=== PATIENT | female | born 1970 | race African-American/Black ===

== ENCOUNTER 2016-10-31 19:56 | Emergency (ER) | payer MEDICAID ==
[~2016-10-31] VITALS: Ht 160 cm; Wt 140.6 kg
[~2016-10-31 19:56] MED LIST: ACETAMINOPHEN-1 EAC1 ORAL; ALBUTEROL SULF8.5 GM INH; ASPIRIN EC81 MG ORAL; AZITHROMYCIN250 MG ORAL; FUROSEMIDE40 MG ORAL; GUAIFENESIN-CO118 M1 ORAL; HYDROCHLOROTHIA25 MG ORAL; K-DUR20 MEQ ORAL; MAALOX MAXIMUM355 M1 PO; METFORMIN HCL1000 M1 ORAL; ROBITUSSIN DM5 ML ORAL; lasix
--- NOTE | 2016-10-31 20:03 | Emergency Room Report ---
History of Present Illness General Chief Complaint: To Be Triaged Source: Patient Present Illness HPI 46YOF walk-in patient with pain in right foot for 1 week. Denies trauma. History of CHF, DM. Compliant with medication. "Doubled up" on Lasix 40mg today. Denies fever/chills, redness to lower extremities. Denies calf pain, swelling. Allergies: Coded Allergies: No Known Allergies (Unverified , 07/11/13) Patient History Past Medical History: DM, HTN, CHF Past Surgical History: none Pertinent Family History: none Social History: Denies: alcohol use, drug use, smoking Now: No Immunizations: UTD Reviewed Nursing Documentation: PMH: Agreed, PSxH: Agreed Nursing Documentation-PMH Hx Hypertension: Yes - Bronchitis Hx Asthma: Yes Hx Diabetes: Yes Review of Systems All Other Systems: negative except mentioned in HPI Physical Exam Sp02 EP Interpretation: reviewed, normal General Appearance: normal inspection, well appearing, no apparent distress, alert, GCS 15, non-toxic Head: normocephalic, atraumatic Eyes: bilateral eye EOMI, bilateral eye PERRL ENT: normal ENT inspection, hearing grossly normal, normal voice Neck: normal inspection, full range of motion, supple, no bony tend Respiratory: normal inspection, lungs clear, normal breath sounds, no respiratory distress, no retraction, no wheezing Cardiovascular #1: regular rate, rhythm, no edema Gastrointestinal: normal inspection, normal bowel sounds, non tender, soft, no guarding, no hernia Genitourinary: no CVA tenderness Neurologic: normal inspection, alert, oriented x3, responsive, allergy physician III-XII nml as tested, motor strength/tone normal, speech normal Psychiatric: normal inspection, judgement/insight normal, mood/affect normal Skin: normal inspection, normal color, no rash, other - Chronic venous stasis dermatitis bilaterally. No pitting edema Medical Decision Making Diagnostic Impression: Primary Impression: Edema, peripheral Additional Impression: Right foot pain ER Course Glucose 141 VS notable for mild tachycardia. Afebrile No acute respiratory distress No tachypnea Difficulty to auscultate lungs sounds d/t habitus but bedside sono does not show pulm edema Right foot pain and bilateral chronic venous stasis dermatitis No sign of cellulitis or signs of infection Atraumatic Advised to STOP ibuprofen if taking lasix Rx Robaxin PMD followup Status: improved Disposition: HOME, SELF-CARE Scripts Methocarbamol* (ROBAXIN-750*) 750 Mg Tablet 750 MG PO TID, #30 TAB 0 Refills Prov: GOYO NO M.D. 10/31/16 GOYO NO M.D. Oct 31, 2016 20:03
[2016-10-31] MEDS ORDERED: ROBAXIN-750750 MG PO (20:26)
[2016-10-31 20:34] VITALS: BP 108/54
== END 2016-10-31 20:38 | disposition home or self-care (01) ==
LOC: EMR 20:16
DX: M25.571 Pain in right ankle and joints of right foot (principal); R60.9 Edema, unspecified; I50.9 Heart failure, unspecified; E11.9 Type 2 diabetes mellitus without complications; I10 Essential (primary) hypertension; J45.909 Unspecified asthma, uncomplicated; R00.0 Tachycardia, unspecified; I83.12 Varicose veins of left lower extremity with inflammation; I83.11 Varicose veins of right lower extremity with inflammation
CPT/HCPCS: 99283

== ENCOUNTER 2016-12-16 10:22 | Inpatient (IN) | payer MEDICAID ==
[~2016-12-16] VITALS: Ht 160 cm; Wt 85.3 kg
[~2016-12-16 10:22] MED LIST changes: +HYDROCODON-ACE1 EA15 ORAL; +INDOMETHACIN50 MG PO; +ROBAXIN-750750 MG PO
[2016-12-16 10:56] VITALS: BP 91/55
[2016-12-16 11:26] LABS: BASOPHILS % (AUTO) 0.4 % (0.0-2.0); MEAN CORPUSCULAR HEMOGLOBIN 20.6 PG (27.0-31.0); MEAN CORPUSCULAR HGB CONC 28.5 G/DL (32.0-36.0); MEAN CORPUSCULAR VOLUME 72 FL (80-99); MEAN PLATELET VOLUME 7.7 FL (6.5-10.1); MONOCYTES % (AUTO) 8.7 % (1.0-10.0); NEUTROPHILS % (AUTO) 73.9 % (45.0-75.0); PLATELET COUNT 279 K/UL (150-450); RED BLOOD COUNT 7.38 M/UL (4.20-5.40); RED CELL DISTRIBUTION WIDTH 21.6 % (11.6-14.8); WHITE BLOOD COUNT 12.7 K/UL (4.8-10.8)
[2016-12-16 11:38] LABS: CALCIUM 8.9 mg/dL (8.6-10.2); CREATININE 1.8 mg/dL (0.5-0.9); GLOMERULAR FILTRATION RATE 36.7 mL/min (>60); POTASSIUM 4.2 mEQ/L (3.4-4.9); TOTAL PROTEIN 7.1 g/dL (6.6-8.7)
[2016-12-16 11:40] LABS: TROPONIN I 0.44 ng/mL (<=0.30)
--- NOTE | 2016-12-16 11:45 | Diagnostic Imaging Report ---
Indication: Dyspnea Comparison: 12/15/16 A single view chest radiograph was obtained. Findings: Moderate cardiomegaly noted. Pulmonary vascularity is again prominent but without significant change. No definite pleural effusions are appreciated. Bones are unremarkable. Impression: Query mild CHF. No change from the prior day
[2016-12-16 11:48] LABS: CKMB 6.6 ng/mL (< 3.8)
[2016-12-16 12:00] VITALS: BP 109/76
[2016-12-16 12:00] LABS: BILIRUBIN,DIRECT 0.5 mg/dL (0.1-0.3)
[2016-12-16 13:00] VITALS: BP 111/85
[2016-12-16 13:40] LABS: INR 1.2 (0.9-1.1); PROTHROMBIN TIME 12.7 SEC (9.30-11.50)
[2016-12-16] MEDS ORDERED: Enoxaparin 100mg Inj SUBQ ONE (13:45)
[2016-12-16] MEDS ORDERED: Ketorolac 30mg Inj IV PRN (14:00)
[2016-12-16] MEDS ORDERED: DuoNeb 0.5-3(2.5)mg/3ml neb HHN PRN (14:00)
[2016-12-16] MEDS ORDERED: Diltiazem 25mg/5ml IV PRN (14:00)
[2016-12-16] MEDS ORDERED: Enalaprilat 2.5mg/2ml Inj IV PRN (14:00)
[2016-12-16] MEDS ORDERED: Nitroglycerin Subl 0.4mg tab (Bottle Of 25) SL PRN (14:00)
[2016-12-16] MEDS ORDERED: Miralax 17gm pkt ORAL PRN (14:00)
--- NOTE | 2016-12-16 14:46 | Emergency Room Report ---
History of Present Illness General Chief Complaint: Headache Source: Patient Present Illness HPI 46-year-old female presents to ED for evaluation. Patient was here yesterday complaining of some chest pain. Had workup done EKG and chest x-ray which was negative. Patient was discharge. Patient is here today because she is feeling fullness in her ears. Denies any pain. Denies any fevers or chills. Denies cough. Per triage, patient O2 sats are in ED and BP is borderline low. Patient denies any chest pain or shortness of breath. Notes history of hypertension. Denies smoking or drug use. No other aggravating relieving factors. Denies any other associated symptoms Allergies: Coded Allergies: No Known Allergies (Unverified , 07/11/13) Patient History Past Medical History: DM, asthma Past Surgical History: none Pertinent Family History: none Social History: Denies: alcohol use, drug use, smoking Now: No Immunizations: UTD Reviewed Nursing Documentation: PMH: Agreed, PSxH: Agreed Nursing Documentation-PMH Past Medical History: No History, Except For Hx Hypertension: Yes - Bronchitis Hx Asthma: Yes Hx Diabetes: Yes - gout Review of Systems All Other Systems: negative except mentioned in HPI Physical Exam Vital Signs Date Time Temp Pulse Resp B/P Pulse Ox O2 Delivery O2 Flow Rate FiO2 12/16/16 10:41 102 18 88/58 89 Room Air 12/16/16 10:56 2.0 12/16/16 10:56 98.3 Sp02 EP Interpretation: reviewed, normal General Appearance: no apparent distress, alert, GCS 15, non-toxic Head: normocephalic, atraumatic Eyes: bilateral eye PERRL, bilateral eye normal inspection ENT: hearing grossly normal, normal pharynx, no angioedema, normal voice Neck: full range of motion, supple/symm/no masses Respiratory: chest non-tender, normal breath sounds, crackles, speaking full sentences Cardiovascular #1: regular rate, rhythm, no edema Cardiovascular #2: 2+ carotid (R), 2+ carotid (L), 2+ radial (R), 2+ radial (L) , 2+ dorsalis pedis (R), 2+ dorsalis pedis (L) Gastrointestinal: normal bowel sounds, non tender, soft, non-distended, no guarding, no rebound Rectal: deferred Genitourinary: normal inspection, no CVA tenderness Musculoskeletal: back normal, gait/station normal, normal range of motion, non- tender Neurologic: alert, oriented x3, responsive, motor strength/tone normal, sensory intact, speech normal Psychiatric: judgement/insight normal, memory normal, mood/affect normal, no suicidal/homicidal ideation Reflexes: 3+ bicep (R), 3+ bicep (L), 3+ tricep (R), 3+ tricep (L), 3+ knee (R) , 3+ knee (L) Skin: normal color, no rash, warm/dry, well hydrated Lymphatic: no adenopathy Procedures Critical Care Time Critical Care Time i. I feel this is a highly complex case requiring extensive working including EKG/Rhythm strip, Xray/CT/US, Blood/urine lab work, repeat exams while in ED, and administration of strong opiates/narcotics for pain control, admission to hospital or close patient follow up. Total time: 30 min bedside evaluation and treatment excludes procedures (EKG). Reason for critical care: Elevated troponin, shortness of breath Possible complications: hypotension, hypertension, WI, shock, arrhythmias, metabolic acidosis, end organ damage, respiratory failure. Interventions: Labs, IV fluids, EKG, chest x-ray, aspirin, Plavix, Lovenox Course: Patient here for fullness behind both ears. O2 saturation low, BP borderline low. History of hypertension. EKG shows no acute ischemic changes. Troponin elevated, BNP elevated. Chest x-ray shows CHF Consultations: nursing staff, EMS, family Performed by: Dr Kahn Tolerated well condition = critical j. because of unstable vital signs this patient had a condition that could potentially threaten life or limb. I feel this is a critical patient who required my full attention while patient was considered critical. Total Critical Care Time excluding procedures was greater than 35 minutes Medical Decision Making Diagnostic Impression: Primary Impression: NSTEMI (non-ST elevated myocardial infarction) Additional Impression: CHF (congestive heart failure) Qualified Codes: I50.9 - Heart failure, unspecified ER Course Hospital Course 46 yo F presents to ED with hypoxia, borderline low BP. seen yesterday in ER for chest pain Differential diagnoses include: WI/unstable angina, contusion, muscle strain, PTX, rib fracture Clinical course patient placed on stretcher, after initial history and physical, I ordered labs , IVFs, EKG, CXR, O2 NC labs reviewed- no leukocytosis, troponins 0.44, BNP elevated compared to yesterday EKG - no ST elevations Chest x-ray- CHF Given aspirin, Plavix, Lovenox. Case discussed with Dr. Buck and he agreed to accept the patient to his service for further care and support I. I feel this is a highly complex case requiring extensive working including EKG/Rhythm strip, Xray/CT/US, Blood/urine lab work, repeat exams while in ED, and administration of strong opiates/narcotics for pain control, admission to hospital or close patient follow up. Diagnosis - NSTEMI, CHF admitted to [facility] in serious condition Labs Test 12/16/16 11:15 12/16/16 13:20 White Blood Count 12.7 K/UL (4.8-10.8) Red Blood Count 7.38 M/UL (4.20-5.40) Hemoglobin 15.2 G/DL (12.0-16.0) Hematocrit 53.3 % (37.0-47.0) Mean Corpuscular Volume 72 FL (80-99) Mean Corpuscular Hemoglobin 20.6 PG (27.0-31.0) Mean Corpuscular Hemoglobin Concent 28.5 G/DL (32.0-36.0) Red Cell Distribution Width 21.6 % (11.6-14.8) Platelet Count 279 K/UL (150-450) Mean Platelet Volume 7.7 FL (6.5-10.1) Neutrophils (%) (Auto) 73.9 % (45.0-75.0) Lymphocytes (%) (Auto) 17.0 % (20.0-45.0) Monocytes (%) (Auto) 8.7 % (1.0-10.0) Eosinophils (%) (Auto) 0.0 % (0.0-3.0) Basophils (%) (Auto) 0.4 % (0.0-2.0) Sodium Level 135 mEQ/L (135-145) Potassium Level 4.2 mEQ/L (3.4-4.9) Chloride Level 91 mEQ/L (98-107) Carbon Dioxide Level 31 mEQ/L (20-30) Anion Gap 13 (5-15) Blood Urea Nitrogen 21 mg/dL (7-23) Creatinine 1.8 mg/dL (0.5-0.9) Estimat Glomerular Filtration Rate 36.7 mL/min (>60) Glucose Level 221 mg/dL (74-106) Calcium Level 8.9 mg/dL (8.6-10.2) Total Bilirubin 1.2 mg/dL (0.0-1.2) Direct Bilirubin 0.5 mg/dL (0.1-0.3) Aspartate Amino Transf (AST/SGOT) 64 U/L (5-40) Alanine Aminotransferase (ALT/SGPT) 33 U/L (3-33) Alkaline Phosphatase 82 U/L (35-104) Total Creatine Kinase 71 U/L (26-140) Creatine Kinase MB 6.6 ng/mL (< 3.8) Creatine Kinase MB Relative Index 9.2 Troponin I 0.44 ng/mL (<=0.30) Pro-B-Type Natriuretic Peptide 1148 pg/mL (0-125) Total Protein 7.1 g/dL (6.6-8.7) Albumin 3.6 g/dL (3.5-5.2) Globulin 3.5 g/dL Albumin/Globulin Ratio 1.0 (1.0-2.7) Prothrombin Time 12.7 SEC (9.30-11.50) Prothromb Time International Ratio 1.2 (0.9-1.1) Activated Partial Thromboplast Time 29 SEC (23-33) EKG Diagnostic Results Rate: normal Rhythm: NSR ST Segments: no acute changes ASA given to the pt in ED: Yes Rhythm Strip Diag. Results EP Interpretation: yes Rhythm: NSR, no PVC's, no ectopy Chest X-Ray Diagnostic Results EP Interpretation: No Findings: no consolidation, no effusion, no pneumothorax, no acute cardiopulmonary disease, other - CHF, cardiomegaly Number of Views: 1 Last Vital Signs Date Time Temp Pulse Resp B/P Pulse Ox O2 Delivery O2 Flow Rate FiO2 12/16/16 14:01 88 20 115/73 97 Nasal Cannula 3.0 12/16/16 13:00 98.3 Status: improved Disposition: ADMITTED INPATIENT Condition: Serious Referrals: NON PHYSICIAN (PCP) MARIVEL KAHN M.D. December 16, 2016 14:46
[2016-12-16 15:08] VITALS: BP 115/74
[2016-12-16] MEDS ORDERED: INDOMETHACIN75 MG ORAL (15:58)
[2016-12-16] MEDS ORDERED: HYDROCHLOROTHIA25 MG ORAL (16:00)
[2016-12-16] MEDS ORDERED: POTASSIUM CHLO20 ME2 ORAL (16:00)
[2016-12-16] MEDS: NovoLOG Insulin Flexpen SUBQ SCH ×2 (16:41→21:40)
[2016-12-16 20:00] VITALS: BP 108/55
--- NOTE | 2016-12-16 20:45 | Cardiology Progress Note ---
Assessment/Plan Assessment/Plan i am unalbel to get any information form thsi pt she is very drowsey and difficult to arouse will have stat abg to ro co2 retention her blake reviewed ekg no st elevation trop min elevated but of [id number] e sig despite renal insuf the renal isnfu appear to be acute since yest will need echo and repeat ekg hold off on diuretic until more data available will reeevlaute tomorrow has polycythemia as well may hav obesity hypoventilation syndrome Objective Last 24 Hour Vital Signs Date Time Temp Pulse Resp B/P Pulse Ox O2 Delivery O2 Flow Rate FiO2 12/16/16 20:26 95 Venturi Mask 50 12/16/16 20:26 Venturi Mask 50 12/16/16 15:16 89 12/16/16 15:08 97.5 90 20 115/74 94 Nasal Cannula 3.0 12/16/16 14:01 88 20 115/73 97 Nasal Cannula 3.0 12/16/16 13:00 98.3 82 18 111/85 95 Nasal Cannula 2.0 12/16/16 12:00 98.0 97 20 109/76 97 Nasal Cannula 2.0 12/16/16 10:56 98.3 95 26 91/55 93 Nasal Cannula 2.0 12/16/16 10:56 95 26 Nasal Cannula 2.0 12/16/16 10:41 102 18 88/58 89 Room Air Laboratory Tests Test 12/16/16 11:15 12/16/16 13:20 White Blood Count 12.7 K/UL (4.8-10.8) H Red Blood Count 7.38 M/UL (4.20-5.40) H Hemoglobin 15.2 G/DL (12.0-16.0) Hematocrit 53.3 % (37.0-47.0) H Mean Corpuscular Volume 72 FL (80-99) L Mean Corpuscular Hemoglobin 20.6 PG (27.0-31.0) L Mean Corpuscular Hemoglobin Concent 28.5 G/DL (32.0-36.0) L Red Cell Distribution Width 21.6 % (11.6-14.8) H Platelet Count 279 K/UL (150-450) # Mean Platelet Volume 7.7 FL (6.5-10.1) Neutrophils (%) (Auto) 73.9 % (45.0-75.0) Lymphocytes (%) (Auto) 17.0 % (20.0-45.0) L Monocytes (%) (Auto) 8.7 % (1.0-10.0) Eosinophils (%) (Auto) 0.0 % (0.0-3.0) Basophils (%) (Auto) 0.4 % (0.0-2.0) Sodium Level 135 mEQ/L (135-145) Potassium Level 4.2 mEQ/L (3.4-4.9) Chloride Level 91 mEQ/L (98-107) L Carbon Dioxide Level 31 mEQ/L (20-30) H Anion Gap 13 (5-15) Blood Urea Nitrogen 21 mg/dL (7-23) Creatinine 1.8 mg/dL (0.5-0.9) #H Estimat Glomerular Filtration Rate 36.7 mL/min (>60) Glucose Level 221 mg/dL (74-106) H Calcium Level 8.9 mg/dL (8.6-10.2) Total Bilirubin 1.2 mg/dL (0.0-1.2) Direct Bilirubin 0.5 mg/dL (0.1-0.3) H Aspartate Amino Transf (AST/SGOT) 64 U/L (5-40) H Alanine Aminotransferase (ALT/SGPT) 33 U/L (3-33) Alkaline Phosphatase 82 U/L (35-104) Total Creatine Kinase 71 U/L (26-140) Creatine Kinase MB 6.6 ng/mL (< 3.8) H Creatine Kinase MB Relative Index 9.2 Troponin I 0.44 ng/mL (<=0.30) *H Pro-B-Type Natriuretic Peptide 1148 pg/mL (0-125) H Total Protein 7.1 g/dL (6.6-8.7) Albumin 3.6 g/dL (3.5-5.2) Globulin 3.5 g/dL Albumin/Globulin Ratio 1.0 (1.0-2.7) Prothrombin Time 12.7 SEC (9.30-11.50) H Prothromb Time International Ratio 1.2 (0.9-1.1) H Activated Partial Thromboplast Time 29 SEC (23-33) CAPO KONG December 16, 2016 20:45
[2016-12-16 21:09] LABS: ABG BASE EXCESS -0.3; ABG PCO2 83.1 mmHg (35.0-45.0)
[2016-12-16 21:10] LABS: ABG ALLEN TEST POSITIVE
[2016-12-16] MEDS: Heparin 5000 units/ml inj SUBQ SCH (21:40)
--- NOTE | 2016-12-17 | History and Physical ---
History of Present Illness General Date patient seen: December 16, 2016 Reason for Hospitalization: chest pain Present Illness HPI 46-year-old female with hx of htn, DM, morbid obesity presented to ED for evaluation of some chest pain. Denies any other associated symptoms. Her troponin was mildly elevated and she was borderline hypoxemic. Allergies: Coded Allergies: No Known Allergies (Unverified , 07/11/13) Medication History Scheduled Furosemide* (Lasix*), 40 MG ORAL DAILY, (Reported) Hydrochlorothiazide* (Hydrochlorothiazide*), 25 MG ORAL DAILY, (Reported) Indomethacin* (Indomethacin*), 25 MG ORAL TID, (Reported) Metformin Hcl* (Metformin Hcl*), 1,000 MG ORAL BID, (Reported) Potassium Chloride (Potassium Chloride), 20 MEQ ORAL DAILY, (Reported) Discontinued Medications Acetaminophen With Codeine (T#3) (Tylenol #3 Tab*), 1 TAB ORAL Q8H PRN for For Pain Discontinued Reason: Therapy completed Acetaminophen With Codeine (T#3) (Tylenol #3 Tab*), 1 TAB ORAL Q8H PRN for For Pain Discontinued Reason: Therapy completed Albuterol Sulfate* (Albuterol Sulfate Mdi*), 2 PUFF INH Q6H Discontinued Reason: Therapy completed Albuterol Sulfate* (Albuterol Sulfate Mdi*), 2 PUFF INH Q4H PRN for cough/ wheezing Discontinued Reason: Therapy completed Aspirin Ec* (Aspirin Ec*), 81 MG ORAL DAILY, (Reported) Discontinued Reason: Pt stopped taking med Azithromycin* (Zithromax*), 250 MG ORAL DAILY Discontinued Reason: Therapy completed Furosemide* (Lasix*), 40 MG ORAL DAILY Discontinued Reason: Therapy completed Furosemide* (Lasix*), 40 MG ORAL BID Discontinued Reason: Therapy completed Guaifenesin/Codeine Phos* (Robitussin Ac*), 5 ML ORAL Q6H PRN for For Cough Discontinued Reason: Therapy completed Guaifenesin/Dextromethorphan (Guaifenesin Dm Syrup), 5 ML ORAL QHS Discontinued Reason: Therapy completed Hydrochlorothiazide* (Hydrochlorothiazide*), 25 MG ORAL DAILY, (Reported) Discontinued Reason: Therapy completed Hydrochlorothiazide* (Hydrochlorothiazide*), 25 MG ORAL DAILY Discontinued Reason: Therapy completed Hydrocodone/Acetaminophen 5-325* (Hydrocodone/Acetaminophen 5-325*), 1 TAB ORAL Q6H PRN for For Pain Discontinued Reason: MD discontinued med Indomethacin (Indomethacin), 50 MG PO TID Discontinued Reason: MD discontinued med Mag Hydrox/Al Hydrox/Simeth (Maalox Maximum Strength Susp), 15 ML PO TID Discontinued Reason: Therapy completed Metformin Hcl* (Metformin Hcl*), 1,000 MG ORAL BID Discontinued Reason: Therapy completed Metformin Hcl* (Metformin Hcl*), 1,000 MG ORAL BID Discontinued Reason: Therapy completed Methocarbamol* (Robaxin-750*), 750 MG PO TID Discontinued Reason: Therapy completed Potassium Chloride (Klor-Con M20), 20 MEQ ORAL DAILY Discontinued Reason: Therapy completed [lasix], (Reported) Discontinued Reason: Therapy completed Patient History Healthcare decision maker Self Resuscitation status Full Code Advanced Directive on File No Review of Systems All Other Systems: negative except mentioned in HPI Physical Exam General Appearance: WD/WN Lines, tubes and drains: peripheral, central line HEENT: normocephalic, atraumatic Neck: non-tender, normal alignment Respiratory/Chest: chest wall non-tender, lungs clear Cardiovascular/Chest: normal peripheral pulses, regular rhythm Abdomen: normal bowel sounds, soft Genitourinary/Rectal: normal genital exam Extremities: normal range of motion Last 24 Hour Vital Signs Date Time Temp Pulse Resp B/P Pulse Ox O2 Delivery O2 Flow Rate FiO2 12/16/16 23:19 94 23 95 Facial 30 12/16/16 21:34 94 21 93 Facial 30 12/16/16 21:15 16.0 30 12/16/16 20:26 95 Venturi Mask 50 12/16/16 20:26 Venturi Mask 50 12/16/16 20:00 98.2 95 24 108/55 95 Venturi Mask 50.0 12/16/16 20:00 95 12/16/16 15:16 89 12/16/16 15:08 97.5 90 20 115/74 94 Nasal Cannula 3.0 12/16/16 14:01 88 20 115/73 97 Nasal Cannula 3.0 12/16/16 13:00 98.3 82 18 111/85 95 Nasal Cannula 2.0 12/16/16 12:00 98.0 97 20 109/76 97 Nasal Cannula 2.0 12/16/16 10:56 98.3 95 26 91/55 93 Nasal Cannula 2.0 12/16/16 10:56 95 26 Nasal Cannula 2.0 12/16/16 10:41 102 18 88/58 89 Room Air Intake and Output 12/16/16 12/17/16 19:00 07:00 Intake Total 600 ml Balance 600 ml Intake Oral 100 ml IV Total 500 ml # Voids 1 Laboratory Tests Test 12/16/16 11:15 12/16/16 13:20 12/16/16 20:46 White Blood Count 12.7 K/UL (4.8-10.8) H Red Blood Count 7.38 M/UL (4.20-5.40) H Hemoglobin 15.2 G/DL (12.0-16.0) Hematocrit 53.3 % (37.0-47.0) H Mean Corpuscular Volume 72 FL (80-99) L Mean Corpuscular Hemoglobin 20.6 PG (27.0-31.0) L Mean Corpuscular Hemoglobin Concent 28.5 G/DL (32.0-36.0) L Red Cell Distribution Width 21.6 % (11.6-14.8) H Platelet Count 279 K/UL (150-450) # Mean Platelet Volume 7.7 FL (6.5-10.1) Neutrophils (%) (Auto) 73.9 % (45.0-75.0) Lymphocytes (%) (Auto) 17.0 % (20.0-45.0) L Monocytes (%) (Auto) 8.7 % (1.0-10.0) Eosinophils (%) (Auto) 0.0 % (0.0-3.0) Basophils (%) (Auto) 0.4 % (0.0-2.0) Sodium Level 135 mEQ/L (135-145) Potassium Level 4.2 mEQ/L (3.4-4.9) Chloride Level 91 mEQ/L (98-107) L Carbon Dioxide Level 31 mEQ/L (20-30) H Anion Gap 13 (5-15) Blood Urea Nitrogen 21 mg/dL (7-23) Creatinine 1.8 mg/dL (0.5-0.9) #H Estimat Glomerular Filtration Rate 36.7 mL/min (>60) Glucose Level 221 mg/dL (74-106) H Calcium Level 8.9 mg/dL (8.6-10.2) Total Bilirubin 1.2 mg/dL (0.0-1.2) Direct Bilirubin 0.5 mg/dL (0.1-0.3) H Aspartate Amino Transf (AST/SGOT) 64 U/L (5-40) H Alanine Aminotransferase (ALT/SGPT) 33 U/L (3-33) Alkaline Phosphatase 82 U/L (35-104) Total Creatine Kinase 71 U/L (26-140) Creatine Kinase MB 6.6 ng/mL (< 3.8) H Creatine Kinase MB Relative Index 9.2 Troponin I 0.44 ng/mL (<=0.30) *H Pro-B-Type Natriuretic Peptide 1148 pg/mL (0-125) H Total Protein 7.1 g/dL (6.6-8.7) Albumin 3.6 g/dL (3.5-5.2) Globulin 3.5 g/dL Albumin/Globulin Ratio 1.0 (1.0-2.7) Prothrombin Time 12.7 SEC (9.30-11.50) H Prothromb Time International Ratio 1.2 (0.9-1.1) H Activated Partial Thromboplast Time 29 SEC (23-33) Arterial Blood pH 7.185 (7.350-7.450) Arterial Blood Partial Pressure CO2 83.1 mmHg (35.0-45.0) *H Arterial Blood Partial Pressure O2 99.6 mmHg (75.0-100.0) Arterial Blood HCO3 30.7 mmol/L (22.0-26.0) H Arterial Blood Oxygen Saturation 96.7 % (92.0-98.0) Arterial Blood Base Excess -0.3 Nir Test Positive Height (Feet): 5 Height (Inches): 3.00 Weight (Pounds): 188 Medications Current Medications Medications (Trade) Dose Ordered Sig/Kiera Route PRN Reason Start Time Stop Time Status Last Admin Dose Admin Acetaminophen (Tylenol) 650 mg Q4H PRN ORAL FEVER 12/16/16 14:00 01/15/17 13:59 12/16/16 17:57 Albuterol/ Ipratropium (DuoNeb 0.5-3(2.5)mg/3ml) 3 ml Q4H PRN HHN Shortness of Breath 12/16/16 14:00 12/21/16 13:59 Aspirin (ASA) 162 mg DAILY ORAL 12/17/16 09:00 01/16/17 08:59 Dextrose (Dextrose 50%) STAT PRN IV Hypoglycemia 12/16/16 14:00 01/15/17 13:59 Diltiazem HCl (Cardizem) 10 mg Q1H PRN IV HR > 120 12/16/16 14:00 01/15/17 13:59 Enalaprilat (Vasotec) 2.5 mg Q6H PRN IV SBP > 160 12/16/16 14:00 01/15/17 13:59 Heparin Sodium (Porcine) (Heparin 5000 units/ml) 5,000 units EVERY 8 HOURS SUBQ 12/16/16 22:00 01/15/17 21:59 12/16/16 21:40 Insulin Aspart (NovoLOG) BEFORE MEALS AND HS SUBQ 12/16/16 16:30 01/15/17 16:29 12/16/16 21:40 Morphine Sulfate (Morphine Sulfate) 2 mg Q4H PRN IVP severe Pain (Pain Scale 7-10) 12/16/16 14:00 12/23/16 13:59 Nitroglycerin (Ntg) 0.4 mg Q5MIN PRN SL Prn Chest Pain 12/16/16 14:00 01/15/17 13:59 Ondansetron HCl (Zofran) 4 mg Q6H PRN IVP Nausea & Vomiting 12/16/16 14:00 01/15/17 13:59 Pantoprazole (Protonix) 40 mg DAILY ORAL 12/17/16 09:00 01/16/17 08:59 Polyethylene Glycol (Miralax) 17 gm DAILYPRN PRN ORAL Constipation 12/16/16 14:00 01/15/17 13:59 Temazepam (Restoril) 15 mg HSPRN PRN ORAL Insomnia 12/16/16 14:00 12/23/16 13:59 Assessment/Plan Problem List: (1) ACS (acute coronary syndrome) ICD Codes: I24.9 - Acute ischemic heart disease, unspecified SNOMED: 637748543 (2) CHF (congestive heart failure) ICD Codes: I50.9 - Heart failure, unspecified SNOMED: 66046962 Qualifiers: Qualified Codes: I50.9 - Heart failure, unspecified (3) NSTEMI (non-ST elevated myocardial infarction) ICD Codes: I21.4 - Non-ST elevation (NSTEMI) myocardial infarction SNOMED: 185064961 Assessment/Plan serial ekg, troponin echo titrate fio2 to sat of 92% cardiology evaluation AFRICA SINGH December 17, 2016 00:00
[2016-12-17 00:37] VITALS: BP 95/61
[2016-12-17 04:00] VITALS: BP 110/68
[2016-12-17 05:24] LABS: BASOPHILS % (AUTO) 0.9 % (0.0-2.0); EOSINOPHILS % (AUTO) 0.1 % (0.0-3.0); LYMPHOCYTES % (AUTO) 32.6 % (20.0-45.0); MEAN CORPUSCULAR HEMOGLOBIN 20.5 PG (27.0-31.0); MEAN CORPUSCULAR HGB CONC 28.6 G/DL (32.0-36.0); MEAN CORPUSCULAR VOLUME 72 FL (80-99); MEAN PLATELET VOLUME 7.5 FL (6.5-10.1); MONOCYTES % (AUTO) 10.9 % (1.0-10.0); NEUTROPHILS % (AUTO) 55.5 % (45.0-75.0); PLATELET COUNT 192 K/UL (150-450); RED BLOOD COUNT 6.99 M/UL (4.20-5.40); RED CELL DISTRIBUTION WIDTH 21.4 % (11.6-14.8)
[2016-12-17 05:43] LABS: CHOLESTEROL/HDL RATIO 3.8 (3.3-4.4); CRP QUANT 5.8 mg/dL (< 0.5)
[2016-12-17 05:54] LABS: TROPONIN I 1.1 ng/mL (<=0.30)
[2016-12-17 05:56] LABS: THYROID STIMULATING HORMONE 0.802 uIU/mL (0.300-4.500)
[2016-12-17 06:08] LABS: INR 1.2 (0.9-1.1); PROTHROMBIN TIME 12.2 SEC (9.30-11.50)
[2016-12-17] MEDS: Heparin 5000 units/ml inj SUBQ SCH ×3 (06:12→21:13)
[2016-12-17] MEDS: NovoLOG Insulin Flexpen SUBQ SCH ×4 (06:13→20:15)
[2016-12-17 08:00] VITALS: BP 124/72
[2016-12-17] MEDS: Aspirin Baby 81mg ORAL SCH (08:52)
[2016-12-17] MEDS: Atenolol 25mg tab ORAL SCH ×2 (08:53→17:54)
[2016-12-17] MEDS: Morphine Sulfate 2mg/ml Inj IVP PRN ×2 (08:54→17:07)
[2016-12-17] MEDS ORDERED: Furosemide 40mg tab ORAL SCH (09:00)
--- NOTE | 2016-12-17 11:29 | Pulmonology Progress Note ---
Assessment/Plan Problems: (1) ACS (acute coronary syndrome) (2) CHF (congestive heart failure) (3) NSTEMI (non-ST elevated myocardial infarction) Assessment/Plan echo noted, EF wnl, moderate pulmonary hypertension V/q scan to evaluate pulmonary hypertension. Creatinine 1.8. can't get CT angio renal evaluation urine for drug testing Subjective ROS Limited/Unobtainable: No Interval Events: still short of breath Allergies: Coded Allergies: No Known Allergies (Unverified , 07/11/13) Objective Last 24 Hour Vital Signs Date Time Temp Pulse Resp B/P Pulse Ox O2 Delivery O2 Flow Rate FiO2 12/17/16 10:19 86 22 99 Facial 40 12/17/16 09:30 97.9 12/17/16 09:22 96 18 98 12/17/16 08:53 96 124/72 12/17/16 08:00 97.9 96 20 124/72 99 Bi-pap 30 12/17/16 08:00 95 12/17/16 07:56 87 18 98 12/17/16 07:25 99 Bi-pap 40 12/17/16 07:25 Bi-pap 40 12/17/16 07:25 82 18 99 Facial 40 12/17/16 05:10 87 21 96 Facial 30 12/17/16 04:00 97.7 99 20 110/68 94 Nasal Cannula 2.0 12/17/16 04:00 98 12/17/16 03:30 92 23 95 Facial 30 12/17/16 01:11 99 22 94 Facial 30 12/17/16 00:37 97.9 97 24 95/61 94 Bi-pap 12/17/16 00:00 30 12/17/16 00:00 97 12/16/16 23:19 94 23 95 Facial 30 12/16/16 21:34 94 21 93 Facial 30 12/16/16 21:15 30 12/16/16 20:26 95 Venturi Mask 50 12/16/16 20:26 Venturi Mask 50 12/16/16 20:00 98.2 95 24 108/55 95 Venturi Mask 50.0 12/16/16 20:00 95 12/16/16 15:16 89 12/16/16 15:08 97.5 90 20 115/74 94 Nasal Cannula 3.0 12/16/16 14:01 88 20 115/73 97 Nasal Cannula 3.0 12/16/16 13:00 98.3 82 18 111/85 95 Nasal Cannula 2.0 12/16/16 12:00 98.0 97 20 109/76 97 Nasal Cannula 2.0 Intake and Output 12/16/16 12/17/16 19:00 07:00 Intake Total 600 ml 300 ml Balance 600 ml 300 ml Intake Oral 100 ml 300 ml IV Total 500 ml # Voids 1 General Appearance: WD/WN HEENT: normocephalic Respiratory/Chest: chest wall non-tender, lungs clear, no respiratory distress Cardiovascular: normal peripheral pulses, normal rate Abdomen: normal bowel sounds, soft, non tender Extremities: no cyanosis Neurologic/Psychiatric: wool 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 II-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 grossly normal, no motor/sensory deficits Lymphatic: no neck adenopathy Laboratory Tests 12/16/16 13:20: Prothrombin Time 12.7H, Prothromb Time International Ratio 1.2H, Activated Partial Thromboplast Time 29 12/16/16 20:46: Arterial Blood pH 7.185*L, Arterial Blood Partial Pressure CO2 83.1*H, Arterial Blood Partial Pressure O2 99.6, Arterial Blood HCO3 30.7H, Arterial Blood Oxygen Saturation 96.7, Arterial Blood Base Excess -0.3, Nir Test Positive 12/17/16 03:30: Prothrombin Time 12.2H, Prothromb Time International Ratio 1.2H, Activated Partial Thromboplast Time 33, White Blood Count 10.0, Red Blood Count 6.99H, Hemoglobin 14.3, Hematocrit 50.2H, Mean Corpuscular Volume 72L, Mean Corpuscular Hemoglobin 20.5L, Mean Corpuscular Hemoglobin Concent 28.6L, Red Cell Distribution Width 21.4H, Platelet Count 192, Mean Platelet Volume 7.5, Neutrophils (%) (Auto) 55.5, Lymphocytes (%) (Auto) 32.6, Monocytes (%) (Auto) 10.9H, Eosinophils (%) (Auto) 0.1, Basophils (%) (Auto) 0.9, Troponin I 1.10*H, C-Reactive Protein, Quantitative 5.8H, Pro-B-Type Natriuretic Peptide 3932H, Triglycerides Level 96, Cholesterol Level 136, LDL Cholesterol 81, HDL Cholesterol 36, Cholesterol/HDL Ratio 3.8, Thyroid Stimulating Hormone (TSH) 0.802 Current Medications Medications (Trade) Dose Ordered Sig/Kiera Route PRN Reason Start Time Stop Time Status Last Admin Dose Admin Acetaminophen (Tylenol) 650 mg Q4H PRN ORAL FEVER 12/16/16 14:00 01/15/17 13:59 12/17/16 04:05 Albuterol/ Ipratropium (DuoNeb 0.5-3(2.5)mg/3ml) 3 ml Q4H PRN HHN Shortness of Breath 12/16/16 14:00 12/21/16 13:59 Aspirin (ASA) 162 mg DAILY ORAL 12/17/16 09:00 01/16/17 08:59 12/17/16 08:52 Atenolol (Tenormin) 12.5 mg BID ORAL 12/17/16 09:00 01/16/17 08:59 12/17/16 08:53 Dextrose (Dextrose 50%) STAT PRN IV Hypoglycemia 12/16/16 14:00 01/15/17 13:59 Diltiazem HCl (Cardizem) 10 mg Q1H PRN IV HR > 120 12/16/16 14:00 01/15/17 13:59 Enalaprilat (Vasotec) 2.5 mg Q6H PRN IV SBP > 160 12/16/16 14:00 01/15/17 13:59 Heparin Sodium (Porcine) (Heparin 5000 units/ml) 5,000 units EVERY 8 HOURS SUBQ 12/16/16 22:00 01/15/17 21:59 12/17/16 06:12 Insulin Aspart (NovoLOG) BEFORE MEALS AND HS SUBQ 12/16/16 16:30 01/15/17 16:29 12/17/16 06:13 Morphine Sulfate (Morphine Sulfate) 2 mg Q4H PRN IVP severe Pain (Pain Scale 7-10) 12/16/16 14:00 12/23/16 13:59 12/17/16 08:54 Nitroglycerin (Ntg) 0.4 mg Q5MIN PRN SL Prn Chest Pain 12/16/16 14:00 01/15/17 13:59 Ondansetron HCl (Zofran) 4 mg Q6H PRN IVP Nausea & Vomiting 12/16/16 14:00 01/15/17 13:59 Pantoprazole (Protonix) 40 mg DAILY ORAL 12/17/16 09:00 01/16/17 08:59 12/17/16 08:52 Polyethylene Glycol (Miralax) 17 gm DAILYPRN PRN ORAL Constipation 12/16/16 14:00 01/15/17 13:59 Temazepam (Restoril) 15 mg HSPRN PRN ORAL Insomnia 12/16/16 14:00 12/23/16 13:59 AFRICA SINGH December 17, 2016 11:29
--- NOTE | 2016-12-17 11:35 | Diagnostic Imaging Report ---
APPROVED REPORT CPT Code: 43507 Present Symptoms Lower Extremity Pain: Bilateral Lower Extremity Edema: Bilateral Shortness of breath Comments: Hx CHF, diabetes, gout. Technically difficult study due to thigh/vessel depth and edema. RIGHT LEG: Venous imaging reveals a patent deep venous system. There is no evidence of thrombus within the femoral, popliteal or tibial segments. The mid to distal superficial femoral veins were not well visualized. The greater saphenous vein is also within normal limits. Doppler indicates normal spontaneous flow within these segments. LEFT LEG: Venous imaging reveals a patent deep venous system. There is no evidence of thrombus within the femoral, popliteal or tibial segments. The mid to distal superficial femoral veins were not well visualized. The greater saphenous vein is also within normal limits. Doppler indicates normal spontaneous flow within these segments.
[2016-12-17 12:00] VITALS: BP 108/71
[2016-12-17 16:00] VITALS: BP 101/57
--- NOTE | 2016-12-17 17:05 | Diagnostic Imaging Report ---
Indications: Dyspnea, pulmonary hypertension, congestive heart failure Technique: Multiplanar imaging of pulmonary perfusion performed with intravenous administration of 5.2 mCi 99M technetium MAA. Multiplanar imaging of pulmonary ventilation was performed with inhalation of 40.1 mCi 909M technetium-aerosolized DTPA.. Findings: Comparison: Chest radiograph 12/16/16 Ventilation images demonstrate homogeneous, symmetric distribution of radiotracer throughout both lungs, except for multiple foci of globular increased activity in both parahilar regions.. No defects are demonstrated. . Perfusion images demonstrate symmetrically decreased activity in both lung apices, mildly heterogeneous distribution of radiotracer throughout remainder of both lungs. No mismatched segmental or subsegmental perfusion defects are demonstrated. IMPRESSION: Low probability of pulmonary embolism
[2016-12-17 20:00] VITALS: BP 112/70
--- NOTE | 2016-12-17 20:53 | Cardiology Progress Note ---
Assessment/Plan Assessment/Plan [id number] Objective Last 24 Hour Vital Signs Date Time Temp Pulse Resp B/P Pulse Ox O2 Delivery O2 Flow Rate FiO2 12/17/16 19:24 77 20 Nasal Cannula 4.0 36 12/17/16 19:24 Nasal Cannula 4.0 36 12/17/16 19:24 97 Nasal Cannula 4.0 36 12/17/16 17:54 85 101/57 12/17/16 17:37 97.7 12/17/16 17:22 85 18 94 12/17/16 16:00 78 12/17/16 16:00 97.7 81 18 101/57 100 Nasal Cannula 12/17/16 14:43 80 18 94 12/17/16 12:36 83 18 95 12/17/16 12:00 97.4 96 18 108/71 99 Nasal Cannula 2.0 12/17/16 12:00 84 12/17/16 10:19 86 22 99 Facial 40 12/17/16 09:22 96 18 98 12/17/16 08:53 96 124/72 12/17/16 08:00 97.9 96 20 124/72 99 Bi-pap 30 12/17/16 08:00 95 12/17/16 07:56 87 18 98 12/17/16 07:25 99 Bi-pap 40 12/17/16 07:25 Bi-pap 40 12/17/16 07:25 82 18 99 Facial 40 12/17/16 05:10 87 21 96 Facial 30 12/17/16 04:00 97.7 99 20 110/68 94 Nasal Cannula 2.0 12/17/16 04:00 98 12/17/16 03:30 92 23 95 Facial 30 12/17/16 01:11 99 22 94 Facial 30 12/17/16 00:37 97.9 97 24 95/61 94 Bi-pap 12/17/16 00:00 30 12/17/16 00:00 97 12/16/16 23:19 94 23 95 Facial 30 12/16/16 21:34 94 21 93 Facial 30 12/16/16 21:15 30 Intake and Output 12/16/16 12/17/16 19:00 07:00 Intake Total 600 ml 300 ml Balance 600 ml 300 ml Intake Oral 100 ml 300 ml IV Total 500 ml # Voids 1 Laboratory Tests Test 12/17/16 03:30 White Blood Count 10.0 K/UL (4.8-10.8) Red Blood Count 6.99 M/UL (4.20-5.40) H Hemoglobin 14.3 G/DL (12.0-16.0) Hematocrit 50.2 % (37.0-47.0) H Mean Corpuscular Volume 72 FL (80-99) L Mean Corpuscular Hemoglobin 20.5 PG (27.0-31.0) L Mean Corpuscular Hemoglobin Concent 28.6 G/DL (32.0-36.0) L Red Cell Distribution Width 21.4 % (11.6-14.8) H Platelet Count 192 K/UL (150-450) Mean Platelet Volume 7.5 FL (6.5-10.1) Neutrophils (%) (Auto) 55.5 % (45.0-75.0) Lymphocytes (%) (Auto) 32.6 % (20.0-45.0) Monocytes (%) (Auto) 10.9 % (1.0-10.0) H Eosinophils (%) (Auto) 0.1 % (0.0-3.0) Basophils (%) (Auto) 0.9 % (0.0-2.0) Prothrombin Time 12.2 SEC (9.30-11.50) H Prothromb Time International Ratio 1.2 (0.9-1.1) H Activated Partial Thromboplast Time 33 SEC (23-33) Uric Acid 12.7 mg/dL (3.0-7.5) H Troponin I 1.10 ng/mL (<=0.30) *H C-Reactive Protein, Quantitative 5.8 mg/dL (< 0.5) H Pro-B-Type Natriuretic Peptide 3932 pg/mL (0-125) H Triglycerides Level 96 mg/dL (< 150) Cholesterol Level 136 mg/dL (< 200) LDL Cholesterol 81 mg/dL (60-99) HDL Cholesterol 36 mg/dL (> 60) Cholesterol/HDL Ratio 3.8 (3.3-4.4) Thyroid Stimulating Hormone (TSH) 0.802 uIU/mL (0.300-4.500) CAPO KONG December 17, 2016 20:53
[2016-12-18] VITALS (7 sets, daily range): BP systolic 98–138; BP diastolic 61–76
[2016-12-18] MEDS: Morphine Sulfate 2mg/ml Inj IVP PRN ×2 (02:17→20:24)
--- NOTE | 2016-12-18 02:32 | Consultation ---
DATE OF CONSULTATION: 12/17/2016 CARDIOLOGY CONSULTATION REFERRING PHYSICIAN: Luciana Buck M.D. REASON FOR CONSULTATION: Non ST-elevation myocardial infarction. HISTORY OF PRESENT ILLNESS: This is a middle-aged female, 46 years old, who presented to the hospital, she tells me originally because of gout and sharp shooting pains in the center of the chest that lasts only a few seconds, some pain in the right foot and some in the left foot and was treated with some medications initially. She was discharged home from the emergency room, however, she did come back again with recurrent symptoms. When I saw the patient for the first time yesterday in the evening, she was quite unresponsive and noncommunicative and blood gases were ordered. She was found to be severe in respiratory acidosis and was placed on BiPAP therapy. At the present time, she feels much better and she is awake and responsive today as opposite from yesterday. She tells me that these episodes of chest pain that she had are sharp shooting, only a few seconds, would recover, although she has not had the discomfort since she has been in the hospital. She uses one pillow at night. She does have occasional orthopnea, occasional PND, occasional dizziness, or lightheadedness with occasional heart palpitations. PAST MEDICAL HISTORY: Positive for a history of diabetes mellitus and history of high blood pressure. No heart attack. No cancer. No stroke. No hepatitis or tuberculosis. She does have a history of asthma. No ulcers. No kidney, liver, or thyroid problems. No anemia or arthritis. ALLERGIES: She is not allergic to any medication. SOCIAL HISTORY: She smokes approximately half a pack a day. 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 No drug use. REVIEW OF SYSTEMS: Gastrointestinal: She denies. Genitourinary: She denies. Pulmonary: She denies. Constitutional: She denies. Neurological: She denies. PHYSICAL EXAMINATION: GENERAL: Shows to be obese elderly female, in no respiratory distress. Awake, alert, and responsive. NECK: Supple. No jugular venous distention. No abdominojugular reflux noted. LUNGS: Decreased breath sounds are noted bilaterally. CARDIAC: Regular rate and rhythm. No heaves, thrills, gallops, or rubs are noted. ABDOMEN: Soft and obese. Positive bowel sounds. EXTREMITIES: A 1+ edema in the lower extremities bilaterally. NEUROLOGIC: She is awake, alert, and responsive. LABORATORY AND DIAGNOSTIC DATA: A chest x-ray performed showed mild congestive heart failure. Venous duplex study of the lower extremities shows no evidence of thrombus and ventilation/perfusion scan that was performed shows low probability for pulmonary embolism. Her laboratory values also include white count of 10, hemoglobin 14.2, and platelet count of 192,000. Blood gases, pH was 7.185, pCO2 83, pO2 of 99, and bicarbonate 31. Sodium 135, potassium 4.2, chloride 91, bicarbonate 31, BUN of 21, creatinine 1.8, glucose of 221. The proBNP is 1100 only, subsequently she had troponin of 0.4, postoperatively 1.1. CRP of 5.8, proBNP of 3900, and uric acid of 12.7. Total cholesterol 136, LDL of 86, and HDL of 36. TSH is 0.8, INR 1.1, and PTT of 36. Her EKG shows normal sinus rhythm, some nonspecific T-wave changes and some delay in R-wave progression. She has had an echocardiogram performed, preliminary report shows technically difficult study. Normal left ventricular systolic function to the extent visualized, severe right atrial enlargement, moderate right ventricular enlargement, moderate mitral regurgitation, and pulmonary systolic pressure 50. ASSESSMENT: 1. Obesity. 2. Atypical chest pain. 3. Abnormal cardiac enzymes questionable and non ST-elevation myocardial infarction. 4. Diabetes mellitus. 5. History of hypertension, now hypotension. 6. Right ventricular and right atrial enlargement. 7. Pulmonary hypertension. 8. Cor pulmonale. PLAN: Dr. Buck, this patient was seen in cardiac consultation. The patient's studies showed abnormal cardiac enzyme with troponin up to 1, although she has had this acute component of renal failure, which makes the possibility of abnormal cardiac enzymes related to that. The creatinine is acutely elevated and so are the cardiac enzymes. Repeat cardiac enzymes should be performed as well as creatinine evaluation. Await the final echocardiography reading. Aspirin and Plavix had been administered. I discontinued the dose of diuretics yesterday. She does have some polycythemia, possibly related to underlying lung issues possibly even obesity, hypoventilation syndrome. I will follow the patient along with you. We will try and determine if the patient needs invasive or noninvasive testing in the next few days. Jimmy Puente M.D. DR: Enrique JOB#: [id number] CC:
[2016-12-18 05:33] LABS: BASOPHILS % (AUTO) 0.2 % (0.0-2.0); EOSINOPHILS % (AUTO) 0.1 % (0.0-3.0); LYMPHOCYTES % (AUTO) 19.6 % (20.0-45.0); MEAN CORPUSCULAR HEMOGLOBIN 20.1 PG (27.0-31.0); MEAN CORPUSCULAR HGB CONC 28.6 G/DL (32.0-36.0); MEAN CORPUSCULAR VOLUME 70 FL (80-99); MEAN PLATELET VOLUME 8.4 FL (6.5-10.1); MONOCYTES % (AUTO) 15.5 % (1.0-10.0); NEUTROPHILS % (AUTO) 64.6 % (45.0-75.0); PLATELET COUNT 189 K/UL (150-450); RED BLOOD COUNT 6.97 M/UL (4.20-5.40); RED CELL DISTRIBUTION WIDTH 21.4 % (11.6-14.8); WHITE BLOOD COUNT 8.5 K/UL (4.8-10.8)
[2016-12-18] MEDS: NovoLOG Insulin Flexpen SUBQ SCH ×4 (05:35→20:53)
[2016-12-18] MEDS: Heparin 5000 units/ml inj SUBQ SCH ×3 (05:35→20:54)
[2016-12-18 05:50] LABS: ALBUMIN/GLOBULIN RATIO 0.8 (1.0-2.7); CALCIUM 8.9 mg/dL (8.6-10.2); GLOMERULAR FILTRATION RATE 32.5 mL/min (>60); POTASSIUM 4.5 mEQ/L (3.4-4.9); TROPONIN I 0.42 ng/mL (<=0.30)
--- NOTE | 2016-12-18 07:30 | Cardiology Progress Note ---
Assessment/Plan Assessment/Plan 1. Obesity. 2. Atypical chest pain. 3. Abnormal cardiac enzymes questionable and non ST-elevation myocardial infarction. 4. Diabetes mellitus. 5. History of hypertension, now hypotension. 6. Right ventricular and right atrial enlargement. 7. Pulmonary hypertension. 8. Cor pulmonale. cr is worse will startr on midl hydration conside nephrology evaluation off diurtic i dcd 2 days ago trop down trend on ecotrin preet start statin keep on bb evaluation option depend on her renal fucntion Objective Last 24 Hour Vital Signs Date Time Temp Pulse Resp B/P Pulse Ox O2 Delivery O2 Flow Rate FiO2 12/18/16 04:00 98.0 85 24 127/74 94 Nasal Cannula 4.0 12/18/16 04:00 86 12/18/16 04:00 4.0 12/18/16 02:47 98.0 12/18/16 00:00 83 12/18/16 00:00 98.0 85 18 138/76 94 Nasal Cannula 4.0 12/18/16 00:00 4.0 12/17/16 20:00 98.4 77 20 112/70 98 Nasal Cannula 4.0 12/17/16 20:00 77 12/17/16 20:00 4.0 12/17/16 19:24 77 20 Nasal Cannula 4.0 36 12/17/16 19:24 Nasal Cannula 4.0 36 12/17/16 19:24 97 Nasal Cannula 4.0 36 12/17/16 17:54 85 101/57 12/17/16 17:22 85 18 94 12/17/16 16:00 78 12/17/16 16:00 97.7 81 18 101/57 100 Nasal Cannula 12/17/16 14:43 80 18 94 12/17/16 12:36 83 18 95 12/17/16 12:00 97.4 96 18 108/71 99 Nasal Cannula 2.0 12/17/16 12:00 84 12/17/16 10:19 86 22 99 Facial 40 12/17/16 09:22 96 18 98 12/17/16 08:53 96 124/72 12/17/16 08:00 97.9 96 20 124/72 99 Bi-pap 30 12/17/16 08:00 95 12/17/16 07:56 87 18 98 Intake and Output 12/17/16 12/18/16 19:00 07:00 Intake Total 520 ml Output Total 202 ml Balance 520 ml -202 ml Intake Oral 520 ml Output Urine Total 202 ml # Voids 2 Laboratory Tests Test 12/18/16 03:40 White Blood Count 8.5 K/UL (4.8-10.8) Red Blood Count 6.97 M/UL (4.20-5.40) H Hemoglobin 14.0 G/DL (12.0-16.0) Hematocrit 49.1 % (37.0-47.0) H Mean Corpuscular Volume 70 FL (80-99) L Mean Corpuscular Hemoglobin 20.1 PG (27.0-31.0) L Mean Corpuscular Hemoglobin Concent 28.6 G/DL (32.0-36.0) L Red Cell Distribution Width 21.4 % (11.6-14.8) H Platelet Count 189 K/UL (150-450) Mean Platelet Volume 8.4 FL (6.5-10.1) Neutrophils (%) (Auto) 64.6 % (45.0-75.0) Lymphocytes (%) (Auto) 19.6 % (20.0-45.0) L Monocytes (%) (Auto) 15.5 % (1.0-10.0) H Eosinophils (%) (Auto) 0.1 % (0.0-3.0) Basophils (%) (Auto) 0.2 % (0.0-2.0) Sodium Level 137 mEQ/L (135-145) Potassium Level 4.5 mEQ/L (3.4-4.9) Chloride Level 92 mEQ/L (98-107) L Carbon Dioxide Level 31 mEQ/L (20-30) H Anion Gap 14 (5-15) Blood Urea Nitrogen 43 mg/dL (7-23) H Creatinine 2.0 mg/dL (0.5-0.9) H Estimat Glomerular Filtration Rate 32.5 mL/min (>60) Glucose Level 142 mg/dL (74-106) H Calcium Level 8.9 mg/dL (8.6-10.2) Total Bilirubin 0.7 mg/dL (0.0-1.2) Aspartate Amino Transf (AST/SGOT) 48 U/L (5-40) H Alanine Aminotransferase (ALT/SGPT) 45 U/L (3-33) H Alkaline Phosphatase 74 U/L (35-104) Troponin I 0.42 ng/mL (<=0.30) *H Pro-B-Type Natriuretic Peptide 4059 pg/mL (0-125) H Total Protein 7.0 g/dL (6.6-8.7) Albumin 3.3 g/dL (3.5-5.2) L Globulin 3.7 g/dL Albumin/Globulin Ratio 0.8 (1.0-2.7) L CAPO KONG December 18, 2016 07:30
[2016-12-18] MEDS: Aspirin Baby 81mg ORAL SCH (10:04)
[2016-12-18] MEDS: Atenolol 25mg tab ORAL SCH ×2 (10:05→18:06)
--- NOTE | 2016-12-18 10:17 | Pulmonology Progress Note ---
Assessment/Plan Problems: (1) ACS (acute coronary syndrome) (2) CHF (congestive heart failure) (3) NSTEMI (non-ST elevated myocardial infarction) (4) ATN (acute tubular necrosis) Assessment/Plan echo noted, EF wnl, moderate pulmonary hypertension V/q scan to evaluate pulmonary hypertension. low probability for PE renal evaluation pending, on low dose lV fluid urine for drug testing Subjective ROS Limited/Unobtainable: No Constitutional: Reports: no symptoms Allergies: Coded Allergies: No Known Allergies (Unverified , 07/11/13) Objective Last 24 Hour Vital Signs Date Time Temp Pulse Resp B/P Pulse Ox O2 Delivery O2 Flow Rate FiO2 12/18/16 10:05 88 121/76 12/18/16 07:34 79 18 Nasal Cannula 4.0 36 12/18/16 07:34 Nasal Cannula 4.0 36 12/18/16 07:34 98 Nasal Cannula 4.0 36 12/18/16 04:00 98.0 85 24 127/74 94 Nasal Cannula 4.0 12/18/16 04:00 86 12/18/16 04:00 4.0 12/18/16 02:47 98.0 12/18/16 00:00 83 12/18/16 00:00 98.0 85 18 138/76 94 Nasal Cannula 4.0 12/18/16 00:00 4.0 12/17/16 20:00 98.4 77 20 112/70 98 Nasal Cannula 4.0 12/17/16 20:00 77 12/17/16 20:00 4.0 12/17/16 19:24 77 20 Nasal Cannula 4.0 36 12/17/16 19:24 Nasal Cannula 4.0 36 12/17/16 19:24 97 Nasal Cannula 4.0 36 12/17/16 17:54 85 101/57 12/17/16 17:22 85 18 94 12/17/16 16:00 78 12/17/16 16:00 97.7 81 18 101/57 100 Nasal Cannula 12/17/16 14:43 80 18 94 12/17/16 12:36 83 18 95 12/17/16 12:00 97.4 96 18 108/71 99 Nasal Cannula 2.0 12/17/16 12:00 84 12/17/16 10:19 86 22 99 Facial 40 Intake and Output 12/17/16 12/18/16 19:00 07:00 Intake Total 520 ml Output Total 202 ml Balance 520 ml -202 ml Intake Oral 520 ml Output Urine Total 202 ml # Voids 2 General Appearance: WD/WN HEENT: normocephalic, atraumatic Respiratory/Chest: chest wall non-tender, lungs clear Cardiovascular: normal peripheral pulses, normal rate Abdomen: normal bowel sounds, soft, non tender Genitourinary: normal external genitalia Extremities: no clubbing Neurologic/Psychiatric: automation tender II-XII grossly normal, no motor/sensory deficits Lymphatic: no neck adenopathy Musculoskeletal: normal muscle bulk Laboratory Tests 12/18/16 03:40: White Blood Count 8.5, Red Blood Count 6.97H, Hemoglobin 14.0, Hematocrit 49.1H , Mean Corpuscular Volume 70L, Mean Corpuscular Hemoglobin 20.1L, Mean Corpuscular Hemoglobin Concent 28.6L, Red Cell Distribution Width 21.4H, Platelet Count 189, Mean Platelet Volume 8.4, Neutrophils (%) (Auto) 64.6, Lymphocytes (%) (Auto) 19.6L, Monocytes (%) (Auto) 15.5H, Eosinophils (%) (Auto ) 0.1, Basophils (%) (Auto) 0.2, Sodium Level 137, Potassium Level 4.5, Chloride Level 92L, Carbon Dioxide Level 31H, Anion Gap 14, Blood Urea Nitrogen 43H, Creatinine 2.0H, Estimat Glomerular Filtration Rate 32.5, Glucose Level 142H, Calcium Level 8.9, Total Bilirubin 0.7, Aspartate Amino Transf (AST/SGOT) 48H, Alanine Aminotransferase (ALT/SGPT) 45H, Alkaline Phosphatase 74, Troponin I 0.42*H, Pro-B-Type Natriuretic Peptide 4059H, Total Protein 7.0, Albumin 3.3L , Globulin 3.7, Albumin/Globulin Ratio 0.8L Current Medications Medications (Trade) Dose Ordered Sig/Kiera Route PRN Reason Start Time Stop Time Status Last Admin Dose Admin Acetaminophen (Tylenol) 650 mg Q4H PRN ORAL FEVER 12/16/16 14:00 01/15/17 13:59 12/17/16 04:05 Albuterol/ Ipratropium (DuoNeb 0.5-3(2.5)mg/3ml) 3 ml Q4H PRN HHN Shortness of Breath 12/16/16 14:00 12/21/16 13:59 Aspirin (ASA) 162 mg DAILY ORAL 12/17/16 09:00 01/16/17 08:59 12/18/16 10:04 Atenolol 12.5 mg 12.5 mg BID ORAL 12/17/16 09:00 01/16/17 08:59 12/18/16 10:05 Dextrose (Dextrose 50%) STAT PRN IV Hypoglycemia 12/16/16 14:00 01/15/17 13:59 Diltiazem HCl (Cardizem) 10 mg Q1H PRN IV HR > 120 12/16/16 14:00 01/15/17 13:59 Enalaprilat (Vasotec) 2.5 mg Q6H PRN IV SBP > 160 12/16/16 14:00 01/15/17 13:59 Heparin Sodium (Porcine) (Heparin 5000 units/ml) 5,000 units EVERY 8 HOURS SUBQ 12/16/16 22:00 01/15/17 21:59 12/18/16 05:35 Insulin Aspart (NovoLOG) BEFORE MEALS AND HS SUBQ 12/16/16 16:30 01/15/17 16:29 12/18/16 05:35 Morphine Sulfate (Morphine Sulfate) 2 mg Q4H PRN IVP severe Pain (Pain Scale 7-10) 12/16/16 14:00 12/23/16 13:59 12/18/16 02:17 Nitroglycerin (Ntg) 0.4 mg Q5MIN PRN SL Prn Chest Pain 12/16/16 14:00 01/15/17 13:59 Ondansetron HCl (Zofran) 4 mg Q6H PRN IVP Nausea & Vomiting 12/16/16 14:00 01/15/17 13:59 Pantoprazole (Protonix) 40 mg DAILY ORAL 12/17/16 09:00 01/16/17 08:59 12/18/16 10:05 Polyethylene Glycol (Miralax) 17 gm DAILYPRN PRN ORAL Constipation 12/16/16 14:00 01/15/17 13:59 Sodium Chloride (Sodium Chloride 1000ml bag) 1,000 ml @ 50 mls/hr Q20H IV 12/18/16 08:00 01/17/17 07:59 12/18/16 10:06 Temazepam (Restoril) 15 mg HSPRN PRN ORAL Insomnia 12/16/16 14:00 12/23/16 13:59 AFRICA SINGH December 18, 2016 10:17
--- NOTE | 2016-12-18 12:28 | Consultation ---
Consult Note Consult Note asked to eval for renal failure Patient is admitted for NV- Cr 1.8 to 2 46-year-old female presents to ED for evaluation. Patient was here yesterday complaining of some chest pain. Had workup done EKG and chest x-ray which was negative. Patient was discharge. Patient is here today because she is feeling fullness in her ears. Denies any pain. Denies any fevers or chills. Denies cough. Per triage, patient O2 sats are in ED and BP is borderline low. Patient denies any chest pain or shortness of breath. Notes history of hypertension. Denies smoking or drug use. No other aggravating relieving factors. Denies any other associated symptoms Past Medical History: DM, asthma Hx Hypertension: Yes - Bronchitis Hx Asthma: Yes Hx Diabetes: Yes - gout PH: Positive for a history of diabetes mellitus and history of high blood pressure. No heart attack. No cancer. No stroke. No hepatitis or tuberculosis. She does have a history of asthma. No ulcers. No kidney, liver, or thyroid problems. . Assessment/Plan Status; Acute on chronic renal failure- likely due to DM and HTN 1) ACS (acute coronary syndrome) (2) CHF (congestive heart failure) (3) NSTEMI (non-ST elevated myocardial infarction) (4) Pulmonary HTN and Asthma (5) Obesity Plan; Optimize cardiac and pulmonary status- Avoid Nephrotoxics- Keep BP and BS under control- Urine studies- monitor renal parameters GAUTAM PENA December 18, 2016 12:28
[2016-12-18 16:26] LABS: APPEARANCE,URINE SLIGHTLY CLOUDY; KETONES,URINE NEGATIVE (NEGATIVE); LEUKOCYTE ESTERASE ,URINE 1+ (NEGATIVE); NITRITE,URINE NEGATIVE (NEGATIVE); PH,URINE 5 (4.5-8.0); PROTEIN,URINE 2+ (NEGATIVE); UROBILINOGEN,URINE 4 MG/DL (0.0-1.0)
[2016-12-18 16:42] LABS: ICTOTEST NEGATIVE
[2016-12-18 16:44] LABS: RBC,URINE 0-2 /HPF (0 - 2)
[2016-12-18 16:45] LABS: BACTERIA,URINE MODERATE /HPF; SQUAMOUS EPITHELIAL CELL,UR FEW /LPF (NONE/OCC)
--- NOTE | 2016-12-18 19:02 | Cardiology Report ---
APPROVED REPORT EKG Measurement Heart [id number] Normal sinus rhythm Possible Left atrial enlargement Anterior infarct, age undetermined Abnormal ECG
[2016-12-18] MEDS ORDERED: Nitroglycerin Subl 0.4mg tab (Bottle Of 25) SL PRN (20:15)
[2016-12-18] MEDS ORDERED: DuoNeb 0.5-3(2.5)mg/3ml neb HHN PRN (21:00)
[2016-12-18] MEDS ORDERED: Enalaprilat 2.5mg/2ml Inj IV PRN (21:00)
[2016-12-18] MEDS ORDERED: Miralax 17gm pkt ORAL PRN (21:00)
[2016-12-18] MEDS ORDERED: Diltiazem 25mg/5ml IV PRN (21:00)
[2016-12-19 00:14] VITALS: BP 104/59
[2016-12-19 04:01] VITALS: BP 106/63
[2016-12-19] MEDS: NovoLOG Insulin Flexpen SUBQ SCH ×4 (05:56→21:05)
[2016-12-19] MEDS: Heparin 5000 units/ml inj SUBQ SCH ×3 (05:58→21:06)
[2016-12-19 07:46] LABS: MEAN CORPUSCULAR HEMOGLOBIN 20.5 PG (27.0-31.0); MEAN CORPUSCULAR HGB CONC 28.9 G/DL (32.0-36.0); MEAN CORPUSCULAR VOLUME 71 FL (80-99); MEAN PLATELET VOLUME 7.2 FL (6.5-10.1); PLATELET COUNT 157 K/UL (150-450); RED BLOOD COUNT 7.21 M/UL (4.20-5.40); RED CELL DISTRIBUTION WIDTH 21.6 % (11.6-14.8); WHITE BLOOD COUNT 12.1 K/UL (4.8-10.8)
[2016-12-19 07:53] LABS: HEMOGLOBIN A1C 7.1 % (< 6.0)
[2016-12-19 07:59] LABS: ALBUMIN/GLOBULIN RATIO 0.8 (1.0-2.7); CALCIUM 9.4 mg/dL (8.6-10.2); CREATININE 1.8 mg/dL (0.5-0.9); CRP QUANT 3.5 mg/dL (< 0.5); GLOMERULAR FILTRATION RATE 36.7 mL/min (>60); MAGNESIUM 2.4 mg/dL (1.7-2.5); PHOSPHORUS 4.6 mg/dL (2.5-4.8); POTASSIUM 4.5 mEQ/L (3.4-4.9); TOTAL PROTEIN 7.4 g/dL (6.6-8.7)
[2016-12-19 08:00] VITALS: BP 114/76
[2016-12-19 08:20] LABS: URIC ACID 15.4 mg/dL (3.0-7.5)
[2016-12-19 08:40] LABS: TROPONIN I 0.54 ng/mL (<=0.30)
[2016-12-19 08:41] LABS: BILIRUBIN,DIRECT 0.4 mg/dL (0.1-0.3)
[2016-12-19] MEDS: Aspirin Baby 81mg ORAL SCH (08:57)
[2016-12-19] MEDS: Atenolol 25mg tab ORAL SCH ×2 (08:58→18:05)
--- NOTE | 2016-12-19 09:51 | Pulmonology Progress Note ---
Assessment/Plan Problems: (1) ACS (acute coronary syndrome) (2) CHF (congestive heart failure) (3) NSTEMI (non-ST elevated myocardial infarction) (4) ATN (acute tubular necrosis) Assessment/Plan echo noted, EF wnl, moderate pulmonary hypertension V/q scan to evaluate pulmonary hypertension. low probability for PE renal evaluation appreciate on low dose lV fluid troponin slightly higher, ? significance Subjective ROS Limited/Unobtainable: No Constitutional: Reports: no symptoms HEENT: Repors: no symptoms Respiratory: Reports: no symptoms Allergies: Coded Allergies: No Known Allergies (Unverified , 07/11/13) Objective Last 24 Hour Vital Signs Date Time Temp Pulse Resp B/P Pulse Ox O2 Delivery O2 Flow Rate FiO2 12/19/16 08:58 71 114/76 12/19/16 08:00 96.6 71 18 114/76 Nasal Cannula 2.0 98 12/19/16 04:01 98.6 76 19 106/63 95 Nasal Cannula 2.0 12/19/16 04:00 76 12/19/16 00:16 4.0 12/19/16 00:14 98.4 73 18 104/59 99 Nasal Cannula 2.0 12/19/16 00:00 74 12/18/16 20:00 97.3 71 19 104/61 94 Nasal Cannula 2.0 12/18/16 20:00 71 12/18/16 18:06 78 155/76 12/18/16 16:00 97.0 79 20 108/70 92 Nasal Cannula 4.0 12/18/16 16:00 4.0 12/18/16 16:00 77 12/18/16 12:00 96.8 76 18 98/74 93 Nasal Cannula 4.0 12/18/16 12:00 76 12/18/16 12:00 4.0 12/18/16 11:39 80 18 97 Nasal Cannula 2.0 28 12/18/16 11:38 28 12/18/16 11:37 80 18 97 Nasal Cannula 2.0 28 12/18/16 11:36 80 18 Nasal Cannula 4.0 36 12/18/16 11:36 97 Nasal Cannula 4.0 36 12/18/16 10:05 88 121/76 Intake and Output 12/18/16 12/19/16 19:00 07:00 Intake Total 1650 ml 600 ml Output Total 325 ml Balance 1325 ml 600 ml Intake Oral 1300 ml IV Total 350 ml 600 ml Output Urine Total 325 ml General Appearance: WD/WN HEENT: normocephalic Respiratory/Chest: chest wall non-tender, normal breath sounds Breasts: no masses Cardiovascular: normal peripheral pulses Abdomen: normal bowel sounds, soft, non tender Genitourinary: normal external genitalia Skin: no rash Lymphatic: no neck adenopathy Laboratory Tests 12/18/16 11:49: Urine Color Cynthia, Urine Appearance Slightly cloudy, Urine pH 5, Urine Specific [place] 1.020, Urine Protein 2+H, Urine Glucose (UA) Negative, Urine Ketones Negative, Urine Occult Blood Negative, Urine Nitrite Negative, Urine Bilirubin 1 +H, Urine Ictotest Negative, Urine Urobilinogen 4H, Urine Leukocyte Esterase 1+H , Urine RBC 0-2, Urine WBC 2-4, Urine Squamous Epithelial Cells Few, Urine Bacteria ModerateH, Urine Random Sodium < 10, Urine Opiates Screen PositiveH, Urine Barbiturates Screen Negative, Phencyclidine (PCP) Screen Negative, Urine Amphetamines Screen Negative, Urine Benzodiazepines Screen Negative, Urine Cocaine Screen Negative, Urine Marijuana (THC) Screen Negative 12/19/16 06:15: Urine Eosinophils [Pending] 12/19/16 06:33: White Blood Count 12.1H, Red Blood Count 7.21H, Hemoglobin 14.8, Hematocrit 51.3H, Mean Corpuscular Volume 71L, Mean Corpuscular Hemoglobin 20.5L, Mean Corpuscular Hemoglobin Concent 28.9L, Red Cell Distribution Width 21.6H, Platelet Count 157, Mean Platelet Volume 7.2, Neutrophils (%) (Auto) , Lymphocytes (%) (Auto) , Monocytes (%) (Auto) , Eosinophils (%) (Auto) , Basophils (%) (Auto) , Neutrophils % (Manual) [Pending], Lymphocytes % (Manual) [Pending], Platelet Estimate [Pending], Platelet Morphology [Pending], Erythrocyte Sedimentation Rate [Pending], Sodium Level 137, Potassium Level 4.5 , Chloride Level 91L, Carbon Dioxide Level 32H, Anion Gap 14, Blood Urea Nitrogen 56H, Creatinine 1.8H, Estimat Glomerular Filtration Rate 36.7, Glucose Level 149H, Hemoglobin A1c 7.1H, Uric Acid 15.4H, Calcium Level 9.4, Phosphorus Level 4.6, Magnesium Level 2.4, Total Bilirubin 1.4H, Direct Bilirubin 0.4H, Gamma Glutamyl Transpeptidase 29, Aspartate Amino Transf (AST/SGOT) 48H, Alanine Aminotransferase (ALT/SGPT) 54H, Alkaline Phosphatase 83, Total Creatine Kinase 34, Troponin I 0.54*H, C-Reactive Protein, Quantitative 3.5H, Pro-B-Type Natriuretic Peptide 3419H, Total Protein 7.4, Albumin 3.5, Globulin 3.9, Albumin/Globulin Ratio 0.8L Current Medications Medications (Trade) Dose Ordered Sig/Kiera Route PRN Reason Start Time Stop Time Status Last Admin Dose Admin Acetaminophen (Tylenol) 650 mg Q4H PRN ORAL FEVER 12/18/16 21:00 01/17/17 20:59 Albuterol/ Ipratropium (DuoNeb 0.5-3(2.5)mg/3ml) 3 ml Q4H PRN HHN Shortness of Breath 12/18/16 21:00 12/23/16 20:59 Aspirin (ASA) 162 mg DAILY ORAL 12/19/16 09:00 01/18/17 08:59 12/19/16 08:57 Atenolol (Tenormin) 12.5 mg BID ORAL 12/19/16 09:00 01/18/17 08:59 12/19/16 08:58 Dextrose (Dextrose 50%) STAT PRN IV Hypoglycemia 12/18/16 21:00 01/17/17 20:59 Diltiazem HCl (Cardizem) 10 mg Q1H PRN IV HR > 120 12/18/16 21:00 01/17/17 20:59 Enalaprilat (Vasotec) 2.5 mg Q6H PRN IV SBP > 160 12/18/16 21:00 01/17/17 20:59 Heparin Sodium (Porcine) (Heparin 5000 units/ml) 5,000 units EVERY 8 HOURS SUBQ 12/18/16 22:00 01/17/17 21:59 12/19/16 05:58 Insulin Aspart (NovoLOG) BEFORE MEALS AND HS SUBQ 12/18/16 21:00 01/17/17 20:59 12/19/16 05:56 Morphine Sulfate (Morphine Sulfate) 2 mg Q4H PRN IVP Severe Pain (Pain Scale 7-10) 12/18/16 21:00 12/25/16 20:59 12/18/16 20:24 Nitroglycerin (Ntg) 0.4 mg Q5MIN PRN SL Prn Chest Pain 12/18/16 20:15 01/17/17 20:14 Ondansetron HCl (Zofran) 4 mg Q6H PRN IVP Nausea & Vomiting 12/18/16 21:00 01/17/17 20:59 Polyethylene Glycol (Miralax) 17 gm DAILYPRN PRN ORAL Constipation 12/18/16 21:00 01/17/17 20:59 Sodium Chloride (Sodium Chloride 1000ml bag) 1,000 ml @ 50 mls/hr Q20H IV 12/18/16 21:00 01/17/17 20:59 12/18/16 20:51 Temazepam (Restoril) 15 mg HSPRN PRN ORAL Insomnia 12/18/16 21:00 12/25/16 20:59 AFRICA SINGH December 19, 2016 09:51
[2016-12-19 10:02] LABS: ANISOCYTOSIS 3+; BAND NEUTROPHILS % (MANUAL) 0 % (0-8); BASOPHILS % (MANUAL) 2 % (0-2); EOSINOPHILS % (MANUAL) 0 % (0-3); LYMPHOCYTES % (MANUAL) 42 % (20-45); MICROCYTES 2+; NEUTROPHILS % (MANUAL) 47 % (45-75); NUCLEATED RED BLOOD CELLS 8 /100 WBC; PLATELET CLUMPS 2+; PLATELET ESTIMATE ADEQUATE; TOTAL CELLS COUNTED 100
[2016-12-19 10:27] LABS: ERYTHROCYTE SEDIMENTATION RATE 5 MM/HR (0-20)
[2016-12-19 10:33] LABS: PLATELET MORPHOLOGY NORMAL
--- NOTE | 2016-12-19 10:35 | General Progress Note ---
Assessment/Plan Status: unchanged Status Narrative S Cr stable Assessment/Plan Acute on chronic renal failure- likely due to DM and HTN 1) ACS (acute coronary syndrome) (2) CHF (congestive heart failure) (3) NSTEMI (non-ST elevated myocardial infarction) (4) Pulmonary HTN and Asthma (5) Obesity (6) HyperUrecemia Plan; add allopurinol- Optimize cardiac and pulmonary status- Avoid Nephrotoxics- Keep BP and BS under control- Urine studies- monitor renal parameters Subjective ROS Limited/Unobtainable: No Constitutional: Reports: malaise, weakness Allergies: Coded Allergies: No Known Allergies (Unverified , 07/11/13) Objective Last 24 Hour Vital Signs Date Time Temp Pulse Resp B/P Pulse Ox O2 Delivery O2 Flow Rate FiO2 12/19/16 08:58 71 114/76 12/19/16 08:00 96.6 71 18 114/76 Nasal Cannula 2.0 98 12/19/16 04:01 98.6 76 19 106/63 95 Nasal Cannula 2.0 12/19/16 04:00 76 12/19/16 00:16 4.0 12/19/16 00:14 98.4 73 18 104/59 99 Nasal Cannula 2.0 12/19/16 00:00 74 12/18/16 20:00 97.3 71 19 104/61 94 Nasal Cannula 2.0 12/18/16 20:00 71 12/18/16 18:06 78 155/76 12/18/16 16:00 97.0 79 20 108/70 92 Nasal Cannula 4.0 12/18/16 16:00 4.0 12/18/16 16:00 77 12/18/16 12:00 96.8 76 18 98/74 93 Nasal Cannula 4.0 12/18/16 12:00 76 12/18/16 12:00 4.0 12/18/16 11:39 80 18 97 Nasal Cannula 2.0 28 12/18/16 11:38 28 12/18/16 11:37 80 18 97 Nasal Cannula 2.0 28 12/18/16 11:36 80 18 Nasal Cannula 4.0 36 12/18/16 11:36 97 Nasal Cannula 4.0 36 Intake and Output 12/18/16 12/19/16 19:00 07:00 Intake Total 1650 ml 600 ml Output Total 325 ml Balance 1325 ml 600 ml Intake Oral 1300 ml IV Total 350 ml 600 ml Output Urine Total 325 ml Laboratory Tests 12/18/16 11:49: Urine Color Cynthia, Urine Appearance Slightly cloudy, Urine pH 5, Urine Specific [place] 1.020, Urine Protein 2+H, Urine Glucose (UA) Negative, Urine Ketones Negative, Urine Occult Blood Negative, Urine Nitrite Negative, Urine Bilirubin 1 +H, Urine Ictotest Negative, Urine Urobilinogen 4H, Urine Leukocyte Esterase 1+H , Urine RBC 0-2, Urine WBC 2-4, Urine Squamous Epithelial Cells Few, Urine Bacteria ModerateH, Urine Random Sodium < 10, Urine Opiates Screen PositiveH, Urine Barbiturates Screen Negative, Phencyclidine (PCP) Screen Negative, Urine Amphetamines Screen Negative, Urine Benzodiazepines Screen Negative, Urine Cocaine Screen Negative, Urine Marijuana (THC) Screen Negative 12/19/16 06:15: Urine Eosinophils None seen 12/19/16 06:33: White Blood Count 12.1H, Red Blood Count 7.21H, Hemoglobin 14.8, Hematocrit 51.3H, Mean Corpuscular Volume 71L, Mean Corpuscular Hemoglobin 20.5L, Mean Corpuscular Hemoglobin Concent 28.9L, Red Cell Distribution Width 21.6H, Platelet Count 157, Mean Platelet Volume 7.2, Neutrophils (%) (Auto) , Lymphocytes (%) (Auto) , Monocytes (%) (Auto) , Eosinophils (%) (Auto) , Basophils (%) (Auto) , Differential Total Cells Counted 100, Neutrophils % ( Manual) 47, Lymphocytes % (Manual) 42, Monocytes % (Manual) 9, Eosinophils % ( Manual) 0, Basophils % (Manual) 2, Band Neutrophils 0, Nucleated Red Blood Cells 8, Platelet Estimate Adequate, Platelet Morphology [Pending], Clumped Platelets 2+, Anisocytosis 3+, Microcytosis 2+, Erythrocyte Sedimentation Rate 5 , Sodium Level 137, Potassium Level 4.5, Chloride Level 91L, Carbon Dioxide Level 32H, Anion Gap 14, Blood Urea Nitrogen 56H, Creatinine 1.8H, Estimat Glomerular Filtration Rate 36.7, Glucose Level 149H, Hemoglobin A1c 7.1H, Uric Acid 15.4H, Calcium Level 9.4, Phosphorus Level 4.6, Magnesium Level 2.4, Total Bilirubin 1.4H, Direct Bilirubin 0.4H, Gamma Glutamyl Transpeptidase 29, Aspartate Amino Transf (AST/SGOT) 48H, Alanine Aminotransferase (ALT/SGPT) 54H, Alkaline Phosphatase 83, Total Creatine Kinase 34, Troponin I 0.54*H, C- Reactive Protein, Quantitative 3.5H, Pro-B-Type Natriuretic Peptide 3419H, Total Protein 7.4, Albumin 3.5, Globulin 3.9, Albumin/Globulin Ratio 0.8L Height (Feet): 5 Height (Inches): 3.00 Weight (Pounds): 188 General Appearance: no apparent distress Cardiovascular: normal rate Respiratory/Chest: decreased breath sounds Objective PE not changes GAUTAM PENA December 19, 2016 10:35
[2016-12-19 12:00] VITALS: BP 105/66
[2016-12-19] MEDS: Morphine Sulfate 2mg/ml Inj IVP PRN ×2 (14:20→22:18)
--- NOTE | 2016-12-19 14:43 | Cardiology Progress Note ---
Assessment/Plan Problem List: (1) NSTEMI (non-ST elevated myocardial infarction) (2) Edema, peripheral Status: stable, progressing Status Narrative Mrs. Bennett has hx of htn, dm and obesity. She had atypical CP on adm, but mild elevation of troponin levels. EKG does not show any acute ST changes, but there are q waves v1-v2 suggesting old septal infarct. ECHO was technically difficult, but abnl septal motion reported. Assessment/Plan Continue asa, b diana and start statin. Stress nuclear testing to r/o ischemia - can be done as outpt. Subjective ROS Limited/Unobtainable: No Subjective Mrs. Bennett denies chest pain or dyspnea Objective Last 24 Hour Vital Signs Date Time Temp Pulse Resp B/P Pulse Ox O2 Delivery O2 Flow Rate FiO2 12/19/16 12:00 97.0 74 18 105/66 95 Room Air 12/19/16 12:00 73 12/19/16 08:58 71 114/76 12/19/16 08:00 67 12/19/16 08:00 96.6 71 18 114/76 Nasal Cannula 2.0 98 12/19/16 04:01 98.6 76 19 106/63 95 Nasal Cannula 2.0 12/19/16 04:00 76 12/19/16 00:16 4.0 12/19/16 00:14 98.4 73 18 104/59 99 Nasal Cannula 2.0 12/19/16 00:00 74 12/18/16 20:00 97.3 71 19 104/61 94 Nasal Cannula 2.0 12/18/16 20:00 71 12/18/16 18:06 78 155/76 12/18/16 16:00 97.0 79 20 108/70 92 Nasal Cannula 4.0 12/18/16 16:00 4.0 12/18/16 16:00 77 General Appearance: WD/WN, no apparent distress, alert, obese EENT: PERRL/EOMI Neck: supple, no JVD Rhythm: NSR Cardiovascular: normal rate, regular rhythm, systolic murmur, other - ii v/i EFREN at LUSB Respiratory/Chest: lungs clear Abdomen: non tender, soft Extremities: no swelling Intake and Output 12/18/16 12/19/16 19:00 07:00 Intake Total 1650 ml 600 ml Output Total 325 ml Balance 1325 ml 600 ml Intake Oral 1300 ml IV Total 350 ml 600 ml Output Urine Total 325 ml Laboratory Tests Test 12/19/16 06:15 12/19/16 06:33 Urine Eosinophils None seen White Blood Count 12.1 K/UL (4.8-10.8) H Red Blood Count 7.21 M/UL (4.20-5.40) H Hemoglobin 14.8 G/DL (12.0-16.0) Hematocrit 51.3 % (37.0-47.0) H Mean Corpuscular Volume 71 FL (80-99) L Mean Corpuscular Hemoglobin 20.5 PG (27.0-31.0) L Mean Corpuscular Hemoglobin Concent 28.9 G/DL (32.0-36.0) L Red Cell Distribution Width 21.6 % (11.6-14.8) H Platelet Count 157 K/UL (150-450) Mean Platelet Volume 7.2 FL (6.5-10.1) Neutrophils (%) (Auto) % (45.0-75.0) Lymphocytes (%) (Auto) % (20.0-45.0) Monocytes (%) (Auto) % (1.0-10.0) Eosinophils (%) (Auto) % (0.0-3.0) Basophils (%) (Auto) % (0.0-2.0) Differential Total Cells Counted 100 Neutrophils % (Manual) 47 % (45-75) Lymphocytes % (Manual) 42 % (20-45) Monocytes % (Manual) 9 % (1-10) Eosinophils % (Manual) 0 % (0-3) Basophils % (Manual) 2 % (0-2) Band Neutrophils 0 % (0-8) Nucleated Red Blood Cells 8 /100 WBC Platelet Estimate Adequate Platelet Morphology Normal Clumped Platelets 2+ Anisocytosis 3+ Microcytosis 2+ Erythrocyte Sedimentation Rate 5 MM/HR (0-20) Sodium Level 137 mEQ/L (135-145) Potassium Level 4.5 mEQ/L (3.4-4.9) Chloride Level 91 mEQ/L (98-107) L Carbon Dioxide Level 32 mEQ/L (20-30) H Anion Gap 14 (5-15) Blood Urea Nitrogen 56 mg/dL (7-23) H Creatinine 1.8 mg/dL (0.5-0.9) H Estimat Glomerular Filtration Rate 36.7 mL/min (>60) Glucose Level 149 mg/dL (74-106) H Hemoglobin A1c 7.1 % (< 6.0) H Uric Acid 15.4 mg/dL (3.0-7.5) H Calcium Level 9.4 mg/dL (8.6-10.2) Phosphorus Level 4.6 mg/dL (2.5-4.8) Magnesium Level 2.4 mg/dL (1.7-2.5) Total Bilirubin 1.4 mg/dL (0.0-1.2) H Direct Bilirubin 0.4 mg/dL (0.1-0.3) H Gamma Glutamyl Transpeptidase 29 U/L (5-36) Aspartate Amino Transf (AST/SGOT) 48 U/L (5-40) H Alanine Aminotransferase (ALT/SGPT) 54 U/L (3-33) H Alkaline Phosphatase 83 U/L (35-104) Total Creatine Kinase 34 U/L (26-140) Troponin I 0.54 ng/mL (<=0.30) *H C-Reactive Protein, Quantitative 3.5 mg/dL (< 0.5) H Pro-B-Type Natriuretic Peptide 3419 pg/mL (0-125) H Total Protein 7.4 g/dL (6.6-8.7) Albumin 3.5 g/dL (3.5-5.2) Globulin 3.9 g/dL Albumin/Globulin Ratio 0.8 (1.0-2.7) L Microbiology Date/Time Source Procedure Growth Status 12/18/16 11:49 Urine,Clean Catch Urine Culture - Preliminary Mixed Urogenital Contaminants Resulted CARLOS THEODORE December 19, 2016 14:43
[2016-12-19 16:00] VITALS: BP 112/57
[2016-12-19 20:07] VITALS: BP 129/72
[2016-12-20 00:23] VITALS: BP 133/72
[2016-12-20 04:09] VITALS: BP 97/63
[2016-12-20] MEDS: Heparin 5000 units/ml inj SUBQ SCH ×2 (05:30→13:57)
[2016-12-20] MEDS: NovoLOG Insulin Flexpen SUBQ SCH ×2 (06:13→11:28)
[2016-12-20 08:00] VITALS: BP 106/69
[2016-12-20] MEDS: Aspirin Baby 81mg ORAL SCH (08:19)
[2016-12-20] MEDS: Atenolol 25mg tab ORAL SCH (08:19)
[2016-12-20 08:26] LABS: BASOPHILS % (AUTO) 1.5 % (0.0-2.0); EOSINOPHILS % (AUTO) 0.1 % (0.0-3.0); MEAN CORPUSCULAR HEMOGLOBIN 20.7 PG (27.0-31.0); MEAN CORPUSCULAR HGB CONC 29.2 G/DL (32.0-36.0); MEAN CORPUSCULAR VOLUME 71 FL (80-99); MEAN PLATELET VOLUME 7.9 FL (6.5-10.1); MONOCYTES % (AUTO) 10.5 % (1.0-10.0); NEUTROPHILS % (AUTO) 37.9 % (45.0-75.0); PLATELET COUNT 199 K/UL (150-450); RED BLOOD COUNT 6.97 M/UL (4.20-5.40); RED CELL DISTRIBUTION WIDTH 21.4 % (11.6-14.8); WHITE BLOOD COUNT 9.9 K/UL (4.8-10.8)
[2016-12-20 09:15] LABS: ALBUMIN/GLOBULIN RATIO 0.9 (1.0-2.7); CALCIUM 9.2 mg/dL (8.6-10.2); CREATININE 1.4 mg/dL (0.5-0.9); CRP QUANT 2.4 mg/dL (< 0.5); GLOMERULAR FILTRATION RATE 49.1 mL/min (>60); MAGNESIUM 2.3 mg/dL (1.7-2.5); PHOSPHORUS 3.9 mg/dL (2.5-4.8); POTASSIUM 4.4 mEQ/L (3.4-4.9); TOTAL PROTEIN 7.2 g/dL (6.6-8.7)
[2016-12-20 09:35] LABS: ERYTHROCYTE SEDIMENTATION RATE 7 MM/HR (0-20)
[2016-12-20 12:00] VITALS: BP 139/54
--- NOTE | 2016-12-20 14:21 | General Progress Note ---
Assessment/Plan Status: unchanged Assessment/Plan Acute on chronic renal failure- likely due to DM and HTN 1) ACS (acute coronary syndrome) (2) CHF (congestive heart failure) (3) NSTEMI (non-ST elevated myocardial infarction) (4) Pulmonary HTN and Asthma (5) Obesity (6) HyperUrecemia Plan; add allopurinol- Optimize cardiac and pulmonary status- Avoid Nephrotoxics- Keep BP and BS under control- Urine studies- monitor renal parameters Subjective ROS Limited/Unobtainable: No Constitutional: Reports: malaise, weakness Allergies: Coded Allergies: No Known Allergies (Unverified , 07/11/13) Objective Last 24 Hour Vital Signs Date Time Temp Pulse Resp B/P Pulse Ox O2 Delivery O2 Flow Rate FiO2 12/20/16 12:00 68 12/20/16 12:00 97.4 65 18 139/54 95 Room Air 12/20/16 08:19 69 106/69 12/20/16 08:00 97.0 69 18 106/69 Nasal Cannula 2.0 96 12/20/16 08:00 97.0 69 18 106/69 96 Nasal Cannula 2.0 12/20/16 08:00 68 12/20/16 06:35 96 Nasal Cannula 3.0 12/20/16 06:35 Nasal Cannula 3.0 12/20/16 06:35 65 18 Nasal Cannula 3.0 12/20/16 04:09 97.0 68 20 97/63 100 Nasal Cannula 2.0 12/20/16 04:00 71 12/20/16 00:23 97.5 76 20 133/72 96 Nasal Cannula 2.0 12/20/16 00:00 70 12/19/16 22:48 97.2 12/19/16 20:07 97.2 72 20 129/72 100 Room Air 12/19/16 20:00 69 12/19/16 19:13 Nasal Cannula 3.0 32 12/19/16 19:12 97 Nasal Cannula 3.0 32 12/19/16 19:12 71 18 Nasal Cannula 3.0 28 12/19/16 18:05 66 112/57 12/19/16 16:00 66 12/19/16 16:00 97.4 66 18 112/57 Nasal Cannula 2.0 98 Intake and Output 12/19/16 12/20/16 19:00 07:00 Intake Total 250.83 ml 1065 ml Balance 250.83 ml 1065 ml Intake Oral 240 ml IV Total 250.83 ml 825 ml Laboratory Tests 12/20/16 06:00: Urine Eosinophils None seen 12/20/16 07:00: White Blood Count 9.9, Red Blood Count 6.97H, Hemoglobin 14.5, Hematocrit 49.5H , Mean Corpuscular Volume 71L, Mean Corpuscular Hemoglobin 20.7L, Mean Corpuscular Hemoglobin Concent 29.2L, Red Cell Distribution Width 21.4H, Platelet Count 199, Mean Platelet Volume 7.9, Neutrophils (%) (Auto) 37.9L, Lymphocytes (%) (Auto) 50.0H, Monocytes (%) (Auto) 10.5H, Eosinophils (%) (Auto ) 0.1, Basophils (%) (Auto) 1.5, Erythrocyte Sedimentation Rate 7, Sodium Level 139, Potassium Level 4.4, Chloride Level 95L, Carbon Dioxide Level 29, Anion Gap 15, Blood Urea Nitrogen 57H, Creatinine 1.4H, Estimat Glomerular Filtration Rate 49.1, Glucose Level 151H, Calcium Level 9.2, Phosphorus Level 3.9, Magnesium Level 2.3, Total Bilirubin 1.0, Aspartate Amino Transf (AST/SGOT) 37, Alanine Aminotransferase (ALT/SGPT) 54H, Alkaline Phosphatase 87, C-Reactive Protein, Quantitative 2.4H, Total Protein 7.2, Albumin 3.5, Globulin 3.7, Albumin/Globulin Ratio 0.9L Height (Feet): 5 Height (Inches): 3.00 Weight (Pounds): 188 General Appearance: no apparent distress Cardiovascular: normal rate Respiratory/Chest: decreased breath sounds Abdomen: soft, other - obese Objective PE not changes GAUTAM PENA December 20, 2016 14:21
--- NOTE | 2016-12-20 14:37 | Cardiology Progress Note ---
Assessment/Plan Problem List: (1) NSTEMI (non-ST elevated myocardial infarction) (2) Edema, peripheral Status: stable, progressing Status Narrative Mrs. Bennett has hx of htn, dm and obesity. She had atypical CP on adm, but mild elevation of troponin levels. EKG does not show any acute ST changes, but there are q waves v1-v2 suggesting old septal infarct. ECHO was technically difficult, but abnl septal motion reported. Assessment/Plan Continue asa, b diana and statin. Stress nuclear testing to r/o ischemia -to be done as outpt Subjective ROS Limited/Unobtainable: No Subjective No c/o CP , dizziness, dyspnea Objective Last 24 Hour Vital Signs Date Time Temp Pulse Resp B/P Pulse Ox O2 Delivery O2 Flow Rate FiO2 12/20/16 12:00 68 12/20/16 12:00 97.4 65 18 139/54 95 Room Air 12/20/16 08:19 69 106/69 12/20/16 08:00 97.0 69 18 106/69 Nasal Cannula 2.0 96 12/20/16 08:00 97.0 69 18 106/69 96 Nasal Cannula 2.0 12/20/16 08:00 68 12/20/16 06:35 96 Nasal Cannula 3.0 12/20/16 06:35 Nasal Cannula 3.0 12/20/16 06:35 65 18 Nasal Cannula 3.0 12/20/16 04:09 97.0 68 20 97/63 100 Nasal Cannula 2.0 12/20/16 04:00 71 12/20/16 00:23 97.5 76 20 133/72 96 Nasal Cannula 2.0 12/20/16 00:00 70 12/19/16 22:48 97.2 12/19/16 20:07 97.2 72 20 129/72 100 Room Air 12/19/16 20:00 69 12/19/16 19:13 Nasal Cannula 3.0 32 12/19/16 19:12 97 Nasal Cannula 3.0 32 12/19/16 19:12 71 18 Nasal Cannula 3.0 28 12/19/16 18:05 66 112/57 12/19/16 16:00 66 12/19/16 16:00 97.4 66 18 112/57 Nasal Cannula 2.0 98 General Appearance: WD/WN, no apparent distress, obese EENT: PERRL/EOMI Neck: supple, no JVD Rhythm: NSR Cardiovascular: normal rate, regular rhythm, systolic murmur - i/vi EFREN along LSB Respiratory/Chest: lungs clear Abdomen: non tender, soft, other - exam limited by obesity Extremities: no swelling - 1+ pedal/ankle edema bilat, trace edema Intake and Output 12/19/16 12/20/16 19:00 07:00 Intake Total 250.83 ml 1065 ml Balance 250.83 ml 1065 ml Intake Oral 240 ml IV Total 250.83 ml 825 ml Laboratory Tests Test 12/20/16 06:00 12/20/16 07:00 Urine Eosinophils None seen White Blood Count 9.9 K/UL (4.8-10.8) Red Blood Count 6.97 M/UL (4.20-5.40) H Hemoglobin 14.5 G/DL (12.0-16.0) Hematocrit 49.5 % (37.0-47.0) H Mean Corpuscular Volume 71 FL (80-99) L Mean Corpuscular Hemoglobin 20.7 PG (27.0-31.0) L Mean Corpuscular Hemoglobin Concent 29.2 G/DL (32.0-36.0) L Red Cell Distribution Width 21.4 % (11.6-14.8) H Platelet Count 199 K/UL (150-450) Mean Platelet Volume 7.9 FL (6.5-10.1) Neutrophils (%) (Auto) 37.9 % (45.0-75.0) L Lymphocytes (%) (Auto) 50.0 % (20.0-45.0) H Monocytes (%) (Auto) 10.5 % (1.0-10.0) H Eosinophils (%) (Auto) 0.1 % (0.0-3.0) Basophils (%) (Auto) 1.5 % (0.0-2.0) Erythrocyte Sedimentation Rate 7 MM/HR (0-20) Sodium Level 139 mEQ/L (135-145) Potassium Level 4.4 mEQ/L (3.4-4.9) Chloride Level 95 mEQ/L (98-107) L Carbon Dioxide Level 29 mEQ/L (20-30) Anion Gap 15 (5-15) Blood Urea Nitrogen 57 mg/dL (7-23) H Creatinine 1.4 mg/dL (0.5-0.9) H Estimat Glomerular Filtration Rate 49.1 mL/min (>60) Glucose Level 151 mg/dL (74-106) H Calcium Level 9.2 mg/dL (8.6-10.2) Phosphorus Level 3.9 mg/dL (2.5-4.8) Magnesium Level 2.3 mg/dL (1.7-2.5) Total Bilirubin 1.0 mg/dL (0.0-1.2) Aspartate Amino Transf (AST/SGOT) 37 U/L (5-40) Alanine Aminotransferase (ALT/SGPT) 54 U/L (3-33) H Alkaline Phosphatase 87 U/L (35-104) C-Reactive Protein, Quantitative 2.4 mg/dL (< 0.5) H Total Protein 7.2 g/dL (6.6-8.7) Albumin 3.5 g/dL (3.5-5.2) Globulin 3.7 g/dL Albumin/Globulin Ratio 0.9 (1.0-2.7) L Microbiology Date/Time Source Procedure Growth Status 12/18/16 11:49 Urine,Clean Catch Urine Culture - Final Mixed Urogenital Contaminants Complete CARLOS THEODORE December 20, 2016 14:37
[2016-12-20] MEDS ORDERED: LIPITOR10 MG ORAL (14:43)
[2016-12-20] MEDS ORDERED: ATENOLOL25 MG ORAL (14:43)
--- NOTE | 2016-12-20 14:46 | Pulmonology Progress Note ---
Assessment/Plan Problems: (1) ACS (acute coronary syndrome) (2) CHF (congestive heart failure) (3) NSTEMI (non-ST elevated myocardial infarction) (4) ATN (acute tubular necrosis) Assessment/Plan asymptomatic melanie hartman pt wants to go home and have stress testing by her primary. She doesn't want to wait the long weekend. Subjective ROS Limited/Unobtainable: No Interval Events: comfortable Allergies: Coded Allergies: No Known Allergies (Unverified , 07/11/13) Objective Last 24 Hour Vital Signs Date Time Temp Pulse Resp B/P Pulse Ox O2 Delivery O2 Flow Rate FiO2 12/20/16 12:00 68 12/20/16 12:00 97.4 65 18 139/54 95 Room Air 12/20/16 08:19 69 106/69 12/20/16 08:00 97.0 69 18 106/69 Nasal Cannula 2.0 96 12/20/16 08:00 97.0 69 18 106/69 96 Nasal Cannula 2.0 12/20/16 08:00 68 12/20/16 06:35 96 Nasal Cannula 3.0 12/20/16 06:35 Nasal Cannula 3.0 12/20/16 06:35 65 18 Nasal Cannula 3.0 12/20/16 04:09 97.0 68 20 97/63 100 Nasal Cannula 2.0 12/20/16 04:00 71 12/20/16 00:23 97.5 76 20 133/72 96 Nasal Cannula 2.0 12/20/16 00:00 70 12/19/16 22:48 97.2 12/19/16 20:07 97.2 72 20 129/72 100 Room Air 12/19/16 20:00 69 12/19/16 19:13 Nasal Cannula 3.0 32 12/19/16 19:12 97 Nasal Cannula 3.0 32 12/19/16 19:12 71 18 Nasal Cannula 3.0 28 12/19/16 18:05 66 112/57 12/19/16 16:00 66 12/19/16 16:00 97.4 66 18 112/57 Nasal Cannula 2.0 98 Intake and Output 12/19/16 12/20/16 19:00 07:00 Intake Total 250.83 ml 1065 ml Balance 250.83 ml 1065 ml Intake Oral 240 ml IV Total 250.83 ml 825 ml General Appearance: WD/WN HEENT: normocephalic, atraumatic Respiratory/Chest: chest wall non-tender, lungs clear Cardiovascular: normal peripheral pulses, normal rate Abdomen: normal bowel sounds, soft, non tender, no mass Genitourinary: normal external genitalia Extremities: no clubbing Microbiology Date/Time Source Procedure Growth Status 12/18/16 11:49 Urine,Clean Catch Urine Culture - Final Mixed Urogenital Contaminants Complete Laboratory Tests 12/20/16 06:00: Urine Eosinophils None seen 12/20/16 07:00: White Blood Count 9.9, Red Blood Count 6.97H, Hemoglobin 14.5, Hematocrit 49.5H , Mean Corpuscular Volume 71L, Mean Corpuscular Hemoglobin 20.7L, Mean Corpuscular Hemoglobin Concent 29.2L, Red Cell Distribution Width 21.4H, Platelet Count 199, Mean Platelet Volume 7.9, Neutrophils (%) (Auto) 37.9L, Lymphocytes (%) (Auto) 50.0H, Monocytes (%) (Auto) 10.5H, Eosinophils (%) (Auto ) 0.1, Basophils (%) (Auto) 1.5, Erythrocyte Sedimentation Rate 7, Sodium Level 139, Potassium Level 4.4, Chloride Level 95L, Carbon Dioxide Level 29, Anion Gap 15, Blood Urea Nitrogen 57H, Creatinine 1.4H, Estimat Glomerular Filtration Rate 49.1, Glucose Level 151H, Calcium Level 9.2, Phosphorus Level 3.9, Magnesium Level 2.3, Total Bilirubin 1.0, Aspartate Amino Transf (AST/SGOT) 37, Alanine Aminotransferase (ALT/SGPT) 54H, Alkaline Phosphatase 87, C-Reactive Protein, Quantitative 2.4H, Total Protein 7.2, Albumin 3.5, Globulin 3.7, Albumin/Globulin Ratio 0.9L Current Medications Medications (Trade) Dose Ordered Sig/Kiera Route PRN Reason Start Time Stop Time Status Last Admin Dose Admin Acetaminophen (Tylenol) 650 mg Q4H PRN ORAL FEVER 12/18/16 21:00 01/17/17 20:59 Albuterol/ Ipratropium (DuoNeb 0.5-3(2.5)mg/3ml) 3 ml Q4H PRN HHN Shortness of Breath 12/18/16 21:00 12/23/16 20:59 Allopurinol 300 mg 300 mg DAILY ORAL 12/19/16 10:45 01/18/17 10:44 12/20/16 08:19 Aspirin (ASA) 162 mg DAILY ORAL 12/19/16 09:00 01/18/17 08:59 12/20/16 08:19 Atenolol (Tenormin) 12.5 mg BID ORAL 12/19/16 09:00 01/18/17 08:59 12/19/16 18:05 Atorvastatin Calcium (Lipitor) 10 mg BEDTIME ORAL 12/20/16 21:00 01/19/17 20:59 Dextrose (Dextrose 50%) STAT PRN IV Hypoglycemia 12/18/16 21:00 01/17/17 20:59 Heparin Sodium (Porcine) (Heparin 5000 units/ml) 5,000 units EVERY 8 HOURS SUBQ 12/18/16 22:00 01/17/17 21:59 12/20/16 13:57 Insulin Aspart (NovoLOG) BEFORE MEALS AND HS SUBQ 12/18/16 21:00 01/17/17 20:59 12/20/16 11:28 Morphine Sulfate (Morphine Sulfate) 2 mg Q4H PRN IVP Severe Pain (Pain Scale 7-10) 12/18/16 21:00 12/25/16 20:59 12/19/16 22:18 Nitroglycerin (Ntg) 0.4 mg Q5MIN PRN SL Prn Chest Pain 12/18/16 20:15 01/17/17 20:14 Ondansetron HCl (Zofran) 4 mg Q6H PRN IVP Nausea & Vomiting 12/18/16 21:00 01/17/17 20:59 Polyethylene Glycol (Miralax) 17 gm DAILYPRN PRN ORAL Constipation 12/18/16 21:00 01/17/17 20:59 Sodium Chloride (Sodium Chloride 1000ml bag) 1,000 ml @ 75 mls/hr [id number] IV 12/19/16 17:30 01/18/17 17:29 12/20/16 05:26 Temazepam (Restoril) 15 mg HSPRN PRN ORAL Insomnia 12/18/16 21:00 12/25/16 20:59 AFRICA SINGH December 20, 2016 14:46
[2016-12-20] MEDS ORDERED: ASPIRIN81 MG ORAL (15:05)
[2016-12-20] MEDS ORDERED: ALLOPURINOL300 M1 ORAL (15:07)
[2016-12-20 16:00] VITALS: BP 140/86
== END 2016-12-20 16:15 | disposition home or self-care (01) | DRG 190 ==
LOC: EMR 10:56 → 2W 12:14 → EDBEDREQ 13:58 → 2W 14:21 → 2E 12-18 19:43
PROC: 5A09357 Assistance with Respiratory Ventilation, Less than 24 Consecutive Hours, Continuous Positive Airway Pressure (ICD-10-PCS; principal; 2016-12-17)
DX: I21.4 Non-ST elevation (NSTEMI) myocardial infarction (principal); N17.0 Acute kidney failure with tubular necrosis; E87.2 Acidosis; F17.200 Nicotine dependence, unspecified, uncomplicated; F10.21 Alcohol dependence, in remission; I27.2 Other secondary pulmonary hypertension; M10.9 Gout, unspecified; I12.9 Hypertensive chronic kidney disease with stage 1 through stage 4 chronic kidney disease, or unspecified chronic kidney disease; E11.22 Type 2 diabetes mellitus with diabetic chronic kidney disease; N18.9 Chronic kidney disease, unspecified; I50.9 Heart failure, unspecified; E66.9 Obesity, unspecified
CPT/HCPCS: 36415; 36600; 71010; 78579; 78580; 80053; 80061; 80300; 81001; 82248; 82550; 82553; 82803; 82962; 82977; 83036; 83735; 83880; 84100; 84300; 84443; 84484; 84550; 85007; 85025; 85610; 85651; 85730; 86140; 87086; 89050; 93005; 93306; 93970; 94640; 94664; 94760; A9503; J1815; J7620

== ENCOUNTER 2017-05-05 15:23 | Inpatient (IN) | payer MEDICAID ==
[~2017-05-05] VITALS: Ht 162.6 cm; Wt 128.4 kg
[~2017-05-05 15:23] MED LIST changes: +ALLOPURINOL300 M1 ORAL; +ASPIRIN81 MG ORAL; +ATENOLOL25 MG ORAL; +INDOMETHACIN75 MG ORAL; +LIPITOR10 MG ORAL; +POTASSIUM CHLO20 ME2 ORAL
[2017-05-05] MEDS ORDERED: Albuterol ud Inhalation ONE (15:51)
[2017-05-05] MEDS ORDERED: Ipratropium 0.02% Inh Soln 2.5ml UD ONE (15:51)
[2017-05-05] MEDS ORDERED: Ampicillin/Sulbactam Sod 3 GM in NS 110 ML IV SCH (16:00)
[2017-05-05] MEDS ORDERED: Solu-MEDROL 125mg Inj IVP ONE (16:00)
[2017-05-05] MEDS ORDERED: Albuterol/Ipratropium 3ml neb HHN ONE (16:00)
[2017-05-05] MEDS ORDERED: Unasyn 3gm Inj ONE (16:30)
[2017-05-05] MEDS ORDERED: Acetaminophen 500mg (ES) tab ORAL ONE (16:45)
--- NOTE | 2017-05-05 16:50 | Diagnostic Imaging Report ---
Indication: SOB Technique: One view of the chest Comparison: 12/16/2016 Findings: The heart is enlarged. There are equivocal minimal interstitial congestive changes. No focal airspace consolidation. No effusions Impression: Cardiomegaly. Equivocal minimal interstitial congestion-correlate with clinical findings
[2017-05-05 16:51] LABS: BASOPHILS % (AUTO) 2.1 % (0.0-2.0); EOSINOPHILS % (AUTO) 0.2 % (0.0-3.0); MEAN CORPUSCULAR HEMOGLOBIN 20.3 PG (27.0-31.0); MEAN CORPUSCULAR HGB CONC 26.3 G/DL (32.0-36.0); MEAN CORPUSCULAR VOLUME 77 FL (80-99); MEAN PLATELET VOLUME 10.6 FL (6.5-10.1); MONOCYTES % (AUTO) 13.3 % (1.0-10.0); NEUTROPHILS % (AUTO) 50.5 % (45.0-75.0); PLATELET COUNT 102 K/UL (150-450); RED CELL DISTRIBUTION WIDTH 21.8 % (11.6-14.8)
[2017-05-05 16:56] LABS: INR 1.1 (0.9-1.1); PROTHROMBIN TIME 11.9 SEC (9.30-11.50)
[2017-05-05 17:07] VITALS: BP 137/80
[2017-05-05 17:38] LABS: ALANINE AMINOTRANSFERASE 17 U/L (12-78); ALBUMIN/GLOBULIN RATIO 0.7 (1.0-2.7); ANION GAP 3 (5-15); ASPARTATE AMINO TRANSFERASE 20 U/L (15-37); CARBON DIOXIDE 34 MMOL/L (21-32); CHLORIDE 99 MMOL/L (98-107); CKMB 1.1 NG/ML (0.0-3.6); GLOMERULAR FILTRATION RATE > 60 mL/min (>60); LIPASE 61 U/L (73-393); POTASSIUM 4.1 MMOL/L (3.5-5.1); SODIUM 136 MMOL/L (136-145); TOTAL PROTEIN 7.8 G/DL (6.4-8.2)
[2017-05-05 17:40] LABS: ABG ALLEN TEST POSITIVE; ABG BASE EXCESS 5.2; ABG PCO2 71.5 mmHg (35.0-45.0)
[2017-05-05] MEDS ORDERED: LISINOPRIL10 MG ORAL (17:47)
[2017-05-05 17:49] VITALS: BP 116/56
--- NOTE | 2017-05-05 17:53 | Emergency Room Report ---
History of Present Illness General Chief Complaint: Flu Like Symptoms Source: Patient Present Illness HPI Patient is a 47 yo female who presented for increased shortness of breath. Patient reports gradual shortness of breath. Patient reports decreased medications. Patient had not been vomiting, she didn't Had take her medications for several days due to illness. Patient had recent ill sick contacts Allergies: Coded Allergies: No Known Allergies (Unverified , 07/11/13) Patient History Past Medical History: see triage record Reviewed Nursing Documentation: PMH: Agreed, PSxH: Agreed Nursing Documentation-PMH Past Medical History: No History, Except For Hx Cardiac Problems: Yes - CHF Hx Hypertension: Yes - Bronchitis Hx Asthma: Yes Hx Diabetes: Yes - gout Hx Cancer: No Hx Gastrointestinal Problems: No Hx Neurological Problems: No Review of Systems All Other Systems: negative except mentioned in HPI Physical Exam Vital Signs Date Time Temp Pulse Resp B/P (MAP) Pulse Ox O2 Delivery O2 Flow Rate FiO2 05/05/17 15:28 97.9 108 24 137/80 62 Room Air 05/05/17 15:55 4.0 36 Sp02 EP Interpretation: reviewed, normal General Appearance: normal inspection, well appearing, no apparent distress, alert, GCS 15 Head: atraumatic ENT: normal ENT inspection, hearing grossly normal, normal voice Neck: normal inspection, full range of motion, supple, no bony tend Respiratory: normal inspection, no retraction, wheezing Cardiovascular #1: regular rate, rhythm, edema - bilateral Gastrointestinal: normal inspection, normal bowel sounds, non tender, soft, no guarding, no hernia Genitourinary: no CVA tenderness Musculoskeletal: normal inspection, back normal, normal range of motion Neurologic: normal inspection, alert, oriented x3, responsive, clay caster III-XII nml as tested, speech normal Psychiatric: normal inspection, judgement/insight normal, mood/affect normal Skin: normal inspection, normal color, no rash Medical Decision Making Diagnostic Impression: Primary Impression: COPD exacerbation Additional Impressions: Edema, peripheral CO2 retention ER Course Patient presented for shortness of breath.Differential included but was not limited to anemia, pneumonia, pneumothorax, myocardial infarction, pericardial effusion, congestive heart failure, acidosis. Because of complexity of patient' s case laboratory testing and imaging studies were ordered.A chest x-ray one view interpreted by me showed cardiac enlargement without evident infiltrate. There is no evident pneumothorax.Laboratory testing showed normal white blood count.Patient was noted to have normal white blood count. ABG was notable for a CO2 retention. Dr. Buck was contacted for inpatient management due to complexity of medical condition. Labs Test 05/05/17 16:10 05/05/17 17:30 White Blood Count 9.0 K/UL (4.8-10.8) Red Blood Count 6.60 M/UL (4.20-5.40) Hemoglobin 13.4 G/DL (12.0-16.0) Hematocrit 51.0 % (37.0-47.0) Mean Corpuscular Volume 77 FL (80-99) Mean Corpuscular Hemoglobin 20.3 PG (27.0-31.0) Mean Corpuscular Hemoglobin Concent 26.3 G/DL (32.0-36.0) Red Cell Distribution Width 21.8 % (11.6-14.8) Platelet Count 102 K/UL (150-450) Mean Platelet Volume 10.6 FL (6.5-10.1) Neutrophils (%) (Auto) 50.5 % (45.0-75.0) Lymphocytes (%) (Auto) 34.0 % (20.0-45.0) Monocytes (%) (Auto) 13.3 % (1.0-10.0) Eosinophils (%) (Auto) 0.2 % (0.0-3.0) Basophils (%) (Auto) 2.1 % (0.0-2.0) Prothrombin Time 11.9 SEC (9.30-11.50) Prothromb Time International Ratio 1.1 (0.9-1.1) Activated Partial Thromboplast Time 29 SEC (23-33) Sodium Level 136 MMOL/L (136-145) Potassium Level 4.1 MMOL/L (3.5-5.1) Chloride Level 99 MMOL/L (98-107) Carbon Dioxide Level 34 MMOL/L (21-32) Anion Gap 3 (5-15) Blood Urea Nitrogen 14 mg/dL (7-18) Creatinine 1.0 MG/DL (0.55-1.30) Estimat Glomerular Filtration Rate > 60 mL/min (>60) Glucose Level 131 MG/DL (74-106) Lactic Acid Level 1.20 mmol/L (0.66-2.22) Calcium Level 9.0 MG/DL (8.5-10.1) Total Bilirubin 0.9 MG/DL (0.2-1.0) Aspartate Amino Transf (AST/SGOT) 20 U/L (15-37) Alanine Aminotransferase (ALT/SGPT) 17 U/L (12-78) Alkaline Phosphatase 94 U/L (46-116) Total Creatine Kinase 63 U/L (26-308) Creatine Kinase MB 1.1 NG/ML (0.0-3.6) Creatine Kinase MB Relative Index 1.7 Troponin I 0.033 ng/mL (0.000-0.056) Pro-B-Type Natriuretic Peptide 2389 (0-125) Total Protein 7.8 G/DL (6.4-8.2) Albumin 3.1 G/DL (3.4-5.0) Globulin 4.7 g/dL Albumin/Globulin Ratio 0.7 (1.0-2.7) Lipase 61 U/L (73-393) Arterial Blood pH 7.290 (7.350-7.450) Arterial Blood Partial Pressure CO2 71.5 mmHg (35.0-45.0) Arterial Blood Partial Pressure O2 64.0 mmHg (75.0-100.0) Arterial Blood HCO3 34.3 mmol/L (22.0-26.0) Arterial Blood Oxygen Saturation 86.2 % (92.0-98.0) Arterial Blood Base Excess 5.2 Nir Test Positive Last Vital Signs Date Time Temp Pulse Resp B/P (MAP) Pulse Ox O2 Delivery O2 Flow Rate FiO2 05/05/17 17:50 97.9 05/05/17 17:49 94 20 116/56 93 Nasal Cannula 4.0 36 Status: unchanged Disposition: ADMITTED INPATIENT Condition: Serious Referrals: NON PHYSICIAN (PCP) Randy Najera May 05, 2017 17:53
[2017-05-05] MEDS ORDERED: Albuterol/Ipratropium 3ml neb HHN PRN (18:30)
[2017-05-05] MEDS ORDERED: Miralax 17gm pkt ORAL PRN (18:30)
--- NOTE | 2017-05-05 18:30 | History and Physical ---
History of Present Illness General Date patient seen: May 05, 2017 Reason for Hospitalization: Flu Like Symptoms Present Illness HPI 47 yo female with hx of CHF, DREW, morbid obesity presented to [facility] – [place], [place] ER for increased shortness of breath. Patient reports gradual shortness of breath. S he didn't Had take her medications for several days due to illness. Patient had recent ill sick contacts with grand child having flu like symptoms. Allergies: Coded Allergies: No Known Allergies (Unverified , 07/11/13) Medication History Scheduled Allopurinol* (Allopurinol*), 300 MG ORAL DAILY, (Reported) Aspirin* (Aspirin*), 162 MG ORAL DAILY, (Reported) Atenolol* (Tenormin*), 12.5 MG ORAL BID Atorvastatin Calcium* (Lipitor*), 10 MG ORAL BEDTIME Furosemide* (Lasix*), 80 MG ORAL DAILY, (Reported) Hydrochlorothiazide* (Hydrochlorothiazide*), 25 MG ORAL DAILY, (Reported) Indomethacin* (Indomethacin*), 25 MG ORAL TID, (Reported) Lisinopril* (Lisinopril*), 5 MG ORAL DAILY, (Reported) Metformin Hcl* (Metformin Hcl*), 1,000 MG ORAL BID, (Reported) Potassium Chloride (Potassium Chloride), 20 MEQ ORAL DAILY, (Reported) Patient History Healthcare decision maker Resuscitation status Advanced Directive on File Past Medical/Surgical History Past Medical/Surgical History: (1) DREW (obstructive sleep apnea) (2) Morbid obesity (3) CHF (congestive heart failure) Review of Systems All Other Systems: negative except mentioned in HPI Physical Exam General Appearance: WD/WN, no apparent distress Lines, tubes and drains: peripheral, PICC HEENT: normocephalic, atraumatic Neck: non-tender, supple Respiratory/Chest: chest wall non-tender, lungs clear Breasts: no masses Cardiovascular/Chest: normal peripheral pulses Abdomen: normal bowel sounds Genitourinary/Rectal: normal genital exam Extremities: normal range of motion 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: 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 II-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 grossly normal Lymphatic: anterior cervical Last 24 Hour Vital Signs Date Time Temp Pulse Resp B/P (MAP) Pulse Ox O2 Delivery O2 Flow Rate FiO2 05/05/17 17:59 97.9 94 20 116/56 93 Nasal Cannula 4.0 36 05/05/17 17:50 97.9 05/05/17 17:49 97.9 94 20 116/56 93 Nasal Cannula 4.0 36 05/05/17 17:07 99 26 Nasal Cannula 4.0 36 05/05/17 17:07 97.9 99 20 137/80 100 Nasal Cannula 4.0 36 05/05/17 16:09 105 20 100 Nasal Cannula 4.0 36 05/05/17 15:55 101 20 Nasal Cannula 4.0 36 05/05/17 15:55 101 20 94 Nasal Cannula 4.0 36 05/05/17 15:28 97.9 108 24 137/80 62 Room Air Intake and Output 05/05/17 05/06/17 19:00 07:00 Intake Total 120 ml Balance 120 ml Intake Oral 120 ml Laboratory Tests Test 05/05/17 16:10 05/05/17 17:30 White Blood Count 9.0 K/UL (4.8-10.8) Red Blood Count 6.60 M/UL (4.20-5.40) H Hemoglobin 13.4 G/DL (12.0-16.0) Hematocrit 51.0 % (37.0-47.0) H Mean Corpuscular Volume 77 FL (80-99) L Mean Corpuscular Hemoglobin 20.3 PG (27.0-31.0) L Mean Corpuscular Hemoglobin Concent 26.3 G/DL (32.0-36.0) L Red Cell Distribution Width 21.8 % (11.6-14.8) H Platelet Count 102 K/UL (150-450) L Mean Platelet Volume 10.6 FL (6.5-10.1) H Neutrophils (%) (Auto) 50.5 % (45.0-75.0) Lymphocytes (%) (Auto) 34.0 % (20.0-45.0) Monocytes (%) (Auto) 13.3 % (1.0-10.0) H Eosinophils (%) (Auto) 0.2 % (0.0-3.0) Basophils (%) (Auto) 2.1 % (0.0-2.0) H Prothrombin Time 11.9 SEC (9.30-11.50) H Prothromb Time International Ratio 1.1 (0.9-1.1) Activated Partial Thromboplast Time 29 SEC (23-33) Sodium Level 136 MMOL/L (136-145) Potassium Level 4.1 MMOL/L (3.5-5.1) Chloride Level 99 MMOL/L (98-107) Carbon Dioxide Level 34 MMOL/L (21-32) H Anion Gap 3 (5-15) L Blood Urea Nitrogen 14 mg/dL (7-18) Creatinine 1.0 MG/DL (0.55-1.30) Estimat Glomerular Filtration Rate > 60 mL/min (>60) Glucose Level 131 MG/DL (74-106) H Lactic Acid Level 1.20 mmol/L (0.66-2.22) Calcium Level 9.0 MG/DL (8.5-10.1) Total Bilirubin 0.9 MG/DL (0.2-1.0) Aspartate Amino Transf (AST/SGOT) 20 U/L (15-37) Alanine Aminotransferase (ALT/SGPT) 17 U/L (12-78) Alkaline Phosphatase 94 U/L (46-116) Total Creatine Kinase 63 U/L (26-308) Creatine Kinase MB 1.1 NG/ML (0.0-3.6) Creatine Kinase MB Relative Index 1.7 Troponin I 0.033 ng/mL (0.000-0.056) Pro-B-Type Natriuretic Peptide 2389 (0-125) H Total Protein 7.8 G/DL (6.4-8.2) Albumin 3.1 G/DL (3.4-5.0) L Globulin 4.7 g/dL Albumin/Globulin Ratio 0.7 (1.0-2.7) L Lipase 61 U/L (73-393) L Arterial Blood pH 7.290 (7.350-7.450) Arterial Blood Partial Pressure CO2 71.5 mmHg (35.0-45.0) *H Arterial Blood Partial Pressure O2 64.0 mmHg (75.0-100.0) L Arterial Blood HCO3 34.3 mmol/L (22.0-26.0) H Arterial Blood Oxygen Saturation 86.2 % (92.0-98.0) L Arterial Blood Base Excess 5.2 Nir Test Positive Height (Feet): 5 Height (Inches): 4.00 Weight (Pounds): 174 Medications Current Medications Medications (Trade) Dose Ordered Sig/Kiera Route PRN Reason Start Time Stop Time Status Last Admin Dose Admin Ampicillin Sodium/ Sulbactam Sodium 3 gm/Sodium Chloride 110 ml @ 220 mls/hr Q6H IV 05/05/17 16:00 05/06/17 15:59 05/05/17 16:37 Assessment/Plan Problem List: (1) Acute respiratory failure ICD Codes: J96.00 - Acute respiratory failure, unspecified whether with hypoxia or hypercapnia SNOMED: 22801358 (2) Pulmonary edema ICD Codes: J81.1 - Chronic pulmonary edema SNOMED: 32230961 (3) CHF (congestive heart failure) ICD Codes: I50.9 - Heart failure, unspecified SNOMED: 32437441 (4) Diabetes mellitus ICD Codes: E11.9 - Type 2 diabetes mellitus without complications SNOMED: 90539203 (5) DREW (obstructive sleep apnea) ICD Codes: G47.33 - Obstructive sleep apnea (adult) (pediatric) SNOMED: 37526675 Assessment/Plan titrate bipap titrate fio2 chest pt check sputum check bnp and cxr PHILLIP kuhn 2D echo AFRICA SINGH May 05, 2017 18:29
[2017-05-05 18:43] VITALS: BP 106/74
[2017-05-05 20:10] VITALS: BP 134/73
[2017-05-05] MEDS ORDERED: NovoLOG Insulin Flexpen SUBQ SCH (21:00)
[2017-05-05] MEDS ORDERED: Heparin 5000 units/ml inj SUBQ SCH (21:00)
[2017-05-05 22:00] VITALS: BP 149/82
[2017-05-05 23:00] VITALS: BP 149/82
[2017-05-05] MEDS: Ampicillin/Sulbactam Sod 3 GM in NS 110 ML IV SCH (23:40)
[2017-05-06] VITALS (18 sets, daily range): BP systolic 100–147; BP diastolic 47–82
[2017-05-06] MEDS: Albuterol/Ipratropium 3ml neb HHN PRN ×4 (03:12→18:09)
[2017-05-06] MEDS: Ampicillin/Sulbactam Sod 3 GM in NS 110 ML IV SCH ×2 (05:40→12:26)
[2017-05-06] MEDS: NovoLOG Insulin Flexpen SUBQ SCH ×4 (06:04→21:29)
[2017-05-06 07:54] LABS: ANION GAP 4 (5-15); CALCIUM 9.1 MG/DL (8.5-10.1); CARBON DIOXIDE 34 MMOL/L (21-32); CHLORIDE 102 MMOL/L (98-107); GLOMERULAR FILTRATION RATE > 60 mL/min (>60); POTASSIUM 4.6 MMOL/L (3.5-5.1); SODIUM 140 MMOL/L (136-145)
--- NOTE | 2017-05-06 08:25 | Diagnostic Imaging Report ---
APPROVED REPORT CPT Code: 29466 Present Symptoms Lower Extremity Pain: Bilateral Shortness of breath Comments: Prior venous duplex 12/16/2016. Hx CHF, COPD, Diabetes. BILATERAL: Imaging reveals a patent deep venous system bilaterally. There is no evidence of thrombus within the femoral, popliteal or tibial segments. The greater saphenous veins are also within normal limits. Doppler indicates normal spontaneous flow within these segments. The mid to distal superficial femoral and tibial veins were not well visualized bilaterally.
[2017-05-06] MEDS ORDERED: Lisinopril 2.5mg tab ORAL SCH ×2 (09:00)
[2017-05-06] MEDS ORDERED: Heparin 5000 units/ml inj SUBQ SCH (09:00)
--- NOTE | 2017-05-06 11:46 | Diagnostic Imaging Report ---
Indication: DYSPNEA Technique: One view of the chest Comparison: 05/05/2017 Findings: The heart remains enlarged. Equivocal minimal interstitial congestion persists, unchanged. Pleural spaces remain clear. Impression: Unchanged, over one day, findings as above.
--- NOTE | 2017-05-06 13:02 | Pulmonolgy Critical Care Note ---
Critical Care - Asmt/Plan Problems: (1) Acute respiratory failure (2) Pulmonary edema (3) CHF (congestive heart failure) (4) Diabetes mellitus (5) DREW (obstructive sleep apnea) (6) Morbid obesity Respiratory: monitor respiratory rate, ABG Cardiac: stop pressors, continue to monitor HR/BP Renal: keep IV fluid, check electrolytes Infectious Disease: check cultures, continue antibiotics Gastrointestinal: continue feedings/current rate Endocrine: monitor blood sugar, continue sliding scale insulin Hematologic: transfuse if hgb<8.5 Neurologic: PRN Ativan, PRN Morphine, keep patient comfortable Affect: PRN ativan Prophylaxis: Protonix, Heparin Notes Reviewed: certified procedural coder, renal Discussed with: nurses, consultants, hospice case managermanager commission - Objective Last 24 Hour Vital Signs Date Time Temp Pulse Resp B/P (MAP) Pulse Ox O2 Delivery O2 Flow Rate FiO2 05/06/17 11:48 92 20 99 Nasal Cannula 3.0 05/06/17 11:22 93 20 94 Bi-pap 40 05/06/17 11:00 24 106/67 97 Nasal Cannula 3.0 05/06/17 10:00 91 23 114/60 96 Bi-pap 40 05/06/17 09:24 110/56 05/06/17 09:00 92 22 110/55 96 Bi-pap 40 05/06/17 08:00 91 05/06/17 08:00 91 05/06/17 08:00 40 05/06/17 08:00 98.0 91 21 121/74 97 Bi-pap 40 05/06/17 07:43 95 19 95 Bi-pap 40 05/06/17 07:08 90 24 95 Facial 40 05/06/17 07:00 92 22 124/69 96 Bi-pap 40 05/06/17 06:00 92 33 122/61 96 Bi-pap 40 05/06/17 05:22 88 31 96 Facial 40 05/06/17 05:00 97 27 139/82 92 Bi-pap 40 05/06/17 04:06 91 05/06/17 04:00 97.8 91 33 141/71 91 Bi-pap 40 05/06/17 04:00 40 05/06/17 03:26 91 28 98 Bi-pap 40 05/06/17 03:24 88 30 93 Facial 40 05/06/17 03:24 98 20 94 Bi-pap 40 05/06/17 03:00 98 29 139/71 92 Bi-pap 40 05/06/17 02:00 87 30 124/77 94 Bi-pap 40 05/06/17 01:56 88 29 93 Facial 40 05/06/17 01:00 90 28 135/78 97 Bi-pap 40 05/06/17 00:19 89 24 93 Facial 40 05/06/17 00:15 40 05/06/17 00:01 84 05/06/17 00:00 98.7 85 35 121/66 97 Bi-pap 50 05/05/17 23:00 80 23 149/82 98 Bi-pap 50 05/05/17 22:09 84 23 97 Facial 45 05/05/17 22:00 98.4 05/05/17 22:00 98.4 80 23 149/82 98 Bi-pap 50 80 05/05/17 22:00 50 05/05/17 22:00 90 05/05/17 20:10 97.5 93 24 134/73 97 Nasal Cannula 3.0 05/05/17 18:43 98.4 96 20 106/74 92 Nasal Cannula 4.0 05/05/17 17:59 97.9 94 20 116/56 93 Nasal Cannula 4.0 36 05/05/17 17:50 97.9 05/05/17 17:49 97.9 94 20 116/56 93 Nasal Cannula 4.0 36 05/05/17 17:07 99 26 Nasal Cannula 4.0 36 05/05/17 17:07 97.9 99 20 137/80 100 Nasal Cannula 4.0 36 05/05/17 16:09 105 20 100 Nasal Cannula 4.0 36 05/05/17 15:55 101 20 Nasal Cannula 4.0 36 05/05/17 15:55 101 20 94 Nasal Cannula 4.0 36 05/05/17 15:28 97.9 108 24 137/80 62 Room Air Status: awake Condition: critical, grave HEENT: atraumatic Neck: full ROM Lungs: clear Heart: HR/BP stable, HR/BP unstable Abdomen: soft, non-tender, feeding tube Extremities: no C/C/E, edema Accucheck: 203 Critical Care - Subjective ROS Limited/Unobtainable: No ICU Day: 2 Intubation Day: 2 Condition: critical EKG Rhythm: Sinus Tachycardia FI02: 40 Sputum Amount: Small I&O: Intake and Output 05/06/17 05/07/17 19:00 07:00 Intake Total 350 ml Balance 350 ml Intake Oral 350 ml CXR: pulmonary edema Labs: Laboratory Tests Test 05/05/17 16:10 05/05/17 17:30 05/05/17 19:45 05/06/17 05:30 White Blood Count 9.0 K/UL (4.8-10.8) Red Blood Count 6.60 M/UL (4.20-5.40) H Hemoglobin 13.4 G/DL (12.0-16.0) Hematocrit 51.0 % (37.0-47.0) H Mean Corpuscular Volume 77 FL (80-99) L Mean Corpuscular Hemoglobin 20.3 PG (27.0-31.0) L Mean Corpuscular Hemoglobin Concent 26.3 G/DL (32.0-36.0) L Red Cell Distribution Width 21.8 % (11.6-14.8) H Platelet Count 102 K/UL (150-450) L Mean Platelet Volume 10.6 FL (6.5-10.1) H Neutrophils (%) (Auto) 50.5 % (45.0-75.0) Lymphocytes (%) (Auto) 34.0 % (20.0-45.0) Monocytes (%) (Auto) 13.3 % (1.0-10.0) H Eosinophils (%) (Auto) 0.2 % (0.0-3.0) Basophils (%) (Auto) 2.1 % (0.0-2.0) H Prothrombin Time 11.9 SEC (9.30-11.50) H Prothromb Time International Ratio 1.1 (0.9-1.1) Activated Partial Thromboplast Time 29 SEC (23-33) Sodium Level 136 MMOL/L (136-145) 140 MMOL/L (136-145) Potassium Level 4.1 MMOL/L (3.5-5.1) 4.6 MMOL/L (3.5-5.1) Chloride Level 99 MMOL/L (98-107) 102 MMOL/L (98-107) Carbon Dioxide Level 34 MMOL/L (21-32) H 34 MMOL/L (21-32) H Anion Gap 3 (5-15) L 4 (5-15) L Blood Urea Nitrogen 14 mg/dL (7-18) 17 mg/dL (7-18) Creatinine 1.0 MG/DL (0.55-1.30) 1.0 MG/DL (0.55-1.30) Estimat Glomerular Filtration Rate > 60 mL/min (>60) > 60 mL/min (>60) Glucose Level 131 MG/DL (74-106) H 221 MG/DL (74-106) H Lactic Acid Level 1.20 mmol/L (0.66-2.22) Calcium Level 9.0 MG/DL (8.5-10.1) 9.1 MG/DL (8.5-10.1) Total Bilirubin 0.9 MG/DL (0.2-1.0) Aspartate Amino Transf (AST/SGOT) 20 U/L (15-37) Alanine Aminotransferase (ALT/SGPT) 17 U/L (12-78) Alkaline Phosphatase 94 U/L (46-116) Total Creatine Kinase 63 U/L (26-308) Creatine Kinase MB 1.1 NG/ML (0.0-3.6) Creatine Kinase MB Relative Index 1.7 Troponin I 0.033 ng/mL (0.000-0.056) 0.030 ng/mL (0.000-0.056) 0.012 ng/mL (0.000-0.056) Pro-B-Type Natriuretic Peptide 2389 (0-125) H Total Protein 7.8 G/DL (6.4-8.2) Albumin 3.1 G/DL (3.4-5.0) L Globulin 4.7 g/dL Albumin/Globulin Ratio 0.7 (1.0-2.7) L Lipase 61 U/L (73-393) L Arterial Blood pH 7.290 (7.350-7.450) Arterial Blood Partial Pressure CO2 71.5 mmHg (35.0-45.0) *H Arterial Blood Partial Pressure O2 64.0 mmHg (75.0-100.0) L Arterial Blood HCO3 34.3 mmol/L (22.0-26.0) H Arterial Blood Oxygen Saturation 86.2 % (92.0-98.0) L Arterial Blood Base Excess 5.2 Nir Test Positive AFRICA SINGH May 06, 2017 13:02
[2017-05-06] MEDS ORDERED: Miralax 17gm pkt ORAL PRN ×2 (16:00→18:30)
--- NOTE | 2017-05-06 16:31 | Consultation ---
History of Present Illness General Date patient seen: May 06, 2017 Time patient seen: 16:31 Chief Complaint: Flu Like Symptoms Present Illness HPI ID Consult Note 47 y/o F with hx of CHF, DREW, DM2, morbid obesity, COPD presetns to ED on for worsenign SOB. Reports + sick contacts (grandchildren with flu like symptoms) Stop taking her meds for the last several days prior to admission given not feeling well. ON ED found to be hypercapneic with Pco2 71.5 and started on Bipap , now transitioned to 3L NC No fever, no leukocytosis. Started on IV unasyn. +URI symptoms Denies vomiting, JOHNSON, rash, abd pain diarrhea. Allergies: Coded Allergies: No Known Allergies (Unverified , 07/11/13) Medication History Scheduled Allopurinol* (Allopurinol*), 300 MG ORAL DAILY, (Reported) Aspirin* (Aspirin*), 162 MG ORAL DAILY, (Reported) Atenolol* (Tenormin*), 12.5 MG ORAL BID Atorvastatin Calcium* (Lipitor*), 10 MG ORAL BEDTIME Furosemide* (Lasix*), 80 MG ORAL DAILY, (Reported) Hydrochlorothiazide* (Hydrochlorothiazide*), 25 MG ORAL DAILY, (Reported) Indomethacin* (Indomethacin*), 25 MG ORAL TID, (Reported) Lisinopril* (Lisinopril*), 5 MG ORAL DAILY, (Reported) Metformin Hcl* (Metformin Hcl*), 1,000 MG ORAL BID, (Reported) Potassium Chloride (Potassium Chloride), 20 MEQ ORAL DAILY, (Reported) Patient History Healthcare decision maker Resuscitation status Full Code Advanced Directive on File Patient History Narrative PMHx: as above SHx:non contributory FHx: non contributory Review of Systems All Other Systems: negative except mentioned in HPI Physical Exam Physical Exam Narrative General Appearance: normal inspection, well appearing, no apparent distress HEENT: no oral lesions, PERRL Neck: supple Respiratory: normal inspection, no retraction, wheezing, CTA x2 Cardiovascular : regular rate, rhythm, edema Gastrointestinal: normal inspection, normal bowel sounds, non tender, soft, no guarding, no hernia Musculoskeletal: normal inspection, back normal, normal range of motion Neurologic: normal inspection, alert, oriented x3, responsive,no focal deficits Skin: normal inspection, normal color, no rash Last 24 Hour Vital Signs Date Time Temp Pulse Resp B/P (MAP) Pulse Ox O2 Delivery O2 Flow Rate FiO2 05/06/17 15:00 104/50 Nasal Cannula 3.0 05/06/17 14:00 91 22 103/47 97 Nasal Cannula 05/06/17 13:00 100 22 108/50 97 Nasal Cannula 3.0 05/06/17 12:00 98.9 102 25 100/49 99 Nasal Cannula 3.0 05/06/17 12:00 98 05/06/17 12:00 3.0 05/06/17 11:48 92 20 99 Nasal Cannula 3.0 05/06/17 11:22 93 20 94 Bi-pap 40 05/06/17 11:00 24 106/67 97 Nasal Cannula 3.0 05/06/17 10:00 91 23 114/60 96 Bi-pap 40 05/06/17 09:24 110/56 05/06/17 09:00 92 22 110/55 96 Bi-pap 40 05/06/17 08:00 91 05/06/17 08:00 91 05/06/17 08:00 40 05/06/17 08:00 98.0 91 21 121/74 97 Bi-pap 40 05/06/17 07:43 95 19 95 Bi-pap 40 05/06/17 07:08 90 24 95 Facial 40 05/06/17 07:00 92 22 124/69 96 Bi-pap 40 05/06/17 06:00 92 33 122/61 96 Bi-pap 40 05/06/17 05:22 88 31 96 Facial 40 05/06/17 05:00 97 27 139/82 92 Bi-pap 40 05/06/17 04:06 91 05/06/17 04:00 97.8 91 33 141/71 91 Bi-pap 40 05/06/17 04:00 40 05/06/17 03:26 91 28 98 Bi-pap 40 05/06/17 03:24 88 30 93 Facial 40 05/06/17 03:24 98 20 94 Bi-pap 40 05/06/17 03:00 98 29 139/71 92 Bi-pap 40 05/06/17 02:00 87 30 124/77 94 Bi-pap 40 05/06/17 01:56 88 29 93 Facial 40 05/06/17 01:00 90 28 135/78 97 Bi-pap 40 05/06/17 00:19 89 24 93 Facial 40 05/06/17 00:15 40 05/06/17 00:01 84 05/06/17 00:00 98.7 85 35 121/66 97 Bi-pap 50 05/05/17 23:00 80 23 149/82 98 Bi-pap 50 05/05/17 22:09 84 23 97 Facial 45 05/05/17 22:00 98.4 05/05/17 22:00 98.4 80 23 149/82 98 Bi-pap 50 80 05/05/17 22:00 50 05/05/17 22:00 90 05/05/17 20:10 97.5 93 24 134/73 97 Nasal Cannula 3.0 05/05/17 18:43 98.4 96 20 106/74 92 Nasal Cannula 4.0 05/05/17 17:59 97.9 94 20 116/56 93 Nasal Cannula 4.0 36 05/05/17 17:50 97.9 05/05/17 17:49 97.9 94 20 116/56 93 Nasal Cannula 4.0 36 05/05/17 17:07 99 26 Nasal Cannula 4.0 36 05/05/17 17:07 97.9 99 20 137/80 100 Nasal Cannula 4.0 36 Intake and Output 05/06/17 05/07/17 19:00 07:00 Intake Total 1100 ml Output Total 600 ml Balance 500 ml Intake Oral 1100 ml Output Urine Total 600 ml Laboratory Tests Test 05/05/17 17:30 05/05/17 19:45 05/06/17 05:30 Arterial Blood pH 7.290 (7.350-7.450) Arterial Blood Partial Pressure CO2 71.5 mmHg (35.0-45.0) *H Arterial Blood Partial Pressure O2 64.0 mmHg (75.0-100.0) L Arterial Blood HCO3 34.3 mmol/L (22.0-26.0) H Arterial Blood Oxygen Saturation 86.2 % (92.0-98.0) L Arterial Blood Base Excess 5.2 Nir Test Positive Troponin I 0.030 ng/mL (0.000-0.056) 0.012 ng/mL (0.000-0.056) Sodium Level 140 MMOL/L (136-145) Potassium Level 4.6 MMOL/L (3.5-5.1) Chloride Level 102 MMOL/L (98-107) Carbon Dioxide Level 34 MMOL/L (21-32) H Anion Gap 4 (5-15) L Blood Urea Nitrogen 17 mg/dL (7-18) Creatinine 1.0 MG/DL (0.55-1.30) Estimat Glomerular Filtration Rate > 60 mL/min (>60) Glucose Level 221 MG/DL (74-106) H Calcium Level 9.1 MG/DL (8.5-10.1) reviewed Height (Feet): 5 Height (Inches): 4.00 Weight (Pounds): 283 Medications Current Medications Medications (Trade) Dose Ordered Sig/Kiera Route PRN Reason Start Time Stop Time Status Last Admin Dose Admin Acetaminophen (Tylenol) 650 mg Q4H PRN ORAL Fever 05/06/17 16:00 06/04/17 15:59 Albuterol/ Ipratropium (DuoNeb 0.5-3(2.5)mg/3ml) 3 ml Q4H PRN HHN Shortness of Breath 05/06/17 16:00 05/10/17 15:59 Allopurinol (Allopurinol) 300 mg DAILY ORAL 05/07/17 09:00 06/05/17 08:59 Ampicillin Sodium/ Sulbactam Sodium 3 gm/Sodium Chloride 110 ml @ 220 mls/hr Q6H IV 05/06/17 18:00 05/13/17 18:00 Atorvastatin Calcium (Lipitor) 10 mg BEDTIME ORAL 05/06/17 21:00 06/04/17 20:59 Dextrose (Dextrose 50%) STAT PRN IV Hypoglycemia 05/06/17 18:30 06/04/17 18:29 Furosemide (Lasix) 40 mg Q8HR@0100,0900,1700 IV 05/06/17 17:00 06/05/17 00:59 Heparin Sodium (Porcine) (Heparin 5000 units/ml) 5,000 units EVERY 12 HOURS SUBQ 05/06/17 21:00 06/04/17 20:59 Insulin Aspart (NovoLOG) BEFORE MEALS AND HS SUBQ 05/06/17 16:30 06/04/17 20:59 Lisinopril (Zestril) 5 mg DAILY ORAL 05/07/17 09:00 06/05/17 08:59 Ondansetron HCl (Zofran) 4 mg Q6H PRN IVP Nausea & Vomiting 05/06/17 16:00 06/04/17 15:59 Polyethylene Glycol (Miralax) 17 gm DAILYPRN PRN ORAL Constipation 05/06/17 16:00 06/04/17 15:59 Temazepam (Restoril) 15 mg HSPRN PRN ORAL Insomnia 05/06/17 16:00 05/12/17 15:59 Assessment/Plan Assessment/Plan Abx: IV Unasyn 05/05- Assesment: Acute hyperpneic resp failure s/p Bipap- now NC- 2ry to COPD exacerbation- possibly drived by viral infection (as + sick contacts)- r/o Flu- no PNA on CXR. Possibly mild CHF. -venous duplex: No DVT -CXR 05/05: There are equivocal minimal interstitial congestive changes. No focal airspace consolidation. No effusions Afebrile, no leukocytosis CHF DM2 Morbid Obesity DREW COPD Plan: -Stop IV unasyn and switch to PO Azithromycino for 5 days for COPD exacerbation ; -Check Influenza -f/u cx -Monitor CBC/BMP, temperatures -Aspiration precautions. Thank you for this consultation. Will continue to follow along with you. Discussed with CARLOS ENRIQUE. Madeline Wong M.D. May 06, 2017 16:31
[2017-05-06] MEDS ORDERED: Ampicillin/Sulbactam Sod 3 GM in NS 110 ML IV SCH (18:00)
[2017-05-06] MEDS: Heparin 5000 units/ml inj SUBQ SCH (21:00)
[2017-05-06] MEDS: Promethazine/Codeine 5ml UD ORAL PRN (21:30)
[2017-05-06] MEDS ORDERED: Azithromycin 250mg tab ORAL ONE (22:00)
--- NOTE | 2017-05-06 23:02 | Cardiology Report ---
APPROVED REPORT EKG Measurement Heart [id number] Sinus tachycardia Possible Left atrial enlargement Borderline ECG
[2017-05-07] VITALS (7 sets, daily range): BP systolic 106–132; BP diastolic 60–71
[2017-05-07] MEDS: Albuterol/Ipratropium 3ml neb HHN PRN ×3 (01:53→13:04)
[2017-05-07] MEDS: Promethazine/Codeine 5ml UD ORAL PRN ×3 (05:17→17:36)
[2017-05-07] MEDS: NovoLOG Insulin Flexpen SUBQ SCH ×4 (05:18→21:23)
--- NOTE | 2017-05-07 07:56 | Cardiology Report ---
APPROVED REPORT EXAM: Two-dimensional and M-mode echocardiogram with Doppler and color Doppler. INDICATION LV function M-Mode DIMENSIONS IVSd1.4 (0.7-1.1cm)Left Atrium (MM)5.1 (1.6-4.0cm) LVDd6.6 (3.5-5.6cm)Aortic Root2.6 (2.0-3.7cm) PWd1.1 (0.7-1.1cm)Aortic Cusp Exc.1.6 (1.5-2.0cm) LVDs5.0 (2.5-4.0cm) PWs1.6 cm Technically difficult study due to poor acoustic windows and patient body habitus. Study quality precludes accurate assessment of regional wall motion. Normal left ventricular chamber size, systolic function and wall motion to extent visualized. Diastolic flattening of Interventricular septum suggestive of RV volume over load. Left ventricular ejection fraction estimated to be 70%. Mild left ventricular hypertrophy. Small posterior pericardial effusion. Mild left atrial enlargement. Severe right atrial enlargement. Moderate right ventricular enlargement. Mild focal aortic valve sclerosis with adequate cusp excursion. Mildly thickened mitral valve leaflets with normal excursion. Mild mitral annulus and aortic root calcification. Pulmonic valve not well visualized. Normal tricuspid valve structure. IVC dilated at 3.3 cm without physiologic collapse, estimated RAP at least 20 mmHg. A color flow and spectral Doppler study was performed and revealed: Moderate mitral regurgitation. Mitral inflow velocities indicates possible pseudo normalization pattern implying moderately elevated left atrial pressure (Grade II). Moderate tricuspid regurgitation. Tricuspid systolic velocities suggests peak right ventricular systolic pressure of 82 mmHg, consistent with severe pulmonary hypertension. Mild pulmonic regurgitation present.
[2017-05-07 08:00] LABS: ALANINE AMINOTRANSFERASE 25 U/L (12-78); ALBUMIN/GLOBULIN RATIO 0.7 (1.0-2.7); ANION GAP 2 (5-15); ASPARTATE AMINO TRANSFERASE 28 U/L (15-37); CARBON DIOXIDE 37 MMOL/L (21-32); CHLORIDE 103 MMOL/L (98-107); CREATININE 1.1 MG/DL (0.55-1.30); GLOMERULAR FILTRATION RATE > 60 mL/min (>60); POTASSIUM 4.7 MMOL/L (3.5-5.1); SODIUM 141 MMOL/L (136-145); TOTAL PROTEIN 7.3 G/DL (6.4-8.2)
[2017-05-07] MEDS: Lisinopril 2.5mg tab ORAL SCH (08:08)
[2017-05-07] MEDS: Heparin 5000 units/ml inj SUBQ SCH ×2 (08:12→21:22)
[2017-05-07 08:16] LABS: BASOPHILS % (AUTO) 0.4 % (0.0-2.0); LYMPHOCYTES % (AUTO) 20.8 % (20.0-45.0); MEAN CORPUSCULAR HEMOGLOBIN 20.2 PG (27.0-31.0); MEAN CORPUSCULAR HGB CONC 26.8 G/DL (32.0-36.0); MEAN CORPUSCULAR VOLUME 75 FL (80-99); MEAN PLATELET VOLUME 8.8 FL (6.5-10.1); MONOCYTES % (AUTO) 10.8 % (1.0-10.0); PLATELET COUNT 205 K/UL (150-450); RED BLOOD COUNT 6.76 M/UL (4.20-5.40); RED CELL DISTRIBUTION WIDTH 21.8 % (11.6-14.8); WHITE BLOOD COUNT 10.2 K/UL (4.8-10.8)
--- NOTE | 2017-05-07 12:31 | Pulmonology Progress Note ---
Assessment/Plan Assessment/Plan ASSESSMENT acute hypoxemic hypercapnic respiratory failure requiring BiPAP pulmonary edema acute diastolic CHF severe pulmonary HTN moderate MR possible COPD likely acute bronchitis DREW morbid obesity Tobacco abuse HTN DM PLAN OF CARE MS floor O2 HHN , add Mucomyst via inh diuresis with IV lasix, monitor renal parameters, lytes, I/O abx, ID follows blood cx preliminary negative influenza screen negative sputum cx not collected ECHO with EF 70& and RVSP of 82 c/w severe pulmonary HTN, + moderate MR fup CXR still with CHF pro BNP trending down from 2389 ti 936 DVT prophylaxis BP management with AURA a/tussive prn bowel regimen alcohol and drug counselor on smoking cessation declined Nicotine patch monitor BS, remain in 100 range, declined initially ordered SS of insulin case discussed and evaluated by supervising physician Subjective Allergies: Coded Allergies: No Known Allergies (Unverified , 07/11/13) Subjective feeling better transferred to MS floor on O2 via NC pulse oximetry stable Objective Last 24 Hour Vital Signs Date Time Temp Pulse Resp B/P (MAP) Pulse Ox O2 Delivery O2 Flow Rate FiO2 05/07/17 08:08 120/71 05/07/17 08:00 97.0 103 20 120/71 95 Nasal Cannula 2.0 05/07/17 06:55 110 24 94 Nasal Cannula 2.0 28 05/07/17 06:45 104 28 82 Room Air 21 05/07/17 06:40 104 28 Room Air 21 05/07/17 04:00 98.2 106 21 106/62 92 Nasal Cannula 2.0 05/07/17 02:00 103 18 98 Nasal Cannula 2.0 28 05/07/17 01:54 107 20 99 Nasal Cannula 2.0 28 05/07/17 00:00 98.1 103 21 107/60 90 Nasal Cannula 2.0 05/06/17 23:08 98.1 05/06/17 21:00 98.1 98 21 147/77 90 Nasal Cannula 2.0 05/06/17 19:55 97.7 100 20 103/51 95 Nasal Cannula 3.0 05/06/17 18:19 92 20 96 Nasal Cannula 3.0 32 05/06/17 18:11 106 20 89 Nasal Cannula 2.0 28 05/06/17 18:10 98 26 Nasal Cannula 2.0 28 05/06/17 15:00 104/50 Nasal Cannula 3.0 05/06/17 14:00 91 22 103/47 97 Nasal Cannula 05/06/17 13:00 100 22 108/50 97 Nasal Cannula 3.0 General Appearance: no acute distress, other - A/A/O x3 morbidly obese AA female HEENT: normocephalic, atraumatic, anicteric Respiratory/Chest: no accessory muscle use, crackles/rales - few scattered crackles Cardiovascular: normal peripheral pulses, normal rate, regular rhythm Abdomen: normal bowel sounds, soft, non tender - obese Extremities: no edema, pedal pulses normal Neurologic/Psychiatric: alert, oriented x 3, responsive Musculoskeletal: normal muscle bulk Microbiology Date/Time Source Procedure Growth Status 05/05/17 16:20 Blood Blood Culture - Preliminary NO GROWTH AFTER 24 HOURS Resulted 05/05/17 16:10 Blood Blood Culture - Preliminary NO GROWTH AFTER 24 HOURS Resulted 05/06/17 21:30 Nasal Nares Influenza Types A,B Antigen (JESS) - Final Complete Laboratory Tests 05/07/17 05:25: White Blood Count 10.2, Red Blood Count 6.76H, Hemoglobin 13.6, Hematocrit 51.0H , Mean Corpuscular Volume 75L, Mean Corpuscular Hemoglobin 20.2L, Mean Corpuscular Hemoglobin Concent 26.8L, Red Cell Distribution Width 21.8H, Platelet Count 205, Mean Platelet Volume 8.8, Neutrophils (%) (Auto) 68.0, Lymphocytes (%) (Auto) 20.8, Monocytes (%) (Auto) 10.8H, Eosinophils (%) (Auto) 0.0, Basophils (%) (Auto) 0.4, Sodium Level 141, Potassium Level 4.7, Chloride Level 103, Carbon Dioxide Level 37H, Anion Gap 2L, Blood Urea Nitrogen 26H, Creatinine 1.1, Estimat Glomerular Filtration Rate > 60, Glucose Level 162H, Calcium Level 9.0, Total Bilirubin 0.6, Aspartate Amino Transf (AST/SGOT) 28, Alanine Aminotransferase (ALT/SGPT) 25, Alkaline Phosphatase 88, Troponin I 0.003, Pro-B-Type Natriuretic Peptide 936H, Total Protein 7.3, Albumin 3.1L, Globulin 4.2, Albumin/Globulin Ratio 0.7L Current Medications Medications (Trade) Dose Ordered Sig/Kiera Route PRN Reason Start Time Stop Time Status Last Admin Dose Admin Acetaminophen (Tylenol) 650 mg Q4H PRN ORAL Fever 05/06/17 16:00 06/04/17 15:59 05/07/17 06:54 Albuterol/ Ipratropium (DuoNeb 0.5-3(2.5)mg/3ml) 3 ml Q4H PRN HHN Shortness of Breath 05/06/17 16:00 05/10/17 15:59 05/07/17 06:45 Allopurinol (Allopurinol) 300 mg DAILY ORAL 05/07/17 09:00 06/05/17 08:59 05/07/17 08:10 Atorvastatin Calcium (Lipitor) 10 mg BEDTIME ORAL 05/06/17 21:00 06/04/17 20:59 05/06/17 21:30 Azithromycin (Zithromax) 250 mg DAILY ORAL 05/07/17 21:00 05/10/17 22:00 Dextrose (Dextrose 50%) STAT PRN IV Hypoglycemia 05/06/17 18:30 06/04/17 18:29 Furosemide (Lasix) 40 mg Q8HR@0100,0900,1700 IV 05/06/17 17:00 06/05/17 00:59 05/07/17 08:11 Heparin Sodium (Porcine) (Heparin 5000 units/ml) 5,000 units EVERY 12 HOURS SUBQ 05/06/17 21:00 06/04/17 20:59 Insulin Aspart (NovoLOG) BEFORE MEALS AND HS SUBQ 05/06/17 16:30 06/04/17 20:59 05/07/17 05:18 Lisinopril (Zestril) 5 mg DAILY ORAL 05/07/17 09:00 06/05/17 08:59 05/07/17 08:08 Ondansetron HCl (Zofran) 4 mg Q6H PRN IVP Nausea & Vomiting 05/06/17 16:00 06/04/17 15:59 Polyethylene Glycol (Miralax) 17 gm DAILYPRN PRN ORAL Constipation 05/06/17 16:00 06/04/17 15:59 Promethazine HCl/ Codeine (Phenergan with Codeine) 5 ml Q4H PRN ORAL For Cough 05/06/17 21:00 06/05/17 20:59 05/07/17 05:17 Temazepam (Restoril) 15 mg HSPRN PRN ORAL Insomnia 05/06/17 16:00 05/12/17 15:59 Fuentes ([facility])Zoila NP May 07, 2017 12:31
--- NOTE | 2017-05-07 14:26 | Diagnostic Imaging Report ---
Indication: Dyspnea Comparison: 05/06/17 A single view chest radiograph was obtained. Findings: The pulmonary vascularity is prominent bilaterally. The heart is enlarged. Bones are unremarkable. Impression: Interstitial edema
--- NOTE | 2017-05-07 18:13 | Infectious Diseases Prog Note ---
Assessment/Plan Assessment/Plan Abx: IV Unasyn 05/05-05/06 Azithromycin 05/06- Assesment: Acute hyperpneic resp failure s/p Bipap- now NC- 2ry to COPD exacerbation- possibly drived by viral infection (as + sick contacts)- r/o Flu- no PNA on CXR. Possibly mild CHF. -venous duplex: No DVT -CXR 05/05: There are equivocal minimal interstitial congestive changes. No focal airspace consolidation. No effusions -Bcx NTD -flu neg Afebrile, no leukocytosis CHF DM2 Morbid Obesity DREW COPD Plan: -Continue PO Azithromycin #2/5 for for COPD exacerbation; (QTc 437 05/05) -f/u cx -Monitor CBC/BMP, temperatures -Aspiration precautions. Thank you for this consultation. Will continue to follow along with you. Discussed with RN. Subjective Allergies: Coded Allergies: No Known Allergies (Unverified , 07/11/13) Subjective afebrile VSS no leukocytosis Objective Vital Signs Last 24 Hour Vital Signs Date Time Temp Pulse Resp B/P (MAP) Pulse Ox O2 Delivery O2 Flow Rate FiO2 05/07/17 16:00 97.1 103 20 107/63 90 Nasal Cannula 2.0 05/07/17 13:14 108 20 96 Nasal Cannula 2.0 05/07/17 13:04 102 22 94 Nasal Cannula 2.0 05/07/17 12:00 97.0 104 20 132/67 90 Nasal Cannula 2.0 05/07/17 08:08 120/71 05/07/17 08:00 97.0 103 20 120/71 95 Nasal Cannula 2.0 05/07/17 06:55 110 24 94 Nasal Cannula 2.0 05/07/17 06:45 104 28 82 Room Air 21 05/07/17 06:40 104 28 Room Air 21 05/07/17 04:00 98.2 106 21 106/62 92 Nasal Cannula 2.0 05/07/17 02:00 103 18 98 Nasal Cannula 2.0 05/07/17 01:54 107 20 99 Nasal Cannula 2.0 28 05/07/17 00:00 98.1 103 21 107/60 90 Nasal Cannula 2.0 05/06/17 23:08 98.1 05/06/17 21:00 98.1 98 21 147/77 90 Nasal Cannula 2.0 05/06/17 19:55 97.7 100 20 103/51 95 Nasal Cannula 3.0 05/06/17 18:19 92 20 96 Nasal Cannula 3.0 32 05/06/17 18:11 106 20 89 Nasal Cannula 2.0 28 Height (Feet): 5 Height (Inches): 4.00 Weight (Pounds): 283 Microbiology Date/Time Source Procedure Growth Status 05/05/17 16:20 Blood Blood Culture - Preliminary NO GROWTH AFTER 24 HOURS Resulted 05/05/17 16:10 Blood Blood Culture - Preliminary NO GROWTH AFTER 24 HOURS Resulted 05/06/17 21:30 Nasal Nares Influenza Types A,B Antigen (JESS) - Final Complete Laboratory Tests Test 05/07/17 05:25 White Blood Count 10.2 K/UL (4.8-10.8) Red Blood Count 6.76 M/UL (4.20-5.40) H Hemoglobin 13.6 G/DL (12.0-16.0) Hematocrit 51.0 % (37.0-47.0) H Mean Corpuscular Volume 75 FL (80-99) L Mean Corpuscular Hemoglobin 20.2 PG (27.0-31.0) L Mean Corpuscular Hemoglobin Concent 26.8 G/DL (32.0-36.0) L Red Cell Distribution Width 21.8 % (11.6-14.8) H Platelet Count 205 K/UL (150-450) Mean Platelet Volume 8.8 FL (6.5-10.1) Neutrophils (%) (Auto) 68.0 % (45.0-75.0) Lymphocytes (%) (Auto) 20.8 % (20.0-45.0) Monocytes (%) (Auto) 10.8 % (1.0-10.0) H Eosinophils (%) (Auto) 0.0 % (0.0-3.0) Basophils (%) (Auto) 0.4 % (0.0-2.0) Sodium Level 141 MMOL/L (136-145) Potassium Level 4.7 MMOL/L (3.5-5.1) Chloride Level 103 MMOL/L (98-107) Carbon Dioxide Level 37 MMOL/L (21-32) H Anion Gap 2 (5-15) L Blood Urea Nitrogen 26 mg/dL (7-18) H Creatinine 1.1 MG/DL (0.55-1.30) Estimat Glomerular Filtration Rate > 60 mL/min (>60) Glucose Level 162 MG/DL (74-106) H Calcium Level 9.0 MG/DL (8.5-10.1) Total Bilirubin 0.6 MG/DL (0.2-1.0) Aspartate Amino Transf (AST/SGOT) 28 U/L (15-37) Alanine Aminotransferase (ALT/SGPT) 25 U/L (12-78) Alkaline Phosphatase 88 U/L (46-116) Troponin I 0.003 ng/mL (0.000-0.056) Pro-B-Type Natriuretic Peptide 936 (0-125) H Total Protein 7.3 G/DL (6.4-8.2) Albumin 3.1 G/DL (3.4-5.0) L Globulin 4.2 g/dL Albumin/Globulin Ratio 0.7 (1.0-2.7) L Current Medications Medications (Trade) Dose Ordered Sig/Kiera Route PRN Reason Start Time Stop Time Status Last Admin Dose Admin Acetaminophen (Tylenol) 650 mg Q4H PRN ORAL Fever 05/06/17 16:00 06/04/17 15:59 05/07/17 06:54 Acetylcysteine (Mucomyst) 100 mg Q6HR HHN 05/07/17 18:00 06/06/17 17:59 Albuterol/ Ipratropium (DuoNeb 0.5-3(2.5)mg/3ml) 3 ml Q4H PRN HHN Shortness of Breath 05/06/17 16:00 05/10/17 15:59 05/07/17 13:04 Albuterol/ Ipratropium (DuoNeb 0.5-3(2.5)mg/3ml) 3 ml Q6HRT N 05/07/17 19:00 05/12/17 18:59 Allopurinol (Allopurinol) 300 mg DAILY ORAL 05/07/17 09:00 06/05/17 08:59 05/07/17 08:10 Atorvastatin Calcium (Lipitor) 10 mg BEDTIME ORAL 05/06/17 21:00 06/04/17 20:59 05/06/17 21:30 Azithromycin (Zithromax) 250 mg DAILY ORAL 05/07/17 21:00 05/10/17 22:00 Dextrose (Dextrose 50%) STAT PRN IV Hypoglycemia 05/06/17 18:30 06/04/17 18:29 Furosemide (Lasix) 40 mg Q8HR@0100,0900,1700 IV 05/06/17 17:00 06/05/17 00:59 05/07/17 17:36 Heparin Sodium (Porcine) (Heparin 5000 units/ml) 5,000 units EVERY 12 HOURS SUBQ 05/06/17 21:00 06/04/17 20:59 Insulin Aspart (NovoLOG) BEFORE MEALS AND HS SUBQ 05/06/17 16:30 06/04/17 20:59 05/07/17 17:14 Lisinopril (Zestril) 5 mg DAILY ORAL 05/07/17 09:00 06/05/17 08:59 05/07/17 08:08 Ondansetron HCl (Zofran) 4 mg Q6H PRN IVP Nausea & Vomiting 05/06/17 16:00 06/04/17 15:59 Polyethylene Glycol (Miralax) 17 gm DAILYPRN PRN ORAL Constipation 05/06/17 16:00 06/04/17 15:59 Promethazine HCl/ Codeine (Phenergan with Codeine) 5 ml Q4H PRN ORAL For Cough 05/06/17 21:00 06/05/17 20:59 05/07/17 17:36 Temazepam (Restoril) 15 mg HSPRN PRN ORAL Insomnia 05/06/17 16:00 05/12/17 15:59 Madeline Wong M.D. May 07, 2017 18:13
[2017-05-07] MEDS: Albuterol/Ipratropium 3ml neb HHN SCH (19:54)
[2017-05-07] MEDS: Azithromycin 250mg tab ORAL SCH (21:19)
[2017-05-07] MEDS ORDERED: Morphine Sulfate 4mg/ml Inj IVP PRN (22:30)
[2017-05-08] MEDS: Albuterol/Ipratropium 3ml neb HHN SCH ×4 (01:19→20:02)
[2017-05-08 04:15] VITALS: BP 110/78
[2017-05-08] MEDS: Promethazine/Codeine 5ml UD ORAL PRN ×4 (04:55→22:57)
[2017-05-08] MEDS: Albuterol/Ipratropium 3ml neb HHN PRN (05:00)
[2017-05-08] MEDS: NovoLOG Insulin Flexpen SUBQ SCH ×4 (06:08→20:42)
[2017-05-08 08:00] VITALS: BP 113/76
[2017-05-08] MEDS: Lisinopril 2.5mg tab ORAL SCH (09:00)
[2017-05-08] MEDS: Azithromycin 250mg tab ORAL SCH (09:01)
[2017-05-08] MEDS: Heparin 5000 units/ml inj SUBQ SCH ×2 (09:09→20:41)
[2017-05-08] MEDS: Morphine Sulfate 2mg/ml Inj IVP PRN ×4 (09:28→22:58)
--- NOTE | 2017-05-08 10:33 | Infectious Diseases Prog Note ---
Assessment/Plan Assessment/Plan Abx: IV Unasyn 05/05-05/06 Azithromycin 05/06- Assesment: Acute hyperpneic resp failure s/p Bipap- now NC- 2ry to COPD exacerbation- possibly drived by viral infection (as + sick contacts)- r/o Flu- no PNA on CXR. Possibly mild CHF. -venous duplex: No DVT -CXR 05/05: There are equivocal minimal interstitial congestive changes. No focal airspace consolidation. No effusions -Bcx NTD -flu neg Afebrile, no leukocytosis CHF DM2 Morbid Obesity DREW COPD Plan: -Ok to discharge home on PO Azithromycin #3/5 for for COPD exacerbation; (QTc 437 05/05) -repeat EKG -f/u cx -Monitor CBC/BMP, temperatures -Aspiration precautions. Thank you for this consultation. Will continue to follow along with you. Discussed with RN. Subjective Allergies: Coded Allergies: No Known Allergies (Unverified , 07/11/13) Subjective afebrile VSS no leukocytosis feeling better at RA now Objective Vital Signs Last 24 Hour Vital Signs Date Time Temp Pulse Resp B/P (MAP) Pulse Ox O2 Delivery O2 Flow Rate FiO2 05/08/17 09:00 113/76 05/08/17 08:00 97.9 103 19 113/76 90 Nasal Cannula 2.0 05/08/17 08:00 102 20 97 Nasal Cannula 2.0 05/08/17 07:50 102 20 96 Nasal Cannula 2.0 05/08/17 07:50 104 20 Room Air 21 05/08/17 05:55 97.9 05/08/17 05:11 99 20 98 Nasal Cannula 2.0 05/08/17 05:00 103 18 97 Nasal Cannula 2.0 05/08/17 04:15 97.9 98 20 110/78 92 Nasal Cannula 5.0 05/08/17 01:28 87 20 98 Nasal Cannula 2.0 05/08/17 01:21 98 20 96 Nasal Cannula 2.0 05/07/17 23:29 96.6 96 18 108/67 96 Nasal Cannula 05/07/17 20:18 101 21 98 Nasal Cannula 2.0 05/07/17 19:59 97 24 Room Air 05/07/17 19:57 97 20 95 Nasal Cannula 2.0 05/07/17 19:07 97.8 104 20 123/68 92 Room Air 05/07/17 16:00 97.1 103 20 107/63 90 Nasal Cannula 2.0 05/07/17 13:14 108 20 96 Nasal Cannula 2.0 28 05/07/17 13:04 102 22 94 Nasal Cannula 2.0 28 05/07/17 12:00 97.0 104 20 132/67 90 Nasal Cannula 2.0 Height (Feet): 5 Height (Inches): 4.00 Weight (Pounds): 283 Objective General Appearance: normal inspection, well appearing, no apparent distress HEENT: no oral lesions, PERRL Neck: supple Respiratory: normal inspection, no retraction, wheezing (improving) Cardiovascular : regular rate, rhythm, edema Gastrointestinal: normal inspection, normal bowel sounds, non tender, soft, no guarding, no hernia Musculoskeletal: normal inspection, back normal, normal range of motion Neurologic: normal inspection, alert, oriented x3, responsive,no focal deficits Skin: normal inspection, normal color, no rash Microbiology Date/Time Source Procedure Growth Status 05/05/17 16:20 Blood Blood Culture - Preliminary NO GROWTH AFTER 24 HOURS Resulted 05/05/17 16:10 Blood Blood Culture - Preliminary NO GROWTH AFTER 24 HOURS Resulted 05/06/17 21:30 Nasal Nares Influenza Types A,B Antigen (JESS) - Final Complete reviewed Current Medications Medications (Trade) Dose Ordered Sig/Kiera Route PRN Reason Start Time Stop Time Status Last Admin Dose Admin Acetaminophen (Tylenol) 650 mg Q4H PRN ORAL Fever 05/06/17 16:00 06/04/17 15:59 05/08/17 04:56 Acetylcysteine (Mucomyst) 100 mg Q6HR N 05/07/17 18:00 06/06/17 17:59 05/08/17 07:50 Albuterol/ Ipratropium (DuoNeb 0.5-3(2.5)mg/3ml) 3 ml Q4H PRN N Shortness of Breath 05/06/17 16:00 05/10/17 15:59 05/08/17 05:00 Albuterol/ Ipratropium (DuoNeb 0.5-3(2.5)mg/3ml) 3 ml Q6HRT N 05/07/17 19:00 05/12/17 18:59 05/08/17 07:50 Allopurinol (Allopurinol) 300 mg DAILY ORAL 05/07/17 09:00 06/05/17 08:59 05/08/17 09:01 Atorvastatin Calcium (Lipitor) 10 mg BEDTIME ORAL 05/06/17 21:00 06/04/17 20:59 05/07/17 21:18 Azithromycin (Zithromax) 250 mg DAILY ORAL 05/07/17 21:00 05/10/17 22:00 05/08/17 09:01 Dextrose (Dextrose 50%) STAT PRN IV Hypoglycemia 05/06/17 18:30 06/04/17 18:29 Furosemide (Lasix) 40 mg Q8HR@0100,0900,1700 IV 05/06/17 17:00 06/05/17 00:59 05/08/17 09:01 Heparin Sodium (Porcine) (Heparin 5000 units/ml) 5,000 units EVERY 12 HOURS SUBQ 05/06/17 21:00 06/04/17 20:59 05/08/17 09:09 Insulin Aspart (NovoLOG) BEFORE MEALS AND HS SUBQ 05/06/17 16:30 06/04/17 20:59 05/08/17 06:08 Lisinopril (Zestril) 5 mg DAILY ORAL 05/07/17 09:00 06/05/17 08:59 05/07/17 08:08 Morphine Sulfate (Morphine Sulfate) 2 mg Q4H PRN IVP For Pain 05/08/17 07:15 05/15/17 07:14 05/08/17 09:28 Ondansetron HCl (Zofran) 4 mg Q6H PRN IVP Nausea & Vomiting 05/06/17 16:00 06/04/17 15:59 Polyethylene Glycol (Miralax) 17 gm DAILYPRN PRN ORAL Constipation 05/06/17 16:00 06/04/17 15:59 Promethazine HCl/ Codeine (Phenergan with Codeine) 5 ml Q4H PRN ORAL For Cough 05/06/17 21:00 06/05/17 20:59 05/08/17 04:55 Temazepam (Restoril) 15 mg HSPRN PRN ORAL Insomnia 05/06/17 16:00 05/12/17 15:59 Madeline Wong M.D. May 08, 2017 10:32
[2017-05-08 11:42] VITALS: BP 103/70
--- NOTE | 2017-05-08 15:24 | Pulmonology Progress Note ---
Assessment/Plan Assessment/Plan ASSESSMENT acute hypoxemic hypercapnic respiratory failure requiring BiPAP pulmonary edema acute diastolic CHF severe pulmonary HTN moderate MR possible COPD likely acute bronchitis DREW morbid obesity Tobacco abuse HTN DM PLAN OF CARE MS floor O2 HHN , add Mucomyst via inh diuresis with IV lasix, monitor renal parameters, lytes, I/O abx, ID follows blood cx preliminary negative influenza screen negative sputum cx not collected ECHO with EF 70& and RVSP of 82 c/w severe pulmonary HTN, + moderate MR fup CXR still with CHF pro BNP trending down from 2389 ti 936 clinically with improvement DVT prophylaxis BP management with AURA a/tussive prn bowel regimen application counselor on smoking cessation declined Nicotine patch monitor BS, remain in 100 range, declined initially ordered SS of insulin BiPAP prn dc in AM case discussed and evaluated by supervising physician Subjective Allergies: Coded Allergies: No Known Allergies (Unverified , 07/11/13) Subjective feeling better afebrile no leukocytosis on o2 via NC intermittently and on RA, pulse ox stable no SOB, less cough and congestion Objective Last 24 Hour Vital Signs Date Time Temp Pulse Resp B/P (MAP) Pulse Ox O2 Delivery O2 Flow Rate FiO2 05/08/17 13:37 100 18 99 Room Air 05/08/17 11:42 97.0 96 19 103/70 91 Room Air 05/08/17 09:00 113/76 05/08/17 08:00 97.9 103 19 113/76 90 Nasal Cannula 2.0 05/08/17 08:00 102 20 97 Nasal Cannula 2.0 05/08/17 07:50 102 20 96 Nasal Cannula 2.0 05/08/17 07:50 104 20 Room Air 05/08/17 05:55 97.9 05/08/17 05:11 99 20 98 Nasal Cannula 2.0 05/08/17 05:00 103 18 97 Nasal Cannula 2.0 05/08/17 04:15 97.9 98 20 110/78 92 Nasal Cannula 5.0 05/08/17 01:28 87 20 98 Nasal Cannula 2.0 05/08/17 01:21 98 20 96 Nasal Cannula 2.0 05/07/17 23:29 96.6 96 18 108/67 96 Nasal Cannula 05/07/17 20:18 101 21 98 Nasal Cannula 2.0 28 05/07/17 19:59 97 24 Room Air 21 05/07/17 19:57 97 20 95 Nasal Cannula 2.0 28 05/07/17 19:07 97.8 104 20 123/68 92 Room Air 05/07/17 16:00 97.1 103 20 107/63 90 Nasal Cannula 2.0 Intake and Output 05/08/17 05/09/17 19:00 07:00 Intake Total 240 ml Balance 240 ml Intake Oral 240 ml Objective General Appearance: no acute distress, A/A/O x3 morbidly obese AA female HEENT: normocephalic, atraumatic, anicteric Respiratory/Chest: no accessory muscle use, few occasional crackles Cardiovascular: normal peripheral pulses, normal rate, regular rhythm Abdomen: normal bowel sounds, soft, non tender , obese Extremities: no edema, pedal pulses normal Neurologic/Psychiatric: alert, oriented x 3, responsive Musculoskeletal: normal muscle bulk Microbiology Date/Time Source Procedure Growth Status 05/05/17 16:20 Blood Blood Culture - Preliminary NO GROWTH AFTER 48 HOURS Resulted 05/05/17 16:10 Blood Blood Culture - Preliminary NO GROWTH AFTER 48 HOURS Resulted 05/06/17 21:30 Nasal Nares Influenza Types A,B Antigen (JESS) - Final Complete Current Medications Medications (Trade) Dose Ordered Sig/Kiera Route PRN Reason Start Time Stop Time Status Last Admin Dose Admin Acetaminophen (Tylenol) 650 mg Q4H PRN ORAL Fever 05/06/17 16:00 06/04/17 15:59 05/08/17 04:56 Acetylcysteine (Mucomyst) 100 mg Q6HR HHN 05/07/17 18:00 06/06/17 17:59 05/08/17 07:50 Albuterol/ Ipratropium (DuoNeb 0.5-3(2.5)mg/3ml) 3 ml Q4H PRN HHN Shortness of Breath 05/06/17 16:00 05/10/17 15:59 05/08/17 05:00 Albuterol/ Ipratropium (DuoNeb 0.5-3(2.5)mg/3ml) 3 ml Q6HRT HHN 05/07/17 19:00 05/12/17 18:59 05/08/17 13:34 Allopurinol (Allopurinol) 300 mg DAILY ORAL 05/07/17 09:00 06/05/17 08:59 05/08/17 09:01 Atorvastatin Calcium (Lipitor) 10 mg BEDTIME ORAL 05/06/17 21:00 06/04/17 20:59 05/07/17 21:18 Azithromycin (Zithromax) 250 mg DAILY ORAL 05/07/17 21:00 05/10/17 22:00 05/08/17 09:01 Dextrose (Dextrose 50%) STAT PRN IV Hypoglycemia 05/06/17 18:30 06/04/17 18:29 Furosemide (Lasix) 40 mg Q8HR@0100,0900,1700 IV 05/06/17 17:00 06/05/17 00:59 05/08/17 09:01 Heparin Sodium (Porcine) (Heparin 5000 units/ml) 5,000 units EVERY 12 HOURS SUBQ 05/06/17 21:00 06/04/17 20:59 05/08/17 09:09 Insulin Aspart (NovoLOG) BEFORE MEALS AND HS SUBQ 05/06/17 16:30 06/04/17 20:59 05/08/17 11:46 Lisinopril (Zestril) 5 mg DAILY ORAL 05/07/17 09:00 06/05/17 08:59 05/07/17 08:08 Morphine Sulfate (Morphine Sulfate) 2 mg Q4H PRN IVP For Pain 05/08/17 07:15 05/15/17 07:14 05/08/17 15:06 Ondansetron HCl (Zofran) 4 mg Q6H PRN IVP Nausea & Vomiting 05/06/17 16:00 06/04/17 15:59 Polyethylene Glycol (Miralax) 17 gm DAILYPRN PRN ORAL Constipation 05/06/17 16:00 06/04/17 15:59 Promethazine HCl/ Codeine (Phenergan with Codeine) 5 ml Q4H PRN ORAL For Cough 05/06/17 21:00 06/05/17 20:59 05/08/17 04:55 Temazepam (Restoril) 15 mg HSPRN PRN ORAL Insomnia 05/06/17 16:00 05/12/17 15:59 Zoila Dill NP (Vanchtein) May 08, 2017 15:24
[2017-05-08 15:30] VITALS: BP 130/68
[2017-05-08 20:00] VITALS: BP 128/78
[2017-05-08] MEDS ORDERED: AZITHROMYCIN250 MG ORAL (22:00)
[2017-05-09] VITALS: BP 143/84
[2017-05-09] MEDS: Albuterol/Ipratropium 3ml neb HHN SCH ×2 (01:14→08:04)
[2017-05-09] MEDS: Promethazine/Codeine 5ml UD ORAL PRN (03:10)
[2017-05-09 03:23] VITALS: BP 151/90
[2017-05-09] MEDS: NovoLOG Insulin Flexpen SUBQ SCH ×2 (05:54→12:05)
[2017-05-09 08:18] VITALS: BP 131/80
[2017-05-09 08:29] VITALS: BP 131/80
[2017-05-09] MEDS: Azithromycin 250mg tab ORAL SCH (08:29)
[2017-05-09] MEDS: Lisinopril 2.5mg tab ORAL SCH (08:29)
[2017-05-09] MEDS: Heparin 5000 units/ml inj SUBQ SCH (08:30)
[2017-05-09] MEDS ORDERED: PROMETHAZINE-C118 M1 ORAL ×2 (10:20→11:19)
--- NOTE | 2017-05-09 10:21 | Pulmonology Progress Note ---
Assessment/Plan Assessment/Plan ASSESSMENT acute hypoxemic hypercapnic respiratory failure requiring BiPAP pulmonary edema acute diastolic CHF severe pulmonary HTN moderate MR possible COPD likely acute bronchitis DREW morbid obesity Tobacco abuse HTN DM PLAN OF CARE MS floor O2 HHN , add Mucomyst via inh diuresis with IV lasix, monitor renal parameters, lytes, I/O abx, ID follows blood cx preliminary negative influenza screen negative sputum cx not collected ECHO with EF 70& and RVSP of 82 c/w severe pulmonary HTN, + moderate MR fup CXR still with CHF pro BNP trending down from 2389 ti 936 clinically with improvement DVT prophylaxis BP management with AURA a/tussive prn bowel regimen apprise counselor on smoking cessation declined Nicotine patch monitor BS, remain in 100 range, declined initially ordered SS of insulin BiPAP prn dc today case discussed and evaluated by supervising physician Subjective Allergies: Coded Allergies: No Known Allergies (Unverified , 07/11/13) Subjective feeling better afebrile no leukocytosis on RA, pulse ox stable no SOB, less cough , no congestion Objective Last 24 Hour Vital Signs Date Time Temp Pulse Resp B/P (MAP) Pulse Ox O2 Delivery O2 Flow Rate FiO2 05/09/17 08:29 131/80 05/09/17 08:18 99.4 92 20 131/80 98 Room Air 05/09/17 08:15 98 18 94 Nasal Cannula 2.0 05/09/17 08:04 90 20 94 Nasal Cannula 2.0 05/09/17 04:05 20 94 Nasal Cannula 2.0 05/09/17 03:23 97.7 98 18 151/90 91 Room Air 05/09/17 01:28 97 20 99 Nasal Cannula 2.0 05/09/17 01:14 97 20 92 Nasal Cannula 2.0 05/09/17 00:00 97.7 106 18 143/84 91 Nasal Cannula 2.0 05/08/17 20:17 101 20 98 Nasal Cannula 2.0 28 05/08/17 20:02 101 20 Room Air 05/08/17 20:02 101 20 95 Nasal Cannula 2.0 28 05/08/17 20:00 97.1 92 18 128/78 94 Nasal Cannula 2.0 05/08/17 15:30 96.6 96 20 130/68 91 Nasal Cannula 2.0 05/08/17 13:47 106 22 97 Nasal Cannula 2.0 28 05/08/17 13:37 100 18 99 Room Air 21 05/08/17 11:42 97.0 96 19 103/70 91 Room Air Intake and Output 05/09/17 05/10/17 19:00 07:00 Intake Total 380 ml Balance 380 ml Intake Oral 380 ml Objective General Appearance: no acute distress, A/A/O x3 morbidly obese AA female HEENT: normocephalic, atraumatic, anicteric Respiratory/Chest: no accessory muscle use, CTAB Cardiovascular: normal peripheral pulses, normal rate, regular rhythm Abdomen: normal bowel sounds, soft, non tender , obese Extremities: no edema, pedal pulses normal Neurologic/Psychiatric: alert, oriented x 3, responsive Musculoskeletal: normal muscle bulk Microbiology Date/Time Source Procedure Growth Status 05/06/17 21:30 Nasal Nares Influenza Types A,B Antigen (JESS) - Final Complete Current Medications Medications (Trade) Dose Ordered Sig/Kiera Route PRN Reason Start Time Stop Time Status Last Admin Dose Admin Acetaminophen (Tylenol) 650 mg Q4H PRN ORAL Fever 05/06/17 16:00 06/04/17 15:59 05/09/17 03:12 Acetylcysteine (Mucomyst) 100 mg Q6HR HHN 05/07/17 18:00 06/06/17 17:59 05/09/17 08:04 Albuterol/ Ipratropium (DuoNeb 0.5-3(2.5)mg/3ml) 3 ml Q4H PRN HHN Shortness of Breath 05/06/17 16:00 05/10/17 15:59 05/08/17 05:00 Albuterol/ Ipratropium (DuoNeb 0.5-3(2.5)mg/3ml) 3 ml Q6HRT HHN 05/07/17 19:00 05/12/17 18:59 05/09/17 08:04 Allopurinol (Allopurinol) 300 mg DAILY ORAL 05/07/17 09:00 06/05/17 08:59 05/09/17 08:29 Atorvastatin Calcium (Lipitor) 10 mg BEDTIME ORAL 05/06/17 21:00 06/04/17 20:59 05/08/17 20:37 Azithromycin (Zithromax) 250 mg DAILY ORAL 05/07/17 21:00 05/10/17 22:00 05/09/17 08:29 Dextrose (Dextrose 50%) STAT PRN IV Hypoglycemia 05/06/17 18:30 06/04/17 18:29 Furosemide (Lasix) 40 mg Q8HR@0100,0900,1700 IV 05/06/17 17:00 06/05/17 00:59 05/09/17 00:39 Heparin Sodium (Porcine) (Heparin 5000 units/ml) 5,000 units EVERY 12 HOURS SUBQ 05/06/17 21:00 06/04/17 20:59 05/09/17 08:30 Insulin Aspart (NovoLOG) BEFORE MEALS AND HS SUBQ 05/06/17 16:30 06/04/17 20:59 05/09/17 05:54 Lisinopril (Zestril) 5 mg DAILY ORAL 05/07/17 09:00 06/05/17 08:59 05/09/17 08:29 Morphine Sulfate (Morphine Sulfate) 2 mg Q4H PRN IVP For Pain 05/08/17 07:15 05/15/17 07:14 05/08/17 22:58 Ondansetron HCl (Zofran) 4 mg Q6H PRN IVP Nausea & Vomiting 05/06/17 16:00 06/04/17 15:59 Polyethylene Glycol (Miralax) 17 gm DAILYPRN PRN ORAL Constipation 05/06/17 16:00 06/04/17 15:59 Promethazine HCl/ Codeine (Phenergan with Codeine) 5 ml Q4H PRN ORAL For Cough 05/06/17 21:00 06/05/17 20:59 05/09/17 03:10 Temazepam (Restoril) 15 mg HSPRN PRN ORAL Insomnia 05/06/17 16:00 05/12/17 15:59 Fuentes ([facility])Zoila NP May 09, 2017 10:21
--- NOTE | 2017-05-11 07:42 | Discharge Summary ---
Discharge Summary Hospital Course Date of Admission May 05, 2017 at 17:04 Date of Discharge May 09, 2017 at 12:17 Admitting Diagnosis COPD EXACERBATION HPI Gia Bennett is a 47 year old female who was admitted on May 05, 2017 at 17:04 for Chronic Obstructive Pulmonary Disorder Hospital Course dc summary #[id number] Discharge Medications New Medications: Azithromycin* (Zithromax*) 250 Mg Tablet 250 MG ORAL DAILY, #1 TAB Codeine/Promethazine Hcl* (Promethazine-Codeine Syrup*) 118 Ml Syrup 5 ML ORAL QID PRN, #12 OZ 0 Refills Continued Medications: Allopurinol* (Allopurinol*) 300 Mg Tablet 300 MG ORAL DAILY, TAB Aspirin* (Aspirin*) 81 Mg Tab.chew 162 MG ORAL DAILY, TAB Atenolol* (Tenormin*) 25 Mg Tablet 12.5 MG ORAL BID for 30 Days, TAB Atorvastatin Calcium* (Lipitor*) 10 Mg Tablet 10 MG ORAL BEDTIME for 30 Days, TAB Furosemide* (Lasix*) 40 Mg Tablet 80 MG ORAL DAILY, TAB Lisinopril* (Lisinopril*) 10 Mg Tablet 5 MG ORAL DAILY, TAB Metformin Hcl* (Metformin Hcl*) 1,000 Mg Tablet 1000 MG ORAL BID, TAB Potassium Chloride (Potassium Chloride) 20 Meq Packet 20 MEQ ORAL DAILY, #30 PKT 0 Refills Discharge Condition Upon Discharge: stable Discharge Disposition Patient was discharged to Home (01) Discharge Diagnoses: Fuentes ([facility])Zoila NP May 11, 2017 07:42
--- NOTE | 2017-05-11 17:45 | Discharge Summary 2 SIG ---
DATE OF ADMISSION: 05/05/2017 DATE OF DISCHARGE: 05/09/2017 REASON FOR ADMISSION: 47-year-old morbidly obese female with a history of diabetes, obstructive sleep apnea, CHF, presented for increased shortness of breath. She admitted to the sick contact with a grandchild having a flu-like symptoms. She denied chest pain. Upon evaluation in the emergency room, troponin was negative. Chest x-ray with evidence of cardiomegaly and interstitial edema consistent with mild CHF. Pro BNP -2389. Troponin - negative. ABG with acidosis and hypercapnia. Lactic acid within normal limits. The patient was placed on the BiPAP. The patient was admitted for acute respiratory failure and pulmonary edema. HOSPITAL STAY: The patient was started on the BiPAP. FiO2 titrated to keep saturation above 92%. The patient was tarted on diuresis. Intake and output, renal parameters, electrolytes were closely monitored and replaced as needed. Pulmonary toilet in form of chest physical therapy and handheld nebulizing were initiated. ID consult was requested. The patient initially was on the IV antibiotics, which were changed by ID specialist to oral azithromycin for a total of five days. Sputum culture was not collected since cough was dry. Influenza screen test was negative. Blood culture were negative. Antitussive provided as needed. Echocardiogram revealed preserved ejection fraction of 70%. It was technically difficult study due to the patient's body habitus. However, to extent visualized normal left ventricular chamber size, systolic function and wall motion were noted. Right ventricular systolic pressure of 82 consistent with severe pulmonary hypertension. Evidence of moderate mitral regurgitation and moderate tricuspid regurgitation. Followup chest x-ray still revealed evidence of interstitial congestion, however Pro-BNP was significantly down from initial 2389 down to 936. The patient was able to be weaned from the BiPAP to oxygen via nasal cannula and eventually to room air. The patient clinically significantly improved and felt much better. DVT prophylaxis provided. Venous duplex bilateral lower extremities was negative. Blood pressure was managed with AURA inhibitor, was stable. Bowel regimen instituted. The patient was counseled on smoking cessation. The patient smokes up to five cigarettes a day. She declined nicotine patch, not ready to quit yet. Blood sugar remained in low 100 th range. She declined initially order of sliding scale of insulin on as needed basis. At home continue oral antiglycemic as before. The patient was counseled to get BiPAP/CPAP machine at home for nighttime use for obstructive sleep apnea. If sleep study was not recent, advised to have the sleep study as outpatient in order to be qualified for the CPAP machine. The patient was stable for discharge. FINAL DIAGNOSES: 1. Acute hypoxemic hypercapnic respiratory failure requiring BiPAP. 2. Pulmonary edema, 3. Acute diastolic congestive heart failure, resolved. 4. Severe pulmonary hypertension. 5. Moderate mitral regurgitation. 6. Likely acute bronchitis, 7. Possible chronic obstructive pulmonary disease. 8. Obstructive sleep apnea. 9. Morbid obesity. 10.Tobacco abuse 11.Hypertension. 12. Diabetes. DISCHARGE MEDICATIONS: See medication reconciliation list. DISCHARGE INSTRUCTION: The patient was discharged home. FOLLOWUP: Followup with primary medical doctor. Luciana Buck M.D. Zoila [facility]fferSt[facility]Mir NGracePGrace DR: CATARINO JOB#: [id number] CC: SUDHEER
--- NOTE | 2017-05-18 08:30 | Cardiology Report ---
APPROVED REPORT EKG Measurement Heart [id number] Sinus tachycardia Possible Left atrial enlargement Rightward axis Low voltage QRS Borderline ECG
== END 2017-05-09 12:17 | disposition home or self-care (01) | DRG 133 ==
LOC: EMR 16:20 → EDBEDREQ 16:48 → 2E 17:04 → EDBEDREQ 17:29 → ICU 21:54 → 4W 05-06 15:20
PROC: 5A09357 Assistance with Respiratory Ventilation, Less than 24 Consecutive Hours, Continuous Positive Airway Pressure (ICD-10-PCS; principal; 2017-05-05)
DX: J96.02 Acute respiratory failure with hypercapnia (principal); I50.33 Acute on chronic diastolic (congestive) heart failure; E87.2 Acidosis; I27.20 Pulmonary hypertension, unspecified; Z68.42 Body mass index [BMI] 45.0-49.9, adult; J44.0 Chronic obstructive pulmonary disease with (acute) lower respiratory infection; J96.01 Acute respiratory failure with hypoxia; I11.0 Hypertensive heart disease with heart failure; J44.1 Chronic obstructive pulmonary disease with (acute) exacerbation; J20.9 Acute bronchitis, unspecified; E11.9 Type 2 diabetes mellitus without complications; M10.9 Gout, unspecified; I08.1 Rheumatic disorders of both mitral and tricuspid valves; G47.33 Obstructive sleep apnea (adult) (pediatric); E66.01 Morbid (severe) obesity due to excess calories; Z72.0 Tobacco use; Z79.84 Long term (current) use of oral hypoglycemic drugs
CPT/HCPCS: 36415; 36600; 71010; 80048; 80053; 82550; 82553; 82803; 82962; 83605; 83690; 83880; 84484; 85025; 85610; 85730; 86710; 87040; 93005; 93306; 93970; 94640; 94660; 94664; 99285; J1815; J7620

== ENCOUNTER 2017-10-07 16:03 | Emergency (ER) | payer MEDICAID ==
[~2017-10-07] VITALS: Ht 162.6 cm; Wt 120.7 kg
[~2017-10-07 16:03] MED LIST changes: +LISINOPRIL10 MG ORAL; +PROMETHAZINE-C118 M1 ORAL
--- NOTE | 2017-10-07 16:37 | Emergency Room Report ---
History of Present Illness General Chief Complaint: Lower Extremity Injury Present Illness HPI 47 yo female patient presents to ER complaining of right ankle pain. Reports twisted ankle walking earlier. Reports unable to ambulate secondary to pain. Requesting crutches. Reports took taxi to ER. Denies hitting head, LOC. Denies fever, chest pain, SOB. Allergies: Coded Allergies: No Known Allergies (Unverified , 07/11/13) Patient History Past Medical History: see triage record Reviewed Nursing Documentation: PMH: Agreed, PSxH: Agreed Nursing Documentation-PMH Hx Cardiac Problems: Yes - CHF Hx Hypertension: Yes Hx Asthma: Yes Hx Diabetes: Yes Hx Cancer: No Hx Gastrointestinal Problems: No Hx Neurological Problems: No Review of Systems All Other Systems: negative except mentioned in HPI Physical Exam Vital Signs Date Time Temp Pulse Resp B/P (MAP) Pulse Ox O2 Delivery O2 Flow Rate FiO2 10/07/17 16:27 97.5 92 18 136/85 99 Room Air 97.5 Sp02 EP Interpretation: reviewed, normal General Appearance: well appearing, no apparent distress, alert, GCS 15, non- toxic Head: normocephalic, atraumatic Eyes: bilateral eye normal inspection, bilateral eye PERRL ENT: hearing grossly normal, normal pharynx, no angioedema, normal voice, uvula midline, moist mucus membranes Neck: full range of motion Respiratory: lungs clear, normal breath sounds, no rhonchi, no respiratory distress, no accessory muscle use, no wheezing, speaking full sentences Cardiovascular #1: regular rate, rhythm, no edema Cardiovascular #2: 2+ dorsalis pedis (R), 2+ dorsalis pedis (L) Genitourinary: no CVA tenderness Musculoskeletal: back normal, digits/nails normal, no calf tenderness, Mike's Sign negative, swelling, other - NVI, tender - base of fifth metatarsal Neurologic: alert, oriented x3, responsive, motor strength/tone normal, sensory intact Psychiatric: mood/affect normal Skin: no rash Lymphatic: no adenopathy Medical Decision Making PA Attestation Dr. Biggs is my supervising Physician whom patient management has been discussed with. Diagnostic Impression: Primary Impression: Fracture of fifth metatarsal bone ER Course Pt. presents to the ED c/o right foot pain. Ddx considered but are not limited to fracture, sprain, strain, contusion. Vital signs: are WNL, pt. is afebrile Ordered X-ray and pain medication. ER COURSE An X-ray of the right ankle was ordered, results show fracture of fifth metatarsal, no ankle fracture per the preliminary reading. Informed patient of results. Toradol provided for pain. Short leg cast placed on right foot and was checked afterwards by me showing good alignment and support with distal neurovascular functioning intact. Crutches provided. Patient instructed to be non-weight bearing. F/u with primary care for referral to ortho. Patient instructed on RICE method: rest, ice, compression, elevation. Work note provided. Patient reports feeling better following administration of pain medication. DISCHARGE: -Rx provided for [place] for pain symptoms. -Rx provided for Tylenol for pain symptoms. At this time pt. is stable for d/c to home. Patient resting comfortably, in no acute distress, nontoxic appearing, laughing and smiling and talking without difficulty. Will provide printed patient care instructions, and any necessary prescriptions. Patient instructed to follow with primary care provider in 3 - 5 days and to request further orthopedic follow-up. Care plan and follow up instructions have been discussed with the patient prior to discharge. Patient instructed on RICE method: rest, ice, compression, elevation. Patient instructed to NWB. Take medications as directed. Patient questions asked and answered. Patient reports understanding and agreement to treatment plan. ER precautions given, patient instructed to return to ER immediately for any new or worsening of symptoms. Other X-Ray Diagnostic Results Other X-Ray Diagnostic Results : X-Ray ordered: right ankle # of Views/Limited Vs Complete: 3 View Indication: Pain EP Interpretation: Yes PA Xray: Interpretation reviewed, by supervising MD, and agrees with findings. Interpretation: no dislocation, other - fracture at base of fifth metatarsal Impression: Other PA Scribe Text Gagandeep Aguirre PA-C Last Vital Signs Date Time Temp Pulse Resp B/P (MAP) Pulse Ox O2 Delivery O2 Flow Rate FiO2 10/07/17 16:27 97.5 92 18 136/85 99 Room Air 97.5 Disposition: HOME, SELF-CARE Condition: Stable Scripts Hydrocodone Bit/Acetaminophen 5-325* (NORCO 5-325*) 1 Each Tablet 1 TAB ORAL Q6H Y for For Pain, #10 TAB 0 Refills Prov: Brent Aguirre P.A. 10/07/17 Acetaminophen* (TYLENOL EXTRA STRENGTH*) 500 Mg Tablet 500 MG ORAL Q8H Y for Prn Headache/Temp > 101, #30 TAB 0 Refills Prov: Brent Aguirre 10/07/17 Patient Instructions: Metatarsal Fracture Additional Instructions: Patient instructed to follow up with primary care provider and discuss further referral to orthopedics. Patient instructed on RICE method: rest, ice, compression, elevation. Patient instructed to NWB. Take medications as directed. Patient questions asked and answered. ER precautions given, patient instructed to return to ER immediately for any new or worsening of symptoms. Brent Aguirre Oct 07, 2017 16:37
[2017-10-07] MEDS: Ketorolac 30mg Inj IM ONE (17:30)
[2017-10-07] MEDS ORDERED: TYLENOL EXTRA500 MG ORAL (18:00)
[2017-10-07] MEDS ORDERED: NORCO 5-325 TA1 EACH ORAL (18:00)
[2017-10-07 18:57] VITALS: BP 129/80
--- NOTE | 2017-10-08 10:42 | Diagnostic Imaging Report ---
Indication: Pain, status post fall Technique: 3 views of the right ankle Comparison: none Findings: There is a transverse nondisplaced fracture of the base of the fifth metatarsal. There is a small plantar spur. No ankle fracture demonstrated. The joint spaces are preserved. Impression: Positive for fifth metatarsal fracture This agrees with the ED physician interpretation reported in the electronic medical record
== END 2017-10-07 18:57 | disposition home or self-care (01) ==
LOC: EMR 18:45
DX: S92.354A Nondisplaced fracture of fifth metatarsal bone, right foot, initial encounter for closed fracture (principal); X50.1XXA Overexertion from prolonged static or awkward postures, initial encounter; Y93.01 Activity, walking, marching and hiking; Y92.9 Unspecified place or not applicable; I10 Essential (primary) hypertension; E11.9 Type 2 diabetes mellitus without complications; J45.909 Unspecified asthma, uncomplicated
CPT/HCPCS: 29515; 73610; 96372; 99284; J1885

== ENCOUNTER 2018-07-23 12:11 | Emergency (ER) | payer MEDICAID ==
[~2018-07-23] VITALS: Ht 162.6 cm; Wt 124.3 kg
[~2018-07-23 12:11] MED LIST changes: +NORCO 5-325 TA1 EACH ORAL; +TYLENOL EXTRA500 MG ORAL
[2018-07-23 12:20] VITALS: BP 94/50
[2018-07-23] MEDS ORDERED: Ketorolac 30mg Inj IM ONE (12:45)
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
[2018-07-23] MEDS ORDERED: IBUPROFEN600 MG ORAL (13:10)
[2018-07-23] MEDS ORDERED: ROBAXIN-750750 MG PO (13:10)
[2018-07-23 14:48] VITALS: BP 94/50
== END 2018-07-23 13:28 | disposition home or self-care (01) ==
LOC: EMR 12:25
DX: S16.1XXA Strain of muscle, fascia and tendon at neck level, initial encounter (principal); S39.012A Strain of muscle, fascia and tendon of lower back, initial encounter; S80.02XA Contusion of left knee, initial encounter; V43.52XA Car driver injured in collision with other type car in traffic accident, initial encounter; Y92.410 Unspecified street and highway as the place of occurrence of the external cause; I10 Essential (primary) hypertension; E11.9 Type 2 diabetes mellitus without complications; J45.909 Unspecified asthma, uncomplicated; Y93.9 Activity, unspecified; Y99.9 Unspecified external cause status
CPT/HCPCS: 96372; 99283; J1885

== ENCOUNTER 2018-09-20 09:56 | Emergency (ER) | payer MEDICAID ==
[~2018-09-20] VITALS: Ht 162.6 cm; Wt 130.2 kg
[~2018-09-20 09:56] MED LIST changes: +IBUPROFEN600 MG ORAL
[2018-09-20 10:10] VITALS: BP 131/77
--- NOTE | 2018-09-20 10:11 | NUR ---
ED Nurse Note: pt walked in to ED due to burning urination for 2 weeks. pt also c/o abdominal pain without n/v/d. AAO x4. respirations even and non-labored noted. breath sounds clear. skin warm to touch. no open wound noted. will wait for the further order.
--- NOTE | 2018-09-20 10:46 | NUR ---
ED Nurse Note: urine sent.
[2018-09-20 11:07] LABS: APPEARANCE,URINE CLEAR; BILIRUBIN, URINE NEGATIVE (NEGATIVE); GLUCOSE, URINE (UA) NEGATIVE (NEGATIVE); KETONES,URINE 1+ (NEGATIVE); LEUKOCYTE ESTERASE ,URINE 1+ (NEGATIVE); NITRITE,URINE NEGATIVE (NEGATIVE); PH,URINE 6 (4.5-8.0); PROTEIN,URINE NEGATIVE (NEGATIVE); UROBILINOGEN,URINE 4 MG/DL (0.0-1.0)
[2018-09-20] MEDS ORDERED: Phenazopyridine 200mg tab ORAL ONE (11:15)
[2018-09-20 11:23] LABS: COLOR,URINE YELLOW
[2018-09-20] MEDS ORDERED: BACTRIM DS TAB1 EAC1 ORAL (11:26)
[2018-09-20] MEDS ORDERED: PHENAZOPYRIDIN100 MG ORAL (11:26)
[2018-09-20 11:51] VITALS: BP 125/74
--- NOTE | 2018-09-20 11:51 | NUR ---
ER DISCHARGE NOTE: Patient is cleared to be discharged per ERMD, pt is aox4, on room air, with stable vital signs. pt was given dc and prescription instructions, pt was able to verbalize understanding, pt id band removed. pt is able to ambulate with steady gait. pt took all belongings.
--- NOTE | 2018-09-20 13:09 | Emergency Room Report ---
History of Present Illness General Chief Complaint: Female Urogenital Problems Source: Patient Present Illness HPI Patient presents with complaints of dysuria or frequency Reports ongoing for the past 2 weeks She has not started to feel little bit more weak than usual denies any chest pain denies any shortness of breath denies any neck pain or photophobia Patient reports that she has not been sexually active for over the past 2 years denies any vaginal discharge Allergies: Coded Allergies: No Known Allergies (Unverified , 07/11/13) Patient History Past Medical History: see triage record Pertinent Family History: none Last Menstrual Period: menopause Reviewed Nursing Documentation: PMH: Agreed; PSxH: Agreed Nursing Documentation-PMH Hx Cardiac Problems: Yes - CHF Hx Hypertension: Yes - gout Hx Pacemaker: No Hx Asthma: Yes Hx COPD: No Hx Diabetes: Yes Hx Cancer: No Hx Gastrointestinal Problems: No Hx Dialysis: No History Of Psychiatric Problem: No Hx Neurological Problems: No Hx Cerebrovascular Accident: No Hx Seizures: No Review of Systems All Other Systems: negative except mentioned in HPI Physical Exam Vital Signs Date Time Temp Pulse Resp B/P (MAP) Pulse Ox O2 Delivery O2 Flow Rate FiO2 09/20/18 10:03 97.5 90 16 131/77 95 Room Air Sp02 EP Interpretation: reviewed, normal General Appearance: well appearing, no apparent distress Head: normocephalic, atraumatic Eyes: bilateral eye PERRL, bilateral eye EOMI ENT: hearing grossly normal, normal pharynx, TMs + canals normal, uvula midline Neck: full range of motion, supple, no meningismus, no bony tend Respiratory: lungs clear, normal breath sounds, no rhonchi, no respiratory distress, no retraction, no accessory muscle use Cardiovascular #1: normal peripheral pulses, regular rate, rhythm, no edema, no gallop, no JVD, no murmur Gastrointestinal: normal bowel sounds, non tender, soft, no mass, no organomegaly, non-distended, no guarding, no hernia, no pulsatile mass, no rebound Genitourinary: no CVA tenderness Musculoskeletal: normal inspection Neurologic: oriented x3, responsive, nail puller III-XII nml as tested, motor strength/ tone normal, sensory intact Psychiatric: mood/affect normal Skin: normal color, no rash, warm/dry, palpation normal Lymphatic: normal inspection, no adenopathy Medical Decision Making Diagnostic Impression: Primary Impression: uti ER Course With the patient's history and examination, multiple differentials considered, including but not limited to , ectopic , ovarian torsion, gastritis, cholecystitis, pancreatitis, appendicitis Patient's urine sample does show evidence of bacteria patient was provided with pyridium here Patient does not appear septic or toxic does not show evidence of pyelonephritis and will have initial conservative outpatient trial Labs Test 09/20/18 10:15 Urine Color Yellow Urine Appearance Clear Urine pH 6 (4.5-8.0) Urine Specific [place] 1.015 (1.005-1.035) Urine Protein Negative (NEGATIVE) Urine Glucose (UA) Negative (NEGATIVE) Urine Ketones 1+ (NEGATIVE) Urine Blood Negative (NEGATIVE) Urine Nitrite Negative (NEGATIVE) Urine Bilirubin Negative (NEGATIVE) Urine Urobilinogen 4 MG/DL (0.0-1.0) Urine Leukocyte Esterase 1+ (NEGATIVE) Urine RBC 0 /HPF (0 - 2) Urine WBC 5-10 /HPF (0 - 2) Urine Squamous Epithelial Cells Few /LPF (NONE/OCC) Urine Bacteria Many /HPF (NONE) Last Vital Signs Date Time Temp Pulse Resp B/P (MAP) Pulse Ox O2 Delivery O2 Flow Rate FiO2 09/20/18 11:51 97.5 85 20 125/74 99 Room Air Status: improved Disposition: HOME, SELF-CARE Condition: Improved Scripts Phenazopyridine Hcl* (PYRIDIUM*) 100 Mg Tablet 100 MG ORAL THREE TIMES A DAY, #9 TAB Prov: Pallavi Chino DO 09/20/18 Trimethoprim/Sulfamethoxazole 160/800* (BACTRIM DS TABLET*) 1 Each Tablet 1 TAB ORAL Q12H, #14 TAB 0 Refills Prov: Pallaiv Chino DO 09/20/18 Referrals: NON PHYSICIAN (PCP) Patient Instructions: Urinary Tract Infection Additional Instructions: Patient is provided with the discharge instructions notified to follow up with primary doctor in the next 2-3 days otherwise return to the er with any worsening symptoms. Please note that this report is being documented using [employer] technology. This can lead to erroneous entry secondary to incorrect interpretation by the dictating instrument. Pallavi Chino DO Sep 20, 2018 13:09
== END 2018-09-20 11:51 | disposition home or self-care (01) ==
LOC: EMR 10:40
DX: N39.0 Urinary tract infection, site not specified (principal); M10.9 Gout, unspecified; J45.909 Unspecified asthma, uncomplicated; E11.9 Type 2 diabetes mellitus without complications; I11.0 Hypertensive heart disease with heart failure; I50.9 Heart failure, unspecified
CPT/HCPCS: 81003; 87086; 87181; 99283

== ENCOUNTER 2019-02-27 02:51 | Emergency (ER) | payer MEDICAID ==
[~2019-02-27] VITALS: Ht 162.6 cm; Wt 122.5 kg
[~2019-02-27 02:51] MED LIST changes: +BACTRIM DS TAB1 EAC1 ORAL; +GLYBURIDE5 MG PO; +PHENAZOPYRIDIN100 MG ORAL; +PHENERGAN6.25 MG/5 ORAL
[2019-02-27 03:05] VITALS: BP 150/90
--- NOTE | 2019-02-27 03:05 | NUR ---
ED Nurse Note: pt walked in to ED c/O dysuria, urgency and frequency of urination. states burning sensation present when she urinates. VSS
[2019-02-27] MEDS ORDERED: CEPHALEXIN500 MG ORAL (03:28)
[2019-02-27] MEDS ORDERED: PHENAZOPYRIDIN200 MG ORAL (03:28)
--- NOTE | 2019-02-27 03:29 | Emergency Room Report ---
History of Present Illness General Chief Complaint: Female Urogenital Problems Source: Patient Present Illness [facility] This is a 49-year-old female with history of diabetes. She presents with chief complaint of UTI symptoms. Onset this afternoon. She has urgency, frequency and dysuria. No hematuria. Similar symptom in the past. She grew out E. coli in the past and is pansensitive. No back pain. No nausea no vomiting. Denies any other complaint. Worse with urination. Allergies: Coded Allergies: No Known Allergies (Unverified , 07/11/13) Patient History Past Medical History: see triage record, old chart reviewed, DM Past Surgical History: other Pertinent Family History: none Social History: Denies: smoking Last Menstrual Period: Four years ago Now: No Immunizations: other Reviewed Nursing Documentation: PMH: Agreed; PSxH: Agreed Nursing Documentation-PMH Hx Cardiac Problems: Yes - CHF Hx Hypertension: Yes Hx Pacemaker: No Hx Asthma: Yes Hx COPD: No Hx Diabetes: Yes Hx Cancer: No Hx Gastrointestinal Problems: No Hx Dialysis: No Hx Neurological Problems: No Hx Cerebrovascular Accident: No Hx Seizures: No Review of Systems Eye: Denies: eye pain, blurred vision ENT: Denies: ear pain, nose congestion, throat swelling Respiratory: Denies: cough, shortness of breath Cardiovascular: Denies: chest pain, palpitations Gastrointestinal: Denies: abdominal pain, diarrhea, nausea, vomiting Genitourinary: Reports: dysuria, frequency, urgency Musculoskeletal: Denies: back pain, joint pain Skin: Denies: rash Neurological: Denies: headache, numbness Endocrine: Denies: increased thirst, increased urine Hematologic/Lymphatic: Denies: easy bruising All Other Systems: negative except mentioned in HPI Physical Exam Vital Signs Date Time Temp Pulse Resp B/P (MAP) Pulse Ox O2 Delivery O2 Flow Rate FiO2 02/27/19 02:56 98.4 87 16 148/93 (111) 94 Room Air Vitals unremarkable. Sp02 EP Interpretation: reviewed, normal General Appearance: well appearing, no apparent distress, alert Head: normocephalic, atraumatic Eyes: bilateral eye PERRL, bilateral eye EOMI ENT: hearing grossly normal, normal pharynx Neck: full range of motion, supple, no meningismus Respiratory: chest non-tender, lungs clear, normal breath sounds Cardiovascular #1: regular rate, rhythm, no murmur Gastrointestinal: normal bowel sounds, non tender, no mass, no organomegaly, no bruit, non-distended Musculoskeletal: back normal, gait/station normal, normal range of motion Psychiatric: mood/affect normal Medical Decision Making Diagnostic Impression: Primary Impression: UTI (urinary tract infection) Qualified Codes: N30.00 - Acute cystitis without hematuria ER Course Patient presents with UTI. No evidence of pyelonephritis or sepsis. Dose of antibiotics given. Last Vital Signs Date Time Temp Pulse Resp B/P (MAP) Pulse Ox O2 Delivery O2 Flow Rate FiO2 02/27/19 03:05 98.4 86 16 150/90 96 Room Air Status: improved Disposition: HOME, SELF-CARE Condition: Stable Scripts Phenazopyridine Hcl* (PYRIDIUM*) 200 Mg Tablet 200 MG ORAL THREE TIMES A DAY, #6 TAB 0 Refills Prov: Braulio Jay MD 02/27/19 Cephalexin* (KEFLEX*) 500 Mg Capsule 500 MG ORAL TID, #21 CAP Prov: Braulio Jay MD 02/27/19 Patient Instructions: Urinary Tract Infection Additional Instructions: Increase fluids. Follow-up your doctor in 7 days. Return if symptoms worsen. Braulio Jay MD Feb 27, 2019 03:29
[2019-02-27] MEDS ORDERED: Cephalexin 500mg cap ORAL ONE (03:30)
[2019-02-27] MEDS ORDERED: Phenazopyridine 200mg tab ORAL ONE (03:30)
--- NOTE | 2019-02-27 03:40 | NUR ---
ED Nurse Note: pt attempted to collect urine but was unable to catch the urine by accident. water offered and given. currently awaiting to collect urine sample.
[2019-02-27 04:08] VITALS: BP 148/90
--- NOTE | 2019-02-27 04:10 | NUR ---
ER DISCHARGE NOTE: Patient is cleared to be discharged per ERMD, pt is aox4, on room air, with stable vital signs. pt was given dc and prescription instructions, pt was able to verbalize understanding, pt id band removed without complications. pt is able to ambulate with steady gait. pt took all belongings.
== END 2019-02-27 04:08 | disposition home or self-care (01) ==
LOC: EMR 03:30
DX: N30.00 Acute cystitis without hematuria (principal); E11.9 Type 2 diabetes mellitus without complications; I11.0 Hypertensive heart disease with heart failure; I50.9 Heart failure, unspecified
CPT/HCPCS: 87086; 87181; 99283

== ENCOUNTER 2020-09-06 11:41 | Emergency (ER) | payer MEDICAID ==
[~2020-09-06] VITALS: Ht 162.6 cm; Wt 123.4 kg
[~2020-09-06 11:41] MED LIST changes: +CEPHALEXIN500 MG ORAL; +PHENAZOPYRIDIN200 MG ORAL
[2020-09-06] MEDS ORDERED: Albuterol ud Inhalation HHN ONE (12:00)
--- NOTE | 2020-09-06 12:21 | Emergency Room Report ---
History of Present Illness General Chief Complaint: Flu Like Symptoms Source: Patient Present Illness HPI Patient is a 50-year-old female past medical history of diabetes but states that recently she was taken off of her medications, obesity and hypertension who presents to the ER complaining of bloody sputum. Patient states that she was diagnosed with Covid on August 28. She states that she was having no symptoms and decided to get testing and tested positive. She states that for the past several days she has had a cough with blood-tinged sputum. She denies any fever or chills. She denies any chest pain or shortness of breath. She denies any nausea or vomiting. Patient states that she is a smoker but has tried to stop smoking since being diagnosed with Covid. Patient states that she was given Mucinex by her doctor for her cough. Allergies: Coded Allergies: No Known Allergies (Unverified , 07/11/13) COVID-19 Screening Contact w/high risk pt: Yes Experienced COVID-19 symptoms?: Yes COVID-19 Testing performed MANAGER PRICING: Yes COVID-19 Screening: Positive COVID-19 COVID-19 Testing Source: nasal Patient History Reviewed Nursing Documentation: PMH: Agreed; PSxH: Agreed Nursing Documentation-PMH Hx Cardiac Problems: Yes - CHF Hx Hypertension: Yes Hx Pacemaker: No Hx Asthma: Yes Hx COPD: No Hx Diabetes: Yes Hx Cancer: No Hx Gastrointestinal Problems: No Hx Dialysis: No Hx Neurological Problems: No Hx Cerebrovascular Accident: No Hx Seizures: No Review of Systems All Other Systems: negative except mentioned in HPI Physical Exam Vital Signs Date Time Temp Pulse Resp B/P (MAP) Pulse Ox O2 Delivery O2 Flow Rate FiO2 09/06/20 11:57 98.2 87 18 123/78 (93) 95 Room Air Sp02 EP Interpretation: reviewed, normal General Appearance: no apparent distress, alert, GCS 15, non-toxic Head: normocephalic, atraumatic Eyes: bilateral eye normal inspection, bilateral eye PERRL ENT: hearing grossly normal, normal pharynx, no angioedema, normal voice Neck: full range of motion, supple/symm/no masses Respiratory: wheezing Cardiovascular #1: regular rate, rhythm, no edema Gastrointestinal: normal bowel sounds, non tender, soft, non-distended, no guarding, no rebound, overweight Rectal: deferred Musculoskeletal: normal range of motion 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 She states that she is stop smoking since being diagnosed with Covid. Patient states that she does not need a nicotine patch. Patient's oxygen saturation is in the mid 90s. I have given her oral Decadron a nd given her an albuterol treatment. Patient's chest x-ray demonstrates no evidence of infiltrate. It demonstrates cardiomegaly that was present in the past. I offered the patient monoclonal antibodies but she states that she is nervous about it. She states that she will go home and research it more and discuss it with her family. After discussing risks and benefits of further diagnostics, treatment plans, as well as indications for and risks of admission, the patient is agreeable to being discharged home. I have explained that their evaluation and treatment in the emergency department today is an important step towards them achieving better health but that their evaluation today is not intended to replace further evaluation and treatment by a physician in their local clinic. I have explained that while the current findings suggest no immediate life threatening emergency they will require further evaluation and treatment by a physician of their choice in their area. They understand that it will be necessary for them to review the final reports of their ED visit with their clinic physician. We have reviewed indications for return to the Emergency Department. I have explained that additional time may need to pass and/or additional testing as an outpatient may be necessary before a definitive diagnosis can be made. They tell me they are willing to follow up as instructed within the timeframe I recommend. They appear to understand what we discussed. Additionally they understand that if they are unable to be seen by an outpatient physician they are welcome, and in fact should, return to the Emergency Department for a repeat evaluation. The patient is stable at time of discharge. Chest X-Ray Diagnostic Results Chest X-Ray Diagnostic Results : Chest X-Ray Ordered: Yes # of Views/Limited/Complete: 1 View Indication: Other - Cough EP Interpretation: Yes Interpretation: no consolidation, no effusion, no pneumothorax, no acute cardiopulmonary disease, other - Cardiomegaly Impression: No acute disease Electronically Signed by: Samantha Melo MD Last Vital Signs Date Time Temp Pulse Resp B/P (MAP) Pulse Ox O2 Delivery O2 Flow Rate FiO2 09/06/20 11:57 98.2 87 18 123/78 (93) 95 Room Air Disposition: HOME, SELF-CARE Condition: Stable Scripts Azithromycin* (ZITHROMAX*) 250 Mg Tablet 250 MG ORAL DAILY, #6 TAB 0 Refills Take two tables once daily for 1 day, then one tablet once daily for 4 days. Prov: Samantha Melo M.D. 09/06/20 Dexamethasone* (DECADRON*) 2 Mg Tablet 10 MG PO DAILY for 3 Days, TAB Prov: Samantha Melo M.D. 09/06/20 Albuterol Sulfate* (ALBUTEROL SULFATE HHN*) 2.5 Mg/3 Ml Vial.neb 2.5 MG HHN Q4H PRN for Shortness of Breath, #25 VIAL Prov: Samantha Melo M.D. 09/06/20 Additional Instructions: The patient was provided with discharge instructions, notified to follow-up with a primary care doctor and or specialist in the next 24-48 hours, and to return to the ED if they have worsening of their symptoms. Please note that this report is being documented using [employer] technology. This can lead to erroneous entry secondary to incorrect interpretation by the dictating instrument. Samantha Melo M.D. Sep 06, 2020 12:21
[2020-09-06 12:34] VITALS: BP 123/78
--- NOTE | 2020-09-06 12:36 | NUR ---
ED Nurse Note: pt stated she found out she had covid recently. she's had no sx other than coughing. she stated when she coughed up phlem it had red specks in it and it scared her so she came in
[2020-09-06] MEDS ORDERED: ZITHROMAX250 MG ORAL (12:59)
[2020-09-06] MEDS ORDERED: ALBUTEROL2.5 MG/3 M HHN (12:59)
[2020-09-06] MEDS ORDERED: DEXAMETHASONE2 MG PO (12:59)
[2020-09-06 13:30] VITALS: BP 125/78
--- NOTE | 2020-09-06 13:35 | NUR ---
ED Nurse Note: Pt cleared by health care Provider for discharge. DC instructions/prescription was given and explained to pt and verbalized understanding of teachings. All medical deviecs such as ID band removed. Pt is AAO x4, ambulatory and left with all personal belongings.
[2020-09-06 13:41] VITALS: BP 125/78
--- NOTE | 2020-09-06 15:18 | Diagnostic Imaging Report ---
Indication: Cough Technique: One view of the chest Comparison: none Findings: Body habitus limits evaluation. The heart is enlarged. There is bilateral interstitial congestion, extent of which is similar to the previous exam. No focal airspace disease. There is slight blunting of left costophrenic sulcus, small effusion possible. Impression: Cardiomegaly. Evidence of mild bilateral pulmonary venous congestion Likely small left pleural effusion
== END 2020-09-06 13:43 | disposition home or self-care (01) ==
LOC: EMR 12:41
DX: U07.1 COVID-19 (principal); R04.2 Hemoptysis; J11.1 Influenza due to unidentified influenza virus with other respiratory manifestations; I11.0 Hypertensive heart disease with heart failure; I50.9 Heart failure, unspecified; J45.909 Unspecified asthma, uncomplicated; E11.9 Type 2 diabetes mellitus without complications; F17.200 Nicotine dependence, unspecified, uncomplicated; Z79.899 Other long term (current) drug therapy
CPT/HCPCS: 71045; 94640; J8540; Z7502; 99283